=== PATIENT | male | born 1925 | race Caucasian/White ===

== ENCOUNTER 2016-11-02 19:00 | Inpatient (IN) | payer OTHER, MEDICARE ==
[~2016-11-02] VITALS: Ht 182.9 cm; Wt 76.4 kg
[~2016-11-02 19:00] MED LIST: ANSHCCR EXT; CLC100 PO; CMD5 PO; DILT120C68 PO; FLM4 PO; GABA1CAP PO; LSX20 PO; TRAM-10 PO; TRIATAB3 PO; ZNTT/150 PO
[2016-11-02] MEDS ORDERED: ALBUT/IPRATROP 3MG/0.5MG NEB 3 ML VIAL INH STA ×2 (21:22→21:32)
[2016-11-02] MEDS ORDERED: SODIUM CHLORIDE 0.9% 1000ML 1,000 ML IV STA (21:22)
[2016-11-02 21:50] LABS: ISTAT CREATININE 1.5 mg/dl (0.6-1.3); ISTAT HEMOGLOBIN 10.5 g/dl (14.0-18.0); ISTAT IONIZED CALCIUM 1.14 mmol/l (1.12-1.32)
[2016-11-02 21:54] LABS: HEMATOCRIT 31.9 % (42-52); MEAN CELL VOLUME 86.4 fL (80-100); MEAN CORPUSCULAR HEMOGLOBIN 27.6 pg (25-34); PLATELET COUNT 158 K/uL (130-400); RED BLOOD COUNT 3.69 M/uL (4.7-6.1); WHITE BLOOD COUNT 6.75 K/uL (4.8-10.8)
[2016-11-02 22:00] LABS: INR 2.8 (0.9-1.1); PROTHROMBIN TIME (PATIENT) 31.8 SECONDS (9.0-12.0)
[2016-11-02 22:06] LABS: BUN/CREATININE RATIO 21.3 (10-20); CALCIUM 8.8 mg/dl (8.5-10.1); CREATININE 1.7 mg/dl (0.60-1.40); MAGNESIUM 2.2 mg/dl (1.8-2.4); POTASSIUM 4.4 mmol/L (3.5-5.1)
--- NOTE | 2016-11-02 22:11 | DIAGNOSTIC IMAGING REPORT ---
CHEST ONE VIEW PORTABLE HISTORY: fever COMPARISON: Chest 06/27/2014. FINDINGS: Moderate right and small left pleural effusions are similar to the prior study. There is diffuse interstitial and vascular thickening consistent with pulmonary edema. The heart remains mildly enlarged. There are poststernotomy changes. No pneumothorax. Right basilar densities favor compressive atelectasis from the pleural fluid. IMPRESSION: No change in the pulmonary edema pattern and bilateral pleural effusions. Electronically signed by: Luis A Bhandari M.D. 11/02/2016 10:09 PM Dictated Date/Time: 11/02/2016 10:08 PM
[2016-11-02 22:16] LABS: CKMB/CK RATIO 1.6 (0-3.0)
[2016-11-02] MEDS ORDERED: FLM4 PO (22:21)
[2016-11-02] MEDS ORDERED: WARF5TAB7 PO (22:21)
[2016-11-02] MEDS ORDERED: PRS5 PO (22:21)
[2016-11-02] MEDS ORDERED: LPT/20 PO (22:21)
[2016-11-02] MEDS ORDERED: ISOS-11 PO (22:21)
[2016-11-02] MEDS ORDERED: DILT180C96 PO (22:21)
[2016-11-02] MEDS ORDERED: WARF2.5T8 PO (22:21)
[2016-11-02] MEDS ORDERED: LSX40 PO (22:21)
[2016-11-02] MEDS ORDERED: MAGN400T6 PO (22:21)
[2016-11-02] MEDS ORDERED: FUROSEMIDE 40 MG/4 ML VIAL IV STA (22:25)
[2016-11-02] MEDS ORDERED: METOPROLOL TARTRATE 1 MG/ML VIAL IV STA (22:26)
[2016-11-02 22:39] VITALS: PULSE 136; O2SAT 95
[2016-11-02 22:52] LABS: BASO % 0.3 %; BASO ABS # 0.02 K/uL (0-0.2); COMPLETE YES; DOHLE BODIES OCCASIONAL; EOS % 0.7 %; IG% 0.1 %; LYMPH % 7.3 %; LYMPH ABS # 0.49 K/uL (1.2-3.4); MONO % 5.8 %; NEUT % 85.8 %; OVALOCYTES 1+; POIKILOCYTOSIS PRESENT; SCHISTOCYTES OCCASIONAL; TOXIC GRANULATION 1+
[2016-11-02] MEDS ORDERED: ACETAMINOPHEN 325 MG TAB PO PRN (23:30)
[2016-11-02] MEDS ORDERED: ZOLPIDEM TARTRATE 5 MG TAB PO PRN (23:30)
[2016-11-02] MEDS ORDERED: HYDROCORTISONE HC 2.5% CRM 30GM TUBE EXT PRN (23:30)
[2016-11-02] MEDS ORDERED: NITROGLYCERIN 0.4 MG SL PER TAB CHARGE SL PRN (23:30)
[2016-11-02] MEDS ORDERED: ONDANSETRON INJ 2 MG/ML 2 ML VIAL IV PRN ×2 (23:30→23:45)
[2016-11-02] MEDS ORDERED: TRAMADOL HCL 50 MG TAB PO PRN (23:30)
[2016-11-02] MEDS ORDERED: OSELTAMIVIR PHOSPHATE 75 MG CAP PO STA (23:36)
[2016-11-02] MEDS ORDERED: VANCOMYCIN INJ 1,000 MG in SODIUM CHLORIDE 0.9% 250ML 250 ML IV STA (23:39)
[2016-11-02] MEDS ORDERED: METOPROLOL TARTRATE 1 MG/ML VIAL IV PRN (23:45)
[2016-11-03 00:20] LABS: CKMB/CK RATIO 1.8 (0-3.0)
[2016-11-03 00:27] LABS: MANUAL MICROSCOPIC REQUIRED? NO; REVIEW REQ? YES; URINE APPEARANCE CLEAR (CLEAR); URINE BILIRUBIN NEG (NEG); URINE COLOR YELLOW; URINE EPITHELIAL CELL AUTO 20-30 /lpf (0-5); URINE NITRITE NEG (NEG); URINE SPECIFIC GRAVITY 1.008 (1.000-1.030); UROBILINOGEN NEG (NEG); ZZUR CULT IF INDIC CLEAN CATCH YES
[2016-11-03] MEDS ORDERED: PIPERACILL/TAZOBAC IV 3.375 GM in DEXTROSE 5% 100ML IV ONE (00:30)
[2016-11-03] MEDS ORDERED: VANCOMYCIN CONSULT ACTIVE PRN (00:30)
[2016-11-03] MEDS ORDERED: LEVOFLOXACIN CONSULT ACTIVE PRN (00:30)
[2016-11-03] MEDS ORDERED: PIPERACILL/TAZOBAC CONSULT ACTIVE PRN (00:30)
[2016-11-03] MEDS ORDERED: LEVOFLOXACIN / D5W 500 MG in PREMIXED IN D5W 100 ML IV SCH (01:00)
[2016-11-03] MEDS: METHYLPREDNISOLONE IV 60 MG in SYRINGE 0 ML IV SCH ×4 (02:04→17:44)
--- NOTE | 2016-11-03 02:31 | EMERGENCY ROOM VISIT NOTE ---
History Report prepared by Benja: Cuco Robles Under the Supervision of: Dr. Maury Patel D.O. First contact with patient: 21:03 Chief Complaint: COUGH Stated Complaint: COUGH, WEAKNESS Nursing Triage Summary: Patients daughter reports congestion, weakness, and not being able to do much today. Daughter states "I didn't want to give him lots of over the counter meds since he's on a lot of meds and I was just diagnosed with the flu." History of Present Illness The patient is an 89 year old male who presents to the Emergency Room with complaints of worsening weakness and a persistent cough that began 3-4 days prior to arrival. The patient's daughter states that he was unable to perform his usual daily activities today secondary to his weakness. The patient also complains intermittent shortness of breath. He does have home oxygen, but only uses it on an as-needed basis. He denies any history of asthma or COPD. The patient denies headache, change in vision, fevers, nausea, vomiting, diarrhea, pain with urination, and melena. Source of History: patient, family Onset: 3-4 days PHARMACEUTICAL REPRESENTATIVE Position: other (Global) Quality: other (weakness) Timing: worsening Associated Symptoms: + SOB, No fevers Review of Systems See HPI for pertinent positives & negatives. A total of 10 systems reviewed and were otherwise negative. Past Medical & Surgical Medical Problems: (1) Hypoxia (2) Influenza A Family History No pertinent family history secondary to age. Social History Smoking Status: Never Smoker Drug Use: none Marital Status: Occupation Status: retired Current/Historical Medications Scheduled Atorvastatin (Atorvastatin Calcium), 20 MG PO HS Diltiazem Hcl Coated Beads (Diltiazem Cd), 180 MG PO QAM Docusate Sodium (Docusate Sodium), 100 MG PO BID Finasteride (Finasteride), 5 MG PO HS Furosemide (Furosemide), 40 MG PO QAM Gabapentin (Neurontin), 100 MG PO DAILY Isosorbide Mononitrate (Isosorbide Mononitrate ER), 30 MG PO QAM Magnesium Oxide (Mag-Ox), 400 MG PO BID Ranitidine (Zantac), 150 MG PO DAILY Tamsulosin HCl (Tamsulosin HCl), 0.4 MG PO HS Warfarin Sod (Jantoven), 2.5 MG PO MONDAYS Warfarin Sod (Jantoven), 5 MG PO 6XWK Scheduled PRN Hydrocortisone (Proctosol Hc), 1 APPLN EXT BID PRN for Hemorrhoids Tramadol (Ultram), 50 MG PO Q8H PRN for Pain Allergies Coded Allergies: No Known Allergies (Verified , 11/02/16) Physical Exam Vital Signs Date Time Temp Pulse Resp B/P Pulse Ox O2 Delivery O2 Flow Rate FiO2 11/02/16 23:01 130 20 126/69 100 BiPAP 35 11/02/16 22:44 125 106/70 11/02/16 22:39 136 95 35 11/02/16 22:23 147 24 107/63 100 Nasal Cannula 3.0 11/02/16 21:52 99 34 102/78 93 Nasal Cannula 2.0 11/02/16 21:18 93 11/02/16 19:05 36.5 101 20 94/45 100 Room Air Physical Exam GENERAL: Sitting up in bed, chronically ill appearing. On nasal cannula. No distress, non-toxic EYE EXAM: normal conjunctiva, PERRL and EOM's grossly intact OROPHARYNX: no exudate, no erythema, lips, buccal mucosa, and tongue normal and mucous membranes are moist NECK: supple, +JVD LUNGS: Rhonchi bilateral. Normal chest wall mechanics HEART: Tachycardiac rate. no murmurs, S1 normal and S2 normal ABDOMEN: abdomen soft, non-tender, normo-active bowel sounds, no masses, no rebound or guarding. BACK: Back is symmetrical on inspection and there is no deformity, no midline tenderness, no CVA tenderness. SKIN: no rashes and no bruising UPPER EXTREMITIES: upper extremities are grossly normal. LOWER EXTREMITIES: Bilateral pitting edema. NEURO EXAM: Normal sensorium, cranial nerves II-XII grossly intact, normal speech, no gross weakness of arms, no gross weakness of legs. Medical Decision & Procedures ER Provider Diagnostic Interpretation: Xray results per the radiologist and my interpretation. CHEST ONE VIEW PORTABLE HISTORY: fever COMPARISON: Chest 06/27/2014. FINDINGS: Moderate right and small left pleural effusions are similar to the prior study. There is diffuse interstitial and vascular thickening consistent with pulmonary edema. The heart remains mildly enlarged. There are poststernotomy changes. No pneumothorax. Right basilar densities favor compressive atelectasis from the pleural fluid. IMPRESSION: No change in the pulmonary edema pattern and bilateral pleural effusions. Electronically signed by: Luis A Bhandari M.D. 11/02/2016 10:09 PM Dictated Date/Time: 11/02/2016 10:08 PM Laboratory Results 11/02/16 21:35 Red Blood Count 3.69, Mean Corpuscular Volume 86.4, Mean Corpuscular Hemoglobin 27.6, Mean Corpuscular Hemoglobin Concent 32.0, Mean Platelet Volume 9.0, Neutrophils (%) (Auto) 85.8, Lymphocytes (%) (Auto) 7.3, Monocytes (%) (Auto) 5.8, Eosinophils (%) (Auto) 0.7, Basophils (%) (Auto) 0.3, Neutrophils # (Auto) 5.79, Lymphocytes # (Auto) 0.49, Monocytes # (Auto) 0.39, Eosinophils # (Auto) 0.05, Basophils # (Auto) 0.02 11/02/16 21:16 Test 11/02/16 21:16 11/02/16 21:34 11/02/16 21:35 11/02/16 21:41 Prothrombin Time 31.8 SECONDS (9.0-12.0) Prothromb Time International Ratio 2.8 (0.9-1.1) Est Creatinine Clear Calc Drug Dose 32.0 ml/min Estimated GFR () 40.8 Estimated GFR (Non- 35.2 BUN/Creatinine Ratio 21.3 (10-20) Calcium Level 8.8 mg/dl (8.5-10.1) Magnesium Level 2.2 mg/dl (1.8-2.4) Total Bilirubin 0.8 mg/dl (0.2-1) Direct Bilirubin 0.3 mg/dl (0-0.2) Aspartate Amino Transf (AST/SGOT) 17 U/L (15-37) Alanine Aminotransferase (ALT/SGPT) 12 U/L (12-78) Alkaline Phosphatase 62 U/L (45-117) Total Protein 7.0 gm/dl (6.4-8.2) Albumin 3.3 gm/dl (3.4-5.0) Influenza Type A Antigen POS for Influ A (NEG) Influenza Type B Antigen Neg for Influ B (NEG) Bedside Hemoglobin 10.5 g/dl (14.0-18.0) Bedside Hematocrit 31 % (42-52) Bedside Sodium 140 mEq/L (135-144) Bedside Potassium 4.4 mEq/L (3.3-5.0) Bedside Chloride 101 mEq/L (101-112) Bedside Total CO2 26 mEq/l (24-31) Anion Gap 19.0 mmol/L (16-25) Bedside Blood Urea Nitrogen 39 mg/dl (7-18) Bedside Creatinine 1.5 mg/dl (0.6-1.3) Bedside Glucose (other) 143 mg/dl (70-99) Bedside Ionized Calcium (Chuck) 1.14 mmol/l (1.12-1.32) White Blood Count 6.75 K/uL (4.8-10.8) Red Blood Count 3.69 M/uL (4.7-6.1) Hemoglobin 10.2 g/dL (14.0-18.0) Hematocrit 31.9 % (42-52) Mean Corpuscular Volume 86.4 fL (80-100) Mean Corpuscular Hemoglobin 27.6 pg (25-34) Mean Corpuscular Hemoglobin Concent 32.0 g/dl (32-36) Platelet Count 158 K/uL (130-400) Mean Platelet Volume 9.0 fL (7.4-10.4) Neutrophils (%) (Auto) 85.8 % Lymphocytes (%) (Auto) 7.3 % Monocytes (%) (Auto) 5.8 % Eosinophils (%) (Auto) 0.7 % Basophils (%) (Auto) 0.3 % Neutrophils # (Auto) 5.79 K/uL (1.4-6.5) Lymphocytes # (Auto) 0.49 K/uL (1.2-3.4) Monocytes # (Auto) 0.39 K/uL (0.11-0.59) Eosinophils # (Auto) 0.05 K/uL (0-0.5) Basophils # (Auto) 0.02 K/uL (0-0.2) RDW Standard Deviation 55.0 fL (36.4-46.3) RDW Coefficient of Variation 17.4 % (11.5-14.5) Immature Granulocyte % (Auto) 0.1 % Immature Granulocyte # (Auto) 0.01 K/uL (0.00-0.02) Toxic Granulation 1+ Dohle Bodies OCCASIONAL Poikilocytosis PRESENT Ovalocytes 1+ Schistocytes OCCASIONAL Bedside Lactic Acid Venous 2.10 mmol/L (0.90-1.70) Laboratory results per my review. Medications Administered Medications (Trade) Dose Ordered Sig/Vickey Route Start Time Stop Time Status Last Admin Dose Admin Sodium Chloride (Nss 1000ml) 1,000 ml @ 999 mls/hr Q1H1M STAT IV 11/02/16 21:22 11/02/16 22:22 DC 11/02/16 21:50 999 MLS/HR Albuterol/ Ipratropium (Duoneb) 3 ml NOW STAT INH 11/02/16 21:22 11/02/16 21:23 DC 11/02/16 21:50 3 ML Albuterol/ Ipratropium (Duoneb) 3 ml NOW STAT INH 11/02/16 21:32 11/02/16 21:33 DC 11/02/16 22:08 3 ML Furosemide (Lasix Inj) 40 mg NOW STAT IV 11/02/16 22:25 11/02/16 22:26 DC 11/02/16 22:44 40 MG Metoprolol Tartrate (Lopressor Iv) 2.5 mg NOW STAT IV 11/02/16 22:26 11/02/16 22:27 DC 11/02/16 22:44 2.5 MG ECG Indication: weakness Rate (beats per minute): 95 Rhythm: atrial fibrillation Findings: other (Poor baseline. Low voltage) ED Course ED COURSE: Vital signs were reviewed and showed Hypotensive and tachycardiac vitals. The patients medical record was reviewed The above diagnostic studies were performed and reviewed. ED treatments and interventions as stated above. 2115: The patient was evaluated in room B4. A complete history and physical examination was performed. 2: Ordered Albuterol 3 mL INH, Sodium Chloride 1000 mL @ 999 mL/hr IV. 2131: Ordered Albuterol 3 mL INH. 5: Ordered Furosemide 40 mg IV, Metoprolol 2.5 mg IV. 7: I discussed the case with Dr. Ailyn [place] [facility] [place], he will evaluate the patient for further treatment. 2310: Upon reevaluation, the patient is resting comfortably.I discussed my findings with the patient and he understands and agrees with the treatment plan. Based on the patients age, coexisting illnesses, exam and lab findings the decision to treat as an inpatient was made. The patient remained stable while under my care. The patient will be evaluated for further management. Medical Decision Differential diagnoses includes but is not limited to pneumonia, bronchitis, COPD/Asthma exacerbation, pneumothorax, pulmonary embolism, congestive heart failure, acute coronary syndrome Patient is an 82-year-old male who presents the ER for shortness of breath. On exam he does have crackles bilaterally associated with JVD and pitting edema in his lower extremities. Chest x-ray supports a right pleural effusion associated with pulmonary edema. He was given a dose of Lasix and placed on BiPAP with improvement of his symptoms. Initially with a productive cough and multiple sick contacts with family is given a neb treatment. He did flip into A. fib with RVR. His influenza was positive. Labs show no significant leukocytosis or anemia. BMP is remarkable for creatinine 1.7. Troponin was detectable at 0.2. EKG had a terrible baseline but did show A. fib with RVR. UA was unremarkable. He was also given a dose of Lasix as I do feel like this is clearly related to a combination of heart failure and influenza. On BiPAP patient did improve and his respiratory rate came down. On room air he was in the high 80s consequently was initially placed on nasal cannula and switched BiPAP throughout his stay in the ER. He was also given a dose of Lopressor for his A. fib with RVR in the 150s which was likely induced by the treatments. Consults Time Called: 2300 Consulting Physician: Dr. Ailyn PERKINS Hospitalist Returned Call: [phone] I discussed the case with Dr. [facility]n [facility], he will evaluate the patient for further treatment. Impression Primary Impression: Heart failure Additional Impressions: Influenza Elevated troponin Atrial fibrillation with RVR Hypoxia Critical Care I have personally spent 90 minutes of critical care time in the direct management of this patient. This includes bedside care, interpretation of diagnostic studies, and testing, discussion with consultants, patient, and family members, and other required patient management activities. This 90 minutes is in excess of all separately billable procedures. Scribe Attestation The scribe's documentation has been prepared under my direction and personally reviewed by me in its entirety. I confirm that the note above accurately reflects all work, treatment, procedures, and medical decision making performed by me. Departure Information Dispostion Being Evaluated By Hospitalist Referrals Magda Quiroga DO (PCP) Patient Instructions My [facility] Problem Qualifiers Primary Impression: Heart failure Heart failure type: unspecified heart failure type Heart failure chronicity: acute Qualified Codes: I50.9 - Heart failure, unspecified
[2016-11-03] MEDS ORDERED: LEVALBUTEROL/IPRATROPIUM NEB INH SCH (03:00)
[2016-11-03] MEDS ORDERED: VANCOMYCIN INJ 1,800 MG in SODIUM CHLORIDE 0.9% 500ML 500 ML IV SCH (03:00)
--- NOTE | 2016-11-03 04:53 | History and Physical ---
History & Physical Date & Time of Service: Nov 03, 2016 at 04:36 Chief Complaint: Hypoxia, Influenza A Primary Care Physician: Magda Quiroga DO History of Present Illness Source: patient, family The patient is an 82-year-old male who presents emergency department with progressively worsening cough, intermittent shortness of breath and generalized weakness that began about 4 days prior to arrival. His daughter reports that he was unable to perform his usual daily activities due to severe weakness. Social History Smoking Status: Never Smoker Smokeless Tobacco Use: No Alcohol Use: none Drug Use: none Marital Status: Occupational Status: retired Immunizations History of Influenza Vaccine: Unknown History of Tetanus Vaccine?: Unknown History of Pneumococcal: Yes Pneumococcal Date: Oct 30, 2011 History of Hepatitis B Vaccine: No Multi-Drug Resistant Organisms History of MDRO: No Allergies Coded Allergies: No Known Allergies (Verified , 11/02/16) Home Medications Scheduled Atorvastatin (Atorvastatin Calcium), 20 MG PO HS Diltiazem Hcl Coated Beads (Diltiazem Cd), 180 MG PO QAM Docusate Sodium (Docusate Sodium), 100 MG PO BID Finasteride (Finasteride), 5 MG PO HS Furosemide (Furosemide), 40 MG PO QAM Gabapentin (Neurontin), 100 MG PO DAILY Isosorbide Mononitrate (Isosorbide Mononitrate ER), 30 MG PO QAM Magnesium Oxide (Mag-Ox), 400 MG PO BID Ranitidine (Zantac), 150 MG PO DAILY Tamsulosin HCl (Tamsulosin HCl), 0.4 MG PO HS Warfarin Sod (Jantoven), 2.5 MG PO MONDAYS Warfarin Sod (Jantoven), 5 MG PO 6XWK Scheduled PRN Hydrocortisone (Proctosol Hc), 1 APPLN EXT BID PRN for Hemorrhoids Tramadol (Ultram), 50 MG PO Q8H PRN for Pain Review of Systems The patient denies chest pain, palpitations, lower extremity swelling, vision change, hearing change, sore throat, fevers, chills, sweats, weight change, fatigue, nausea, vomiting, abdominal pain, pelvic pain, blood in urine or stool , dysuria, urinary frequency or urgency, lightheadedness, dizziness, headache, memory loss, rash, abnormal bruising or bleeding, imbalance, focal weakness, back or neck pain, night sweats, or allergy symptoms. The review of systems is otherwise negative other than for that already noted above, and at least 10 systems have been reviewed. Physical Exam Vital Signs Date Time Temp Pulse Resp B/P Pulse Ox O2 Delivery O2 Flow Rate FiO2 11/03/16 01:25 108 11/03/16 00:17 114 16 120/78 98 BiPAP 11/02/16 23:01 130 20 126/69 100 BiPAP 35 11/02/16 22:44 125 106/70 11/02/16 22:39 136 95 35 11/02/16 22:23 147 24 107/63 100 Nasal Cannula 3.0 11/02/16 21:52 99 34 102/78 93 Nasal Cannula 2.0 11/02/16 21:18 93 11/02/16 19:05 36.5 101 20 94/45 100 Room Air The patient is awake, well-developed and adequately nourished, alert and oriented 3, normocephalic and atraumatic, lying in bed and in no acute distress. HEENT--PERRL, EOMI, mucous membranes and oropharynx dry. Neck--supple, no JVD or bruits, thyroid normal, trachea midline, no adenopathy. Heart--normal S1 and S2, no extra beats, no murmurs, rubs or gallops. Lungs--rhonchi and wheezes bilaterally, no respiratory distress, no accessory muscle use. Abdomen--normal bowel sounds and soft, nontender and nondistended, no hernias or masses, no organomegaly. Extremities--no cyanosis, clubbing or edema. There are good distal pulses b/l. Dermatologic--normal skin turgor, normal color, warm and dry, no abnormal lymph nodes, no rash. Neurologic--cranial nerves II through XII grossly intact, motor and sensory examination normal. Psychiatric--normal affect. Diagnostics Laboratory Results Results Past 24 Hours Test 11/02/16 21:16 11/02/16 21:34 11/02/16 21:35 11/02/16 21:41 Range/Units Prothrombin Time 31.8 9.0-12.0 SECONDS Prothromb Time International Ratio 2.8 0.9-1.1 Sodium Level 141 136-145 mmol/L Potassium Level 4.4 3.5-5.1 mmol/L Chloride Level 105 98-107 mmol/L Carbon Dioxide Level 23 21-32 mmol/L Anion Gap 13.0 19.0 16-25 mmol/L Blood Urea Nitrogen 36 7-18 mg/dl Creatinine 1.70 0.60-1.40 mg/dl Est Creatinine Clear Calc Drug Dose 32.0 ml/min Estimated GFR () 40.8 Estimated GFR (Non- 35.2 BUN/Creatinine Ratio 21.3 10-20 Random Glucose 135 70-99 mg/dl Calcium Level 8.8 8.5-10.1 mg/dl Magnesium Level 2.2 1.8-2.4 mg/dl Total Bilirubin 0.8 0.2-1 mg/dl Direct Bilirubin 0.3 0-0.2 mg/dl Aspartate Amino Transf (AST/SGOT) 17 15-37 U/L Alanine Aminotransferase (ALT/SGPT) 12 12-78 U/L Alkaline Phosphatase 62 45-117 U/L Total Creatine Kinase 126 39-308 U/L Creatine Kinase MB 2.0 0.5-3.6 ng/ml Creatine Kinase MB Ratio 1.6 0-3.0 Troponin I 0.238 0-0.045 ng/ml Total Protein 7.0 6.4-8.2 gm/dl Albumin 3.3 3.4-5.0 gm/dl Influenza Type A Antigen POS for Influ A NEG Influenza Type B Antigen Neg for Influ B NEG Bedside Hemoglobin 10.5 14.0-18.0 g/dl Bedside Hematocrit 31 42-52 % Bedside Sodium 140 135-144 mEq/L Bedside Potassium 4.4 3.3-5.0 mEq/L Bedside Chloride 101 101-112 mEq/L Bedside Total CO2 26 24-31 mEq/l Bedside Blood Urea Nitrogen 39 7-18 mg/dl Bedside Creatinine 1.5 0.6-1.3 mg/dl Bedside Glucose (other) 143 70-99 mg/dl Bedside Ionized Calcium (Chuck) 1.14 1.12-1.32 mmol/l White Blood Count 6.75 4.8-10.8 K/uL Red Blood Count 3.69 4.7-6.1 M/uL Hemoglobin 10.2 14.0-18.0 g/dL Hematocrit 31.9 42-52 % Mean Corpuscular Volume 86.4 80-100 fL Mean Corpuscular Hemoglobin 27.6 25-34 pg Mean Corpuscular Hemoglobin Concent 32.0 32-36 g/dl Platelet Count 158 130-400 K/uL Mean Platelet Volume 9.0 7.4-10.4 fL Neutrophils (%) (Auto) 85.8 % Lymphocytes (%) (Auto) 7.3 % Monocytes (%) (Auto) 5.8 % Eosinophils (%) (Auto) 0.7 % Basophils (%) (Auto) 0.3 % Neutrophils # (Auto) 5.79 1.4-6.5 K/uL Lymphocytes # (Auto) 0.49 1.2-3.4 K/uL Monocytes # (Auto) 0.39 0.11-0.59 K/uL Eosinophils # (Auto) 0.05 0-0.5 K/uL Basophils # (Auto) 0.02 0-0.2 K/uL RDW Standard Deviation 55.0 36.4-46.3 fL RDW Coefficient of Variation 17.4 11.5-14.5 % Immature Granulocyte % (Auto) 0.1 % Immature Granulocyte # (Auto) 0.01 0.00-0.02 K/uL Toxic Granulation 1+ Dohle Bodies OCCASIONAL Poikilocytosis PRESENT Ovalocytes 1+ Schistocytes OCCASIONAL Bedside Lactic Acid Venous 2.10 0.90-1.70 mmol/L Test 11/02/16 23:44 11/02/16 23:55 Range/Units Lactic Acid Level 2.6 0.4-2.0 mmol/L Total Creatine Kinase 110 39-308 U/L Creatine Kinase MB 2.0 0.5-3.6 ng/ml Creatine Kinase MB Ratio 1.8 0-3.0 Troponin I 0.181 0-0.045 ng/ml Urine Color YELLOW Urine Appearance CLEAR CLEAR Urine pH 5.0 4.5-7.5 Urine Specific [place] 1.008 1.000-1.030 Urine Protein NEG NEG Urine Glucose (UA) NEG NEG Urine Ketones NEG NEG Urine Occult Blood 1+ NEG Urine Nitrite NEG NEG Urine Bilirubin NEG NEG Urine Urobilinogen NEG NEG Urine Leukocyte Esterase NEG NEG Urine WBC (Auto) 1-5 0-5 /hpf Urine RBC (Auto) 5-10 0-4 /hpf Urine Hyaline Casts (Auto) 5-10 0-5 /lpf Urine Epithelial Cells (Auto) 20-30 0-5 /lpf Urine Bacteria (Auto) NEG NEG Urine Yeast (Auto) NONE PRSENT Microbiology Results 11/02/16 Blood Culture, Received Pending 11/02/16 Blood Culture, Received Pending 11/02/16 Urine Culture, Received Pending Diagnostic Radiology Patient Name: OTIS SOLIZ Unit Number: [id number] Dictated: 11/02/162207 Transcribed: 11/02/162207 PAJ Printed Date/Time: [~ rep prt dt]/[~ rep prt tm] [~ rep ct labl] - [~ rep ct ivnm] [facility] [place] [address] Dictated: 11/02/162207 Transcribed: 11/02/162207 PAJ Printed Date/Time: [~ rep prt dt]/[~ rep prt tm] [~ rep ct labl] - [~ rep ct ivnm] [~ rep ct add3]] CHEST ONE VIEW PORTABLE HISTORY: fever COMPARISON: Chest 06/27/2014. FINDINGS: Moderate right and small left pleural effusions are similar to the prior study. There is diffuse interstitial and vascular thickening consistent with pulmonary edema. The heart remains mildly enlarged. There are poststernotomy changes. No pneumothorax. Right basilar densities favor compressive atelectasis from the pleural fluid. IMPRESSION: No change in the pulmonary edema pattern and bilateral pleural effusions. Electronically signed by: Luis A Bhandari M.D. 11/02/2016 10:09 PM Dictated Date/Time: 11/02/2016 10:08 PM The status of this report is Signed. Draft = Not yet reviewed or approved by Radiologist. Signed = Reviewed and approved by Radiologist. <AttendingPhy></AttendingPhy> <FamilyPhy>Magda Quiroga DO</FamilyPhy> < PrimaryPhy>Magda Quiroga, DO</PrimaryPhy> <UnitNumber>[id number]</UnitNumber > <VisitNumber>[id number]</VisitNumber> <PatientName>OTIS SOLIZ</ PatientName> <DateOfBirth>1925</DateOfBirth> <Location>[facility]</Location> < ServiceDate>11/02/16</ServiceDate> <MNE>ESINDI</MNE> <OrderingPhy>Jorge Maury Granda DO</OrderingPhy> <OrderingPhyMNE>f rep ord dr kimble</OrderingPhyMNE> < DictatingPhyMNE>f rep dict dr kimble</DictatingPhyMNE> <CCListMNE>f rep ct mne</ CCListMNE> <AdmittingPhyMNE>f pt admit dr kimble</AdmittingPhyMNE> <AttendingPhyMNE >f pt attend dr kimble</AttendingPhyMNE> <ConsultingPhyMNE>f pt consult dr kimble</ConsultingPhyMNE> <FamilyPhyMNE>f pt fam dr kimble</FamilyPhyMNE> <OtherPhyMNE>f pt other dr kimble</OtherPhyMNE> < PrimaryPhyMNE>f pt prim care dr kimble</PrimaryPhyMNE> <ReferringPhyMNE>f pt referring dr kimble</ReferringPhyMNE> EKG EKG shows normal sinus rhythm at 95 bpm, left anterior fascicular block, old anteroseptal infarct, no acute ST-T changes. Significant baseline noise is present, and repeat EKG is ordered. Impression Assessment and Plan Influenza A bronchopneumonia--patient will be placed on Tamiflu 75 mg by mouth twice a day, Vancomycin IV per renal dosing, Zosyn 3.375 mg IV every 8 hours, levofloxacin 500 mg IV every 24 hours, Solu-Medrol 40 mg IV every 8 hours, guaifenesin extended release 600 mg by mouth twice a day, nasal cannula 2 L of oxygen titrating to keep pulse ox greater than or equal to 92%. Continue BiPAP started in the emergency department, and tapered down to nasal cannula O2 as tolerated. CAD/hypertension--continue diltiazem CD 180 mg by mouth every morning, isosorbide mononitrate ER 30 mg by mouth every morning, and warfarin 5 mg by mouth 6 times per week excluding Mondays when he takes 2.5 mg. Troponin upon admission is 0.238, which is likely secondary to supply demand mismatch, and he will be admitted to the telemetry unit for serial cardiac enzymes, cardiac rhythm monitoring and a 2-D echocardiogram with Dopplers. Hypercholesterolemia--continue atorvastatin 20 mg by mouth at bedtime. Renal insufficiency--creatinine of 1.70 is slightly above his baseline, and will repeat BMP and magnesium level in a.m. BPH--continue tamsulosin 0.4 mg by mouth at bedtime and finasteride 5 mg by mouth at bedtime. GERD--continue ranitidine 150 mg by mouth daily. Continue gabapentin 100 mg by mouth daily. Level of Care Telemetry Advanced Directives Existing Advance Directive: No Existing Living Will: No Existing Power of Soil Science Teacher: No Resuscitation Status FULL RESUSCITATION VTE Prophylaxis VTE Risk Assessment Done? Y/N: Yes Risk Level: Moderate Given or contraindicated: SCD's
[2016-11-03 05:00] VITALS: BP 106/62; PULSE 99; TEMP 36.4; O2SAT 95; BMI 22.5
[2016-11-03] MEDS ORDERED: PIPERACILL/TAZOBAC IV 3.375 GM in DEXTROSE 5% 100ML 100 ML IV SCH (06:00)
[2016-11-03] MEDS: PIPERACILL/TAZOBAC IV 3.375 GM in DEXTROSE 5% 100ML IV SCH ×3 (06:02→22:00)
[2016-11-03 07:53] LABS: BASO % 0.2 %; BASO ABS # 0.01 K/uL (0-0.2); COMPLETE YES; EOS % 0.2 %; HEMATOCRIT 29.3 % (42-52); IG% 0.2 %; LYMPH % 2.5 %; LYMPH ABS # 0.14 K/uL (1.2-3.4); MEAN CELL VOLUME 85.7 fL (80-100); MEAN CORPUSCULAR HEMOGLOBIN 27.2 pg (25-34); MEAN CORPUSCULAR HGB CONC 31.7 g/dl (32-36); MEAN PLATELET VOLUME 8.9 fL (7.4-10.4); MONO % 1.2 %; NEUT % 95.7 %; PLATELET COUNT 133 K/uL (130-400); RED BLOOD COUNT 3.42 M/uL (4.7-6.1)
[2016-11-03 08:00] VITALS: BP 127/73; PULSE 73; TEMP 36.9; O2SAT 95
[2016-11-03 08:14] LABS: BUN/CREATININE RATIO 20.9 (10-20); CALCIUM 8.5 mg/dl (8.5-10.1); CREATININE 1.7 mg/dl (0.60-1.40); MAGNESIUM 2.1 mg/dl (1.8-2.4); POTASSIUM 3.9 mmol/L (3.5-5.1)
[2016-11-03 08:16] LABS: INR 2.8 (0.9-1.1); PARTIAL THROMBOPLASTIN RATIO 1.6; PROTHROMBIN TIME (PATIENT) 31.1 SECONDS (9.0-12.0)
[2016-11-03 08:23] LABS: CKMB/CK RATIO 1.2 (0-3.0)
[2016-11-03] MEDS ORDERED: OSELTAMIVIR PHOSPHATE 75 MG CAP PO SCH (09:00)
[2016-11-03] MEDS: OSELTAMIVIR PHOSPHATE SUSP 30 MG/5 ML UDP PO SCH ×2 (10:05→20:09)
[2016-11-03] MEDS: FUROSEMIDE 40 MG TAB PO SCH (10:06)
[2016-11-03] MEDS: DOCUSATE SODIUM 100 MG CAP PO SCH ×2 (10:06→20:06)
[2016-11-03] MEDS: GUAIFENESIN 200 MG TAB PO SCH ×2 (10:06→20:05)
[2016-11-03] MEDS: ISOSORBIDE MONONITRATE 30 MG TABCR PO SCH (10:07)
[2016-11-03] MEDS: GABAPENTIN 100 MG CAP PO SCH (10:07)
[2016-11-03] MEDS: DILTIAZEM HCL 180 MG CAPCR PO SCH (10:07)
[2016-11-03] MEDS: MAGNESIUM OXIDE 400 MG TAB PO SCH ×2 (10:07→20:06)
[2016-11-03] MEDS: FINASTERIDE 5 MG TAB PO SCH ×2 (10:07→20:06)
[2016-11-03] MEDS: RANITIDINE HCL 150 MG TAB PO SCH (10:08)
--- NOTE | 2016-11-03 13:41 | ECHOCARDIOGRAM REPORT ---
*NOTICE TO RECEIVING DEMOCRAT AGENCY This information is strictly Confidential and protected under [place] law. [place] law prohibits you from making any further disclosure of this information unless further disclosure is expressly permitted by the written consent of the person to whom it pertains or is authorized by law. A general authorization for the release of medical or other information is not sufficient for this purpose. Hospital accepts no responsibility if the information is made available to any other person, INCLUDING THE PATIENT. Interpretation Summary * Name: OTIS SOLIZ Study Date: 11/03/2016 07:38 AM BP: 106/62 mmHg * Patient Location: C.EDINP\S\EDINP 1\S\8 HR: 60 * : 1925 (M/d/yyy) Gender: Male Height: 72 in * Age: 89 yrs Ethnicity: [place] Weight: 166 lb * Ordering Physician: Bronson Robertson * Referring Physician: Self, Referred * Performed By: Kaleigh Martin RCS * * Reason For Study: Elevated Troponins, Influenza A, Hypoxia * BSA: 2.0 m2 * -- Conclusions -- * 1. Normal left ventricular size with hyperdynamic systolic function. EF > 70%. No regional wall motion abnormalities. No left ventricular hypertrophy. Septal flattening during systole suggests elevated right ventricular systolic pressure. * 2. Moderate biatrial dilation. * 3. Aortic valve sclerosis mild, without significant aortic valvular stenosis. * 4. There is mild to moderate tricuspid regurgitation. * 5. There is mild mitral regurgitation. * 6. Pleural effusion. * 7. Moderate to severe pulmonary hypertension suggested with an estimated right ventricular systolic pressure of 58 mmHg. * 8. No prior study available for comparison. Procedure Details * A complete two-dimensional transthoracic echocardiogram was performed (2D, M-mode, Doppler and color flow Doppler). Left Ventricle * Normal left ventricular size with hyperdynamic systolic function. EF > 70%. No regional wall motion abnormalities. No left ventricular hypertrophy. Septal flattening during systole suggests elevated right ventricular systolic pressure. * Ejection Fraction = 65-70%. Right Ventricle * The right ventricle is grossly normal size. * The right ventricular systolic function is normal. Atria * The left atrium is moderately dilated. * The right atrium is moderately dilated. * There is no evidence of atrial septal defect, but resolution does not allow assessment for a patent foramen ovale. Mitral Valve * There is mild mitral annular calcification. * There is no mitral valve stenosis. * There is mild mitral regurgitation. Tricuspid Valve * The tricuspid valve is not well visualized, but is grossly normal. * There is no tricuspid stenosis. * There is mild to moderate tricuspid regurgitation. Aortic Valve * The aortic valve is trileaflet. * Aortic valve sclerosis mild, without significant aortic valvular stenosis. * No hemodynamically significant valvular aortic stenosis. * Trace aortic regurgitation. Pulmonic Valve * The pulmonary valve is inadequately visualized, but the Doppler data is adequate for interpretation. * There is no pulmonic valvular stenosis. * Mild pulmonic valvular regurgitation. Pericardium/Pleural * There is no pericardial effusion. * Pleural effusion. Great Vessels * Mildly dilated IVC with reduced inspiratory collapse. MMode 2D Measurements and Calculations IVSd 0.96 cm IVSs 1.3 cm LVIDd 3.6 cm LVIDs 2.2 cm LVPWd 0.96 cm LVPWs 1.3 cm IVS/LVPW 1.0 FS 39.5 % EDV(Teich) 56.2 ml ESV(Teich) 16.3 ml EF(Teich) 71.0 % EDV(cubed) 48.6 ml ESV(cubed) 10.7 ml EF(cubed) 77.9 % % IVS thick 35.9 % % LVPW thick 36.2 % LV mass(C)d 103.9 grams LV mass(C)dI 52.8 grams/m\S\2 LV mass(C)s 84.7 grams LV mass(C)sI 43.0 grams/m\S\2 CO(Teich) 2.8 l/min CI(Teich) 1.4 l/min/m\S\2 SV(Teich) 39.9 ml SI(Teich) 20.3 ml/m\S\2 CO(cubed) 2.6 l/min CI(cubed) 1.3 l/min/m\S\2 SV(cubed) 37.9 ml SI(cubed) 19.2 ml/m\S\2 Ao root diam 3.0 cm Ao root area 7.2 cm\S\2 ACS 1.6 cm LA dimension 4.3 cm asc Aorta Diam 2.9 cm LA/Ao 1.4 LVAd ap4 18.7 cm\S\2 LVLd ap4 6.2 cm EDV(MOD-sp4) 47.0 ml LVAs ap4 8.7 cm\S\2 LVLs ap4 5.3 cm ESV(MOD-sp4) 12.0 ml EF(MOD-sp4) 74.5 % LVAd ap2 22.7 cm\S\2 LVLd ap2 7.0 cm EDV(MOD-sp2) 62.0 ml LVAs ap2 12.0 cm\S\2 LVLs ap2 6.2 cm ESV(MOD-sp2) 20.0 ml EF(MOD-sp2) 67.7 % CO(MOD-sp4) 2.4 l/min CI(MOD-sp4) 1.2 l/min/m\S\2 SV(MOD-sp4) 35.0 ml SI(MOD-sp4) 17.8 ml/m\S\2 CO(MOD-sp2) 2.9 l/min CI(MOD-sp2) 1.5 l/min/m\S\2 SV(MOD-sp2) 42.0 ml SI(MOD-sp2) 21.3 ml/m\S\2 Doppler Measurements and Calculations MV E max perla 153.4 cm/sec MV dec time 0.15 sec Ao V2 max 136.4 cm/sec Ao max PG 7.4 mmHg Ao max PG (full) 4.2 mmHg LV V1 max PG 3.3 mmHg LV V1 max 90.2 cm/sec TV E max perla 76.5 cm/sec PA V2 max 111.3 cm/sec PA max PG 5.0 mmHg PI max perla 205.0 cm/sec PI max PG 16.8 mmHg PI dec slope 270.3 cm/sec\S\2 PI P1/2t 222.1 msec TR max perla 353.1 cm/sec RVSP(TR) 57.9 mmHg RAP systole 8.0 mmHg
--- NOTE | 2016-11-03 13:54 | Pharmacy Progress Note ---
Pharmacy Antibiotic Consult Date of Service: Nov 03, 2016. Pharmacy Dosing Scope Pharmacy is consulted to initiate Vancomycin IV dosing therapy, order appropriate labs and adjust drug dose/frequency. Subjective The patient is a 89 year old male admitted on Nov 02, 2016 at 23:30. Objective Height (Feet): 6 Height (Inches): 0.00 Weight (Kilograms): 75.400 Lab Results (24hrs): Laboratory Tests Test 11/02/16 21:16 11/02/16 21:35 11/03/16 07:30 BUN/Creatinine Ratio 21.3 20.9 Blood Urea Nitrogen 36 mg/dl 36 mg/dl Creatinine 1.70 mg/dl 1.70 mg/dl White Blood Count 6.75 K/uL 5.70 K/uL Red Blood Count 3.69 M/uL 3.42 M/uL Hemoglobin 10.2 g/dL 9.3 g/dL Hematocrit 31.9 % 29.3 % Mean Corpuscular Volume 86.4 fL 85.7 fL Mean Corpuscular Hemoglobin 27.6 pg 27.2 pg Mean Corpuscular Hemoglobin Concent 32.0 g/dl 31.7 g/dl Platelet Count 158 K/uL 133 K/uL Mean Platelet Volume 9.0 fL 8.9 fL Neutrophils (%) (Auto) 85.8 % 95.7 % Lymphocytes (%) (Auto) 7.3 % 2.5 % Monocytes (%) (Auto) 5.8 % 1.2 % Eosinophils (%) (Auto) 0.7 % 0.2 % Basophils (%) (Auto) 0.3 % 0.2 % Neutrophils # (Auto) 5.79 K/uL 5.46 K/uL Lymphocytes # (Auto) 0.49 K/uL 0.14 K/uL Monocytes # (Auto) 0.39 K/uL 0.07 K/uL Eosinophils # (Auto) 0.05 K/uL 0.01 K/uL Basophils # (Auto) 0.02 K/uL 0.01 K/uL Micro Results: Item Value Date Time Urine Culture Received 11/02/16 2355 Urine , Clean Catch Pending Blood Culture Received 11/02/16 2344 Blood Pending Blood Culture Received 11/02/168 Blood Pending Influenza Type A Antigen POS for Influ A *A 11/02/162115 Influenza Type B Antigen Neg for Influ B 11/02/162115 Assessment & Plan ASSESSMENT: * Patient is an 89yo male admitted with flu/pneumonia. * Patient is seen at the wound clinic for venous stasis ulcerations to Den/Tono GIRALDO. * Flu swab positive for influenza A. * Lactic acid 2.6mmol/L on admission. PLAN: VANCOMYCIN: * Loading dose: Vancomycin 1800 mg (~24mg/kg) IV X 1 dose then: * Vancomycin 1100 mg (~15mg/kg) IV every 24 hours. * Patient's estimated p'kinetic parameters (based on CrCl ~ 32mL/min): * Vd ~ 0.7L/kg Ke ~ 0.031/hr t1/2 ~ 22.3hr * Goal trough level estimate: between 15 - 20 mcg/mL for pneumonia. * Trough level has been ordered for: 11/05/16 prior to the 3rd maintenance dose (not yet steady-state) ZOSYN: * Zosyn 3.375gm IV x1 dose over 30 min, then * Zosyn 3.375gm IV q8h, extended 4-hr infusion LEVAQUIN: * Levaquin 500mg IV x1 dose * Levaquin 750mg IV q48h, for pneumonia in pts with CrCl < 50mL/min Tamiflu * 75mg PO x1, then 30mg PO q12h * dose reduced for CrCl less than 60mL/min Pharmacy will continue to follow and will adjust dose/frequency as necessary. Thank you
--- NOTE | 2016-11-03 14:09 | Medical Student: [facility] ---
Med Student Progress Note Date of Service Nov 03, 2016. Subjective This is an 89 year old male who presented to the ED after worsening shortness of breath, weakness and cough for the past 3-4 days. He was found to be influenza A + in the ED. Objective Vital Signs Date Time Temp Pulse Resp B/P Pulse Ox O2 Delivery O2 Flow Rate FiO2 11/03/16 12:10 Nasal Cannula 3.0 11/03/16 08:00 95 Nasal Cannula 2.0 11/03/16 08:00 36.9 73 18 127/73 95 Nasal Cannula 3.0 11/03/16 07:32 96 11/03/16 05:14 60 11/03/16 05:13 97 11/03/16 05:00 36.4 99 22 106/62 95 Nasal Cannula 4.0 11/03/16 01:25 108 11/03/16 00:17 114 16 120/78 98 BiPAP 11/02/16 23:01 130 20 126/69 100 BiPAP 35 11/02/16 22:44 125 106/70 11/02/16 22:39 136 95 35 11/02/16 22:23 147 24 107/63 100 Nasal Cannula 3.0 11/02/16 21:52 99 34 102/78 93 Nasal Cannula 2.0 11/02/16 21:18 93 11/02/16 19:05 36.5 101 20 94/45 100 Room Air Laboratory Results Last 24 Hours Test 11/02/16 21:16 11/02/16 21:34 11/02/16 21:35 11/02/16 21:41 Prothrombin Time 31.8 SECONDS Prothromb Time International Ratio 2.8 Sodium Level 141 mmol/L Potassium Level 4.4 mmol/L Chloride Level 105 mmol/L Carbon Dioxide Level 23 mmol/L Anion Gap 13.0 mmol/L 19.0 mmol/L Blood Urea Nitrogen 36 mg/dl Creatinine 1.70 mg/dl Est Creatinine Clear Calc Drug Dose 32.0 ml/min Estimated GFR () 40.8 Estimated GFR (Non- 35.2 BUN/Creatinine Ratio 21.3 Random Glucose 135 mg/dl Calcium Level 8.8 mg/dl Magnesium Level 2.2 mg/dl Total Bilirubin 0.8 mg/dl Direct Bilirubin 0.3 mg/dl Aspartate Amino Transf (AST/SGOT) 17 U/L Alanine Aminotransferase (ALT/SGPT) 12 U/L Alkaline Phosphatase 62 U/L Total Creatine Kinase 126 U/L Creatine Kinase MB 2.0 ng/ml Creatine Kinase MB Ratio 1.6 Troponin I 0.238 ng/ml Total Protein 7.0 gm/dl Albumin 3.3 gm/dl Influenza Type A Antigen POS for Influ A Influenza Type B Antigen Neg for Influ B Bedside Hemoglobin 10.5 g/dl Bedside Hematocrit 31 % Bedside Sodium 140 mEq/L Bedside Potassium 4.4 mEq/L Bedside Chloride 101 mEq/L Bedside Total CO2 26 mEq/l Bedside Blood Urea Nitrogen 39 mg/dl Bedside Creatinine 1.5 mg/dl Bedside Glucose (other) 143 mg/dl Bedside Ionized Calcium (Chuck) 1.14 mmol/l White Blood Count 6.75 K/uL Red Blood Count 3.69 M/uL Hemoglobin 10.2 g/dL Hematocrit 31.9 % Mean Corpuscular Volume 86.4 fL Mean Corpuscular Hemoglobin 27.6 pg Mean Corpuscular Hemoglobin Concent 32.0 g/dl Platelet Count 158 K/uL Mean Platelet Volume 9.0 fL Neutrophils (%) (Auto) 85.8 % Lymphocytes (%) (Auto) 7.3 % Monocytes (%) (Auto) 5.8 % Eosinophils (%) (Auto) 0.7 % Basophils (%) (Auto) 0.3 % Neutrophils # (Auto) 5.79 K/uL Lymphocytes # (Auto) 0.49 K/uL Monocytes # (Auto) 0.39 K/uL Eosinophils # (Auto) 0.05 K/uL Basophils # (Auto) 0.02 K/uL RDW Standard Deviation 55.0 fL RDW Coefficient of Variation 17.4 % Immature Granulocyte % (Auto) 0.1 % Immature Granulocyte # (Auto) 0.01 K/uL Toxic Granulation 1+ Dohle Bodies OCCASIONAL Poikilocytosis PRESENT Ovalocytes 1+ Schistocytes OCCASIONAL Bedside Lactic Acid Venous 2.10 mmol/L Test 11/02/16 23:44 11/02/16 23:55 11/03/16 07:30 Lactic Acid Level 2.6 mmol/L Total Creatine Kinase 110 U/L 151 U/L Creatine Kinase MB 2.0 ng/ml 1.8 ng/ml Creatine Kinase MB Ratio 1.8 1.2 Troponin I 0.181 ng/ml 0.207 ng/ml Urine Color YELLOW Urine Appearance CLEAR Urine pH 5.0 Urine Specific [place] 1.008 Urine Protein NEG Urine Glucose (UA) NEG Urine Ketones NEG Urine Occult Blood 1+ Urine Nitrite NEG Urine Bilirubin NEG Urine Urobilinogen NEG Urine Leukocyte Esterase NEG Urine WBC (Auto) 1-5 /hpf Urine RBC (Auto) 5-10 /hpf Urine Hyaline Casts (Auto) 5-10 /lpf Urine Epithelial Cells (Auto) 20-30 /lpf Urine Bacteria (Auto) NEG Urine Yeast (Auto) White Blood Count 5.70 K/uL Red Blood Count 3.42 M/uL Hemoglobin 9.3 g/dL Hematocrit 29.3 % Mean Corpuscular Volume 85.7 fL Mean Corpuscular Hemoglobin 27.2 pg Mean Corpuscular Hemoglobin Concent 31.7 g/dl Platelet Count 133 K/uL Mean Platelet Volume 8.9 fL Neutrophils (%) (Auto) 95.7 % Lymphocytes (%) (Auto) 2.5 % Monocytes (%) (Auto) 1.2 % Eosinophils (%) (Auto) 0.2 % Basophils (%) (Auto) 0.2 % Neutrophils # (Auto) 5.46 K/uL Lymphocytes # (Auto) 0.14 K/uL Monocytes # (Auto) 0.07 K/uL Eosinophils # (Auto) 0.01 K/uL Basophils # (Auto) 0.01 K/uL RDW Standard Deviation 53.9 fL RDW Coefficient of Variation 17.2 % Immature Granulocyte % (Auto) 0.2 % Immature Granulocyte # (Auto) 0.01 K/uL Prothrombin Time 31.1 SECONDS Prothromb Time International Ratio 2.8 Activated Partial Thromboplast Time 42.4 SECONDS Partial Thromboplastin Ratio 1.6 Sodium Level 140 mmol/L Potassium Level 3.9 mmol/L Chloride Level 104 mmol/L Carbon Dioxide Level 24 mmol/L Anion Gap 12.0 mmol/L Blood Urea Nitrogen 36 mg/dl Creatinine 1.70 mg/dl Est Creatinine Clear Calc Drug Dose 32.0 ml/min Estimated GFR () 40.8 Estimated GFR (Non- 35.2 BUN/Creatinine Ratio 20.9 Random Glucose 189 mg/dl Calcium Level 8.5 mg/dl Magnesium Level 2.1 mg/dl Assessment and Plan Assessment and Plan: This is an 89 year old male who has been admitted for treatment of influenza A+ bronchopneumonia. Influenza A bronchopneumonia -Tamiflu 75mg PO BID -Vanc IV per renal dosing -Levaquin 500 mg IV q24hr -Zosyn 2.275mg IV q8hr -Solumedrol 40mg IV q8hrs -Guaifenesin 600 mg BID -2l oxygen via nasal cannula. CAD/hypertension -diltiazem CD 180 mg by mouth every morning -isosorbide mononitrate ER 30 mg by mouth every morning -warfarin 5 mg by mouth 6 times per week excluding Mondays when he takes 2.5 mg. -monitor troponin as was .238 on admission -monitor cardiac enzymes, cardiac rhythm monitoring per telemetry -echo demonstrates: 1.Normal left ventricular size with hyperdynamic systolic function. EF > 70%. No regional wall motion abnormalities. No left ventricular hypertrophy. Septal flattening during systole suggests elevated right ventricular systolic pressure. * 2. Moderate biatrial dilation. * 3. Aortic valve sclerosis mild, without significant aortic valvular stenosis. * 4. There is mild to moderate tricuspid regurgitation. * 5. There is mild mitral regurgitation. * 6. Pleural effusion. * 7. Moderate to severe pulmonary hypertension suggested with an estimated right ventricular systolic pressure of 58 mmHg. * 8. No prior study available for comparison. Hypercholesterolemia -continue atorvastatin 20 mg by mouth at bedtime. Renal insufficiency -creatinine remains at 1.70, which is slightly above his baseline -continue IVF, repeat bmp tomorrow BPH -continue tamsulosin 0.4 mg by mouth at bedtime -finasteride 5 mg by mouth at bedtime. GERD -continue ranitidine 150 mg by mouth daily. Continue gabapentin 100 mg by mouth daily. Continued [facility] stay due to: abnormal vital signs, multiple IV medications needed
[2016-11-03 15:34] VITALS: BP 120/70; PULSE 86; TEMP 37; O2SAT 95
[2016-11-03 15:51] VITALS: O2SAT 95
[2016-11-03 16:13] LABS: CKMB/CK RATIO 1.9 (0-3.0)
[2016-11-03] MEDS: WARFARIN SOD 5 MG TAB PO SCH (16:19)
[2016-11-03 19:16] VITALS: BP 102/63; PULSE 102; TEMP 36.9; O2SAT 96
[2016-11-03] MEDS: TAMSULOSIN HCL 0.4 MG CAP PO SCH (20:06)
--- NOTE | 2016-11-03 21:26 | Progress Note ---
Subjective Subjective Date of Service: Nov 03, 2016. Pt evaluation today including: conversation w/ patient, physical exam, chart review, review of studies, review of inpatient medication list Problem List Medical Problems: (1) Atrial fibrillation with RVR Status: Acute (2) Elevated troponin Status: Acute (3) Heart failure Status: Acute (4) Influenza Status: Acute Review of Systems Constitutional: No fever ENT: No hearing loss Respiratory: + cough, + dyspnea on exertion, + wheezing Cardiac: No chest pain Abdomen: No pain Male : No dysuria Neurologic: No memory loss Psychiatric: No depression symptoms Endo: No fatigue Physical Exam Vital Signs Vital Signs Past 24 Hours: Date Time Temp Pulse Resp B/P Pulse Ox O2 Delivery O2 Flow Rate FiO2 11/03/16 20:00 Nasal Cannula 2.0 11/03/16 19:16 36.9 102 18 102/63 96 11/03/16 15:51 95 Nasal Cannula 2.0 11/03/16 15:34 37.0 86 18 120/70 95 11/03/16 12:10 Nasal Cannula 3.0 11/03/16 08:00 95 Nasal Cannula 2.0 11/03/16 08:00 36.9 73 18 127/73 95 Nasal Cannula 3.0 11/03/16 07:32 96 11/03/16 05:14 60 11/03/16 05:13 97 11/03/16 05:00 36.4 99 22 106/62 95 Nasal Cannula 4.0 11/03/16 01:25 108 11/03/16 00:17 114 16 120/78 98 BiPAP 11/02/16 23:01 130 20 126/69 100 BiPAP 35 11/02/16 22:44 125 106/70 11/02/16 22:39 136 95 35 11/02/16 22:23 147 24 107/63 100 Nasal Cannula 3.0 11/02/16 21:52 99 34 102/78 93 Nasal Cannula 2.0 Physical Exam: General Appearance: WD/WN, no apparent distress Eyes: bilateral eyes normal inspection ENT: hearing grossly normal Neck: supple Respiratory/Chest: + wheezing Cardiovascular: regular rate, rhythm, no JVD Abdomen: normal bowel sounds Extremities: non-tender, normal inspection Neurologic/Psychiatric: alert, oriented x 3 Medications Medications: Current Inpatient Medications Medications (Trade) Dose Ordered Sig/Vickey Route Start Time Stop Time Status Last Admin Dose Admin Acetaminophen (Tylenol Tab) 650 mg Q4H PRN PO 11/02/16 23:30 12/02/16 23:29 11/03/16 04:42 650 MG Zolpidem Tartrate (Ambien Tab) 5 mg HSZ PRN PO 11/02/16 23:30 12/02/16 23:29 Nitroglycerin (Nitrostat Tab) 0.4 mg UD PRN SL 11/02/16 23:30 12/02/16 23:29 Atorvastatin Calcium (Lipitor Tab) 20 mg HS PO 11/03/16 21:00 12/03/16 20:59 Diltiazem HCl (Cardizem Cd Cap) 180 mg QAM PO 11/03/16 09:00 12/03/16 08:59 11/03/16 10:07 180 MG Docusate Sodium (coLACE CAP) 100 mg BID PO 11/03/16 09:00 12/03/16 08:59 11/03/16 20:06 100 MG Finasteride (Proscar Tab) 5 mg HS PO 11/03/16 21:00 12/03/16 20:59 11/03/16 20:06 5 MG Furosemide (Lasix Tab) 40 mg QAM PO 11/03/16 09:00 12/03/16 08:59 11/03/16 10:06 40 MG Gabapentin (Neurontin Cap) 100 mg DAILY PO 11/03/16 09:00 12/03/16 08:59 11/03/16 10:07 100 MG Hydrocortisone (Proctozone Hc 2.5% Crm) 1 appln BID PRN EXT 11/02/16 23:30 12/02/16 23:29 Isosorbide Mononitrate (Imdur Ext Rel Tab) 30 mg QAM PO 11/03/16 09:00 12/03/16 08:59 11/03/16 10:07 30 MG Magnesium Oxide (Mag-Ox Tab) 400 mg BID PO 11/03/16 09:00 12/03/16 08:59 11/03/16 20:06 400 MG Ranitidine HCl (zANTac TAB) 150 mg DAILY PO 11/03/16 09:00 12/03/16 08:59 11/03/16 10:08 150 MG Tamsulosin HCl (Flomax Cap) 0.4 mg HS PO 11/03/16 21:00 12/03/16 20:59 11/03/16 20:06 0.4 MG Tramadol HCl (Ultram Tab) 50 mg Q8H PRN PO 11/02/16 23:30 12/02/16 23:29 11/03/16 08:05 50 MG Warfarin Sodium (Coumadin Tab) 2.5 mg Mo@1600 PO 11/08/16 16:00 12/08/16 15:59 Warfarin Sodium 5 mg 5 mg SuTuWeThFrSa@1600 PO 11/03/16 16:00 12/03/16 15:59 11/03/16 16:19 5 MG Methylprednisolone Sodium Succinate/ Syringe (Solu-Medrol IV/ Syringe) 0.96 ml @ 1.5 mls/min Q6H IV 11/03/16 00:30 12/03/16 00:29 11/03/16 17:44 1.5 MLS/MIN Ondansetron HCl (Zofran Inj) 4 mg Q6H PRN IV 11/02/16 23:45 12/02/16 23:44 Guaifenesin (Organidin Nr Tab) 600 mg BID PO 11/03/16 09:00 12/03/16 08:59 11/03/16 20:05 600 MG Metoprolol Tartrate 2.5 mg 2.5 mg Q4 PRN IV 11/02/16 23:45 12/02/16 23:44 Piperacillin Sod/ Tazobactam Sod/ Dextrose (Zosyn Iv/D5 100ml) 115 ml @ 28.75 mls/ hr Q8H IV 11/03/16 06:00 11/10/16 05:59 11/03/16 13:56 28.75 MLS/HR Piperacillin Sod/ Tazobactam Sod (Consult) 1 ea UD PRN N/A 11/03/16 00:30 12/03/16 00:29 Vancomycin HCl (Consult) 1 ea UD PRN N/A 11/03/16 00:30 12/03/16 00:29 Levofloxacin 1 ea 1 ea UD PRN N/A 11/03/16 00:30 12/03/16 00:29 Levofloxacin/Prmx (Levaquin / D5W/ Premixed D5W) 150 ml @ 100 mls/hr Q48H IV 11/04/16 22:00 11/10/16 21:59 Oseltamivir Phosphate 30 mg 30 mg BID PO 11/03/16 09:00 11/08/16 08:59 11/03/16 20:09 30 MG Vancomycin HCl/ Sodium Chloride (Vancomycin Inj/ Nss 250ml) 272 ml @ 125 mls/hr Q24H IV 11/04/16 04:00 11/10/16 03:59 Laboratory Data Labs: Last 24 Hours Test 11/02/16 21:34 11/02/16 21:35 11/02/16 21:41 11/02/16 23:44 Bedside Hemoglobin 10.5 g/dl Bedside Hematocrit 31 % Bedside Sodium 140 mEq/L Bedside Potassium 4.4 mEq/L Bedside Chloride 101 mEq/L Bedside Total CO2 26 mEq/l Anion Gap 19.0 mmol/L Bedside Blood Urea Nitrogen 39 mg/dl Bedside Creatinine 1.5 mg/dl Bedside Glucose (other) 143 mg/dl Bedside Ionized Calcium (Chuck) 1.14 mmol/l White Blood Count 6.75 K/uL Red Blood Count 3.69 M/uL Hemoglobin 10.2 g/dL Hematocrit 31.9 % Mean Corpuscular Volume 86.4 fL Mean Corpuscular Hemoglobin 27.6 pg Mean Corpuscular Hemoglobin Concent 32.0 g/dl Platelet Count 158 K/uL Mean Platelet Volume 9.0 fL Neutrophils (%) (Auto) 85.8 % Lymphocytes (%) (Auto) 7.3 % Monocytes (%) (Auto) 5.8 % Eosinophils (%) (Auto) 0.7 % Basophils (%) (Auto) 0.3 % Neutrophils # (Auto) 5.79 K/uL Lymphocytes # (Auto) 0.49 K/uL Monocytes # (Auto) 0.39 K/uL Eosinophils # (Auto) 0.05 K/uL Basophils # (Auto) 0.02 K/uL RDW Standard Deviation 55.0 fL RDW Coefficient of Variation 17.4 % Immature Granulocyte % (Auto) 0.1 % Immature Granulocyte # (Auto) 0.01 K/uL Toxic Granulation 1+ Dohle Bodies OCCASIONAL Poikilocytosis PRESENT Ovalocytes 1+ Schistocytes OCCASIONAL Bedside Lactic Acid Venous 2.10 mmol/L Lactic Acid Level 2.6 mmol/L Total Creatine Kinase 110 U/L Creatine Kinase MB 2.0 ng/ml Creatine Kinase MB Ratio 1.8 Troponin I 0.181 ng/ml Test 11/02/16 23:55 11/03/16 07:30 11/03/16 15:37 Urine Color YELLOW Urine Appearance CLEAR Urine pH 5.0 Urine Specific [place] 1.008 Urine Protein NEG Urine Glucose (UA) NEG Urine Ketones NEG Urine Occult Blood 1+ Urine Nitrite NEG Urine Bilirubin NEG Urine Urobilinogen NEG Urine Leukocyte Esterase NEG Urine WBC (Auto) 1-5 /hpf Urine RBC (Auto) 5-10 /hpf Urine Hyaline Casts (Auto) 5-10 /lpf Urine Epithelial Cells (Auto) 20-30 /lpf Urine Bacteria (Auto) NEG Urine Yeast (Auto) White Blood Count 5.70 K/uL Red Blood Count 3.42 M/uL Hemoglobin 9.3 g/dL Hematocrit 29.3 % Mean Corpuscular Volume 85.7 fL Mean Corpuscular Hemoglobin 27.2 pg Mean Corpuscular Hemoglobin Concent 31.7 g/dl Platelet Count 133 K/uL Mean Platelet Volume 8.9 fL Neutrophils (%) (Auto) 95.7 % Lymphocytes (%) (Auto) 2.5 % Monocytes (%) (Auto) 1.2 % Eosinophils (%) (Auto) 0.2 % Basophils (%) (Auto) 0.2 % Neutrophils # (Auto) 5.46 K/uL Lymphocytes # (Auto) 0.14 K/uL Monocytes # (Auto) 0.07 K/uL Eosinophils # (Auto) 0.01 K/uL Basophils # (Auto) 0.01 K/uL RDW Standard Deviation 53.9 fL RDW Coefficient of Variation 17.2 % Immature Granulocyte % (Auto) 0.2 % Immature Granulocyte # (Auto) 0.01 K/uL Prothrombin Time 31.1 SECONDS Prothromb Time International Ratio 2.8 Activated Partial Thromboplast Time 42.4 SECONDS Partial Thromboplastin Ratio 1.6 Sodium Level 140 mmol/L Potassium Level 3.9 mmol/L Chloride Level 104 mmol/L Carbon Dioxide Level 24 mmol/L Anion Gap 12.0 mmol/L Blood Urea Nitrogen 36 mg/dl Creatinine 1.70 mg/dl Est Creatinine Clear Calc Drug Dose 32.0 ml/min Estimated GFR () 40.8 Estimated GFR (Non- 35.2 BUN/Creatinine Ratio 20.9 Random Glucose 189 mg/dl Calcium Level 8.5 mg/dl Magnesium Level 2.1 mg/dl Total Creatine Kinase 151 U/L 216 U/L Creatine Kinase MB 1.8 ng/ml 4.1 ng/ml Creatine Kinase MB Ratio 1.2 1.9 Troponin I 0.207 ng/ml 0.156 ng/ml Assessment and Plan Influenza A bronchopneumonia--patient will be placed on Tamiflu 75 mg by mouth twice a day, Vancomycin IV per renal dosing, Zosyn 3.375 mg IV every 8 hours, levofloxacin 500 mg IV every 24 hours, Solu-Medrol 40 mg IV every 8 hours, guaifenesin extended release 600 mg by mouth twice a day, nasal cannula 2 L of oxygen titrating to keep pulse ox greater than or equal to 92%. Continue BiPAP started in the emergency department, and tapered down to nasal cannula O2 as tolerated. CAD/hypertension--continue diltiazem CD 180 mg by mouth every morning, isosorbide mononitrate ER 30 mg by mouth every morning, and warfarin 5 mg by mouth 6 times per week excluding Mondays when he takes 2.5 mg. Troponin upon admission is 0.238, which is likely secondary to supply demand mismatch, a cont telemetry unit for serial cardiac enzymes, echocardiogram with Dopplers.Normal left ventricular size with hyperdynamic systolic function. EF > 70%. No regional wall motion abnormalities. No left ventricular hypertrophy. Septal flattening during systole suggests elevated right ventricular systolic pressure. Ejection Fraction = 65-70%Moderate to severe pulmonary hypertension suggested with an estimated right ventricular systolic pressure of 58 mmHg. Hypercholesterolemia--continue atorvastatin 20 mg by mouth at bedtime. Renal insufficiency--creatinine of 1.70 is slightly above his baseline, and will repeat BMP and magnesium level in a.m. BPH--continue tamsulosin 0.4 mg by mouth at bedtime and finasteride 5 mg by mouth at bedtime. GERD--continue ranitidine 150 mg by mouth daily. Continue gabapentin 100 mg by mouth daily. Continued [facility] stay due to: abnormal vital signs, multiple IV medications needed
[2016-11-03] MEDS: ATORVASTATIN 20 MG TAB PO SCH (21:48)
[2016-11-04] VITALS (10 sets, daily range): BP systolic 118–156; BP diastolic 72–91; PULSE 92–115; TEMP 36.3–36.7; O2SAT 91–93
[2016-11-04] MEDS: METHYLPREDNISOLONE IV 60 MG in SYRINGE 0 ML IV SCH ×4 (00:08→18:17)
[2016-11-04] MEDS: VANCOMYCIN INJ 1,100 MG in SODIUM CHLORIDE 0.9% 250ML 250 ML IV SCH (03:34)
[2016-11-04] MEDS: PIPERACILL/TAZOBAC IV 3.375 GM in DEXTROSE 5% 100ML IV SCH ×2 (05:35→14:39)
[2016-11-04 06:23] LABS: COMPLETE YES; HEMATOCRIT 29.8 % (42-52); IG% 0.1 %; LYMPH % 1.4 %; LYMPH ABS # 0.11 K/uL (1.2-3.4); MEAN CORPUSCULAR HEMOGLOBIN 26.7 pg (25-34); MEAN CORPUSCULAR HGB CONC 32.2 g/dl (32-36); MEAN PLATELET VOLUME 8.9 fL (7.4-10.4); MONO % 3.3 %; NEUT % 95.2 %; PLATELET COUNT 135 K/uL (130-400); RED BLOOD COUNT 3.59 M/uL (4.7-6.1); WHITE BLOOD COUNT 7.82 K/uL (4.8-10.8)
[2016-11-04 06:41] LABS: PARTIAL THROMBOPLASTIN RATIO 1.8; PROTHROMBIN TIME (PATIENT) 41.1 SECONDS (9.0-12.0)
[2016-11-04 06:45] LABS: BUN/CREATININE RATIO 23.8 (10-20); CALCIUM 8.6 mg/dl (8.5-10.1); CREATININE 1.7 mg/dl (0.60-1.40); MAGNESIUM 2.3 mg/dl (1.8-2.4)
[2016-11-04 07:00] LABS: INR 3.6 (0.9-1.1)
--- NOTE | 2016-11-04 07:36 | Clinical Documentation Query ---
MARITO Mosher : CLINICAL DOCUMENTATION QUERIES QUERY 1 OF 3 Patient is an 89 year old male admitted with influenza A bronchopneumonia. Documentation includes "renal insufficiency", not otherwise specified, but noting creatinine of 1.70 mg/dl is only slightly above baseline. Estimated GFR range from 15 to present of 35-37 ml/min. Please explicitly specify the associated stage of CKD in your patient as "renal insufficiency" assigns a code for an unspecified disorder of the kidney. Thank you. In your clinical opinion is this patient being managed for: ( x ) Chronic kidney disease, stage 3 ( ) Other explanation of clinical findings (Please Explain) ( ) Unable to determine (Please Define) ( ) Need to Discuss ( ) Not Agree The medical record reflects the following clinical findings, treatment, and risk factors. Clinical Indicators: As above Treatment: IVF, serial chemistries Risk Factors: Age, medications QUERY 2 OF 3 Serum troponin upon admission of 0.238, noted to be "likely secondary to supply demand mismatch". As appropriate, consider clarification of this statement as suggested below as this cannot be assumed by the professional shift nurse manager to be associated with myocardial ischemia. In your clinical opinion is this patient being managed for: ( x ) Myocardial demand ischemia ( ) Other explanation of clinical findings (Please Explain) ( ) Unable to determine (Please Define) ( ) Need to Discuss ( ) Not Agree The medical record reflects the following clinical findings, treatment, and risk factors. Clinical Indicators: Elevated troponin in the setting of CAD and atrial fibrillation with RVR. Treatment: Rate control, treatment of influenza/bronchopneumonia/physiologic stress Risk Factors: Age, CAD, infection, hypertension QUERY 3 OF 3 Echocardiogram demonstrated normal biventricular systolic function. Chest radiograph on admission demonstrated moderate right and small left pleural effusions, similar to prior study, and diffuse interstitial and vascular thickening consistent with pulmonary edema. Historical EMR documentation includes a diagnosis of chronic diastolic CHF. Risk factors include age, CAD, hypertension. Home treatment regimen includes Lasix, Cardizem CD, and Isosorbide. In your clinical opinion is this patient being managed for/have a personal history of: ( x ) Chronic diastolic CHF ( ) Other explanation of clinical findings (Please Explain) ( ) Unable to determine (Please Define) ( ) Need to Discuss ( ) Not Agree The medical record reflects the following clinical findings, treatment, and risk factors. Clinical Indicators: As above Treatment: Home medications include Lasix, Isosorbide, and Diltiazem CD Risk Factors: Age, CAD, hypertension Please clarify and document your clinical opinion in the progress notes and discharge summary. Terms such as "probable", "suspected", "likely", "questionable", "possible", or "still to be ruled out" are acceptable. IF IN AGREEMENT, YOU MUST DOCUMENT ABOVE DIAGNOSTIC STATEMENT IN DAILY PROGRESS NOTES AND DISCHARGE SUMMARY. This document is not part of the patient's record. Thank You, Ishan Sherwood, CORNEL [phone]
[2016-11-04] MEDS: DOCUSATE SODIUM 100 MG CAP PO SCH ×2 (08:41→20:02)
[2016-11-04] MEDS: FUROSEMIDE 40 MG TAB PO SCH (08:41)
[2016-11-04] MEDS: GABAPENTIN 100 MG CAP PO SCH (08:42)
[2016-11-04] MEDS: MAGNESIUM OXIDE 400 MG TAB PO SCH ×2 (08:42→20:02)
[2016-11-04] MEDS: GUAIFENESIN 200 MG TAB PO SCH ×2 (08:42→20:04)
[2016-11-04] MEDS: DILTIAZEM HCL 180 MG CAPCR PO SCH (08:42)
[2016-11-04] MEDS ORDERED: NURSING DECISION MEDICATION ORDER SCH (08:45)
[2016-11-04] MEDS: OSELTAMIVIR PHOSPHATE SUSP 30 MG/5 ML UDP PO SCH ×2 (08:48→22:07)
--- NOTE | 2016-11-04 09:51 | Medical Student: [facility] ---
Med Student Progress Note Date of Service Nov 04, 2016. Subjective Patient is 89 year old male admitted with increasing SOB and weakness, found to be influenza A+. He feels well overall today, with no changes in his cough. He had some leg pain overnight but says it has resolved. He has been afebrile since admission and is oxygenating at 91% on room air. He denies fevers, chills , chest pain, nausea, vomiting, diarrhea. Review of Systems Constitutional: No chills, No fever Respiratory: + cough, + shortness of breath, + sputum Cardiac: No chest pain Musculoskeletal: No joint pain, No muscle pain, No swelling Male : No dysuria Heme: No abnormal bleeding/bruising Objective Vital Signs Date Time Temp Pulse Resp B/P Pulse Ox O2 Delivery O2 Flow Rate FiO2 11/04/16 08:09 92 Room Air 11/04/16 07:56 36.5 106 18 131/84 91 Room Air 11/04/16 04:00 93 Room Air 11/04/16 03:29 36.3 98 20 156/91 93 Room Air 11/04/16 00:08 36.4 105 18 144/72 93 Room Air 11/04/16 00:01 Nasal Cannula 2.0 11/03/16 20:00 Nasal Cannula 2.0 11/03/16 19:16 36.9 102 18 102/63 96 11/03/16 15:51 95 Nasal Cannula 2.0 11/03/16 15:34 37.0 86 18 120/70 95 11/03/16 12:10 Nasal Cannula 3.0 Physical Exam General Appearance: WD/WN, no apparent distress Neck: supple, no adenopathy, thyroid normal, no JVD Respiratory/Chest: chest non-tender, lungs clear, normal breath sounds, no respiratory distress, no accessory muscle use Cardiovascular: no edema, no gallop, no JVD, no murmur, + irregularly irregular Abdomen: normal bowel sounds, non tender, soft Extremities: normal range of motion, non-tender, no calf tenderness, + pertinent finding (b/l wrappings on calves) Neurologic/Psychiatric: no motor/sensory deficits, alert, normal mood/affect, oriented x 3 Skin: normal color, warm/dry Lymphatic: no adenopathy Laboratory Results Last 24 Hours Test 11/03/16 15:37 11/04/16 06:04 Total Creatine Kinase 216 U/L Creatine Kinase MB 4.1 ng/ml Creatine Kinase MB Ratio 1.9 Troponin I 0.156 ng/ml White Blood Count 7.82 K/uL Red Blood Count 3.59 M/uL Hemoglobin 9.6 g/dL Hematocrit 29.8 % Mean Corpuscular Volume 83.0 fL Mean Corpuscular Hemoglobin 26.7 pg Mean Corpuscular Hemoglobin Concent 32.2 g/dl Platelet Count 135 K/uL Mean Platelet Volume 8.9 fL Neutrophils (%) (Auto) 95.2 % Lymphocytes (%) (Auto) 1.4 % Monocytes (%) (Auto) 3.3 % Eosinophils (%) (Auto) 0.0 % Basophils (%) (Auto) 0.0 % Neutrophils # (Auto) 7.44 K/uL Lymphocytes # (Auto) 0.11 K/uL Monocytes # (Auto) 0.26 K/uL Eosinophils # (Auto) 0.00 K/uL Basophils # (Auto) 0.00 K/uL RDW Standard Deviation 50.9 fL RDW Coefficient of Variation 16.7 % Immature Granulocyte % (Auto) 0.1 % Immature Granulocyte # (Auto) 0.01 K/uL Prothrombin Time 41.1 SECONDS Prothromb Time International Ratio 3.6 Activated Partial Thromboplast Time 45.5 SECONDS Partial Thromboplastin Ratio 1.8 Sodium Level 140 mmol/L Potassium Level 4.0 mmol/L Chloride Level 103 mmol/L Carbon Dioxide Level 27 mmol/L Anion Gap 10.0 mmol/L Blood Urea Nitrogen 40 mg/dl Creatinine 1.70 mg/dl Est Creatinine Clear Calc Drug Dose 32.5 ml/min Estimated GFR () 40.8 Estimated GFR (Non- 35.2 BUN/Creatinine Ratio 23.8 Random Glucose 211 mg/dl Calcium Level 8.6 mg/dl Magnesium Level 2.3 mg/dl Medications Medications Administered Medications (Trade) Dose Ordered Sig/Vickey Route Start Time Stop Time Status Last Admin Dose Admin Sodium Chloride (Nss 1000ml) 1,000 ml @ 999 mls/hr Q1H1M STAT IV 11/02/16 21:22 11/02/16 22:22 DC 11/02/16 21:50 999 MLS/HR Albuterol/ Ipratropium (Duoneb) 3 ml NOW STAT INH 11/02/16 21:22 2/21/17 21:23 DC 11/02/16 21:50 3 ML Albuterol/ Ipratropium (Duoneb) 3 ml NOW STAT INH 11/02/16 21:32 11/02/16 21:33 DC 11/02/16 22:08 3 ML Furosemide (Lasix Inj) 40 mg NOW STAT IV 11/02/16 22:25 11/02/16 22:26 DC 11/02/16 22:44 40 MG Metoprolol Tartrate (Lopressor Iv) 2.5 mg NOW STAT IV 11/02/16 22:26 11/02/16 22:27 DC 11/02/16 22:44 2.5 MG Acetaminophen (Tylenol Tab) 650 mg Q4H PRN PO 11/02/16 23:30 12/02/16 23:29 11/03/16 04:42 650 MG Atorvastatin Calcium (Lipitor Tab) 20 mg HS PO 11/03/16 21:00 12/03/16 20:59 11/03/16 21:48 20 MG Diltiazem HCl (Cardizem Cd Cap) 180 mg QAM PO 11/03/16 09:00 12/03/16 08:59 11/04/16 08:42 180 MG Docusate Sodium (coLACE CAP) 100 mg BID PO 11/03/16 09:00 12/03/16 08:59 11/04/16 08:41 100 MG Finasteride (Proscar Tab) 5 mg HS PO 11/03/16 21:00 12/03/16 20:59 11/03/16 20:06 5 MG Furosemide (Lasix Tab) 40 mg QAM PO 11/03/16 09:00 12/03/16 08:59 11/04/16 08:41 40 MG Gabapentin (Neurontin Cap) 100 mg DAILY PO 11/03/16 09:00 12/03/16 08:59 11/04/16 08:42 100 MG Isosorbide Mononitrate (Imdur Ext Rel Tab) 30 mg QAM PO 11/03/16 09:00 12/03/16 08:59 11/03/16 10:07 30 MG Magnesium Oxide (Mag-Ox Tab) 400 mg BID PO 11/03/16 09:00 12/03/16 08:59 11/04/16 08:42 400 MG Ranitidine HCl (zANTac TAB) 150 mg DAILY PO 11/03/16 09:00 12/03/16 08:59 11/03/16 10:08 150 MG Tamsulosin HCl (Flomax Cap) 0.4 mg HS PO 11/03/16 21:00 12/03/16 20:59 11/03/16 20:06 0.4 MG Tramadol HCl (Ultram Tab) 50 mg Q8H PRN PO 11/02/16 23:30 12/02/16 23:29 11/03/16 08:05 50 MG Warfarin Sodium (Coumadin Tab) 5 mg SuTuWeThFrSa@1600 PO 11/03/16 16:00 12/03/16 15:59 11/03/16 16:19 5 MG Oseltamivir Phosphate 75 mg 75 mg NOW STAT PO 11/02/16 23:36 11/02/16 23:54 DC 11/03/16 00:16 75 MG Methylprednisolone Sodium Succinate 60 mg/Syringe 0.96 ml @ 1.5 mls/min Q6H IV 11/03/16 00:30 12/03/16 00:29 11/04/16 06:13 1.5 MLS/MIN Levofloxacin/Prmx (Levaquin / D5W/ Premixed D5W) 100 ml @ 100 mls/hr TODAY@0100 IV 11/03/16 01:00 11/03/16 01:59 DC 11/03/16 02:03 100 MLS/HR Guaifenesin 600 mg 600 mg BID PO 11/03/16 09:00 12/03/16 08:59 11/04/16 08:42 600 MG Piperacillin Sod/ Tazobactam Sod 3.375 gm/Dextrose 115 ml @ 230 mls/hr TODAY@0030 ONCE IV 11/03/16 00:30 11/03/16 00:59 DC 11/03/16 01:26 230 MLS/HR Piperacillin Sod/ Tazobactam Sod 3.375 gm/Dextrose 115 ml @ 28.75 mls/ hr Q8H IV 11/03/16 06:00 11/10/16 05:59 11/04/16 05:35 28.75 MLS/HR Vancomycin HCl/ Sodium Chloride (Vancomycin Inj/ Nss 500ml) 536 ml @ 200 mls/hr TODAY@0300 IV 11/03/16 03:00 11/03/16 05:41 DC 11/03/16 03:30 200 MLS/HR Oseltamivir Phosphate 30 mg 30 mg BID PO 11/03/16 09:00 11/08/16 08:59 11/04/16 08:48 30 MG Vancomycin HCl/ Sodium Chloride (Vancomycin Inj/ Nss 250ml) 272 ml @ 125 mls/hr Q24H IV 11/04/16 04:00 11/10/16 03:59 11/04/16 03:34 125 MLS/HR Assessment and Plan Assessment and Plan: This is an 89 year old male who has been admitted for treatment of influenza A+ bronchopneumonia. Influenza A bronchopneumonia -Tamiflu 75mg PO BID -Vanc IV per renal dosing -Levaquin 500 mg IV q24hr -Zosyn 2.275mg IV q8hr -Solumedrol 40mg IV q8hrs -Guaifenesin 600 mg BID -2l oxygen via nasal cannula. CAD/hypertension -diltiazem CD 180 mg by mouth every morning -isosorbide mononitrate ER 30 mg by mouth every morning -warfarin 5 mg by mouth 6 times per week excluding Mondays when he takes 2.5 mg. -monitor troponin as was .238 on admission -monitor cardiac enzymes, cardiac rhythm monitoring per telemetry -echo demonstrates: 1.Normal left ventricular size with hyperdynamic systolic function. EF > 70%. No regional wall motion abnormalities. No left ventricular hypertrophy. Septal flattening during systole suggests elevated right ventricular systolic pressure. * 2. Moderate biatrial dilation. * 3. Aortic valve sclerosis mild, without significant aortic valvular stenosis. * 4. There is mild to moderate tricuspid regurgitation. * 5. There is mild mitral regurgitation. * 6. Pleural effusion. * 7. Moderate to severe pulmonary hypertension suggested with an estimated right ventricular systolic pressure of 58 mmHg. * 8. No prior study available for comparison. Hypercholesterolemia -continue atorvastatin 20 mg by mouth at bedtime. Renal insufficiency -creatinine remains at 1.70, which is slightly above his baseline -continue IVF, repeat bmp tomorrow BPH -continue tamsulosin 0.4 mg by mouth at bedtime -finasteride 5 mg by mouth at bedtime. GERD -continue ranitidine 150 mg by mouth daily. Continue gabapentin 100 mg by mouth daily. Continued [facility] stay due to: abnormal vital signs, multiple IV medications needed
[2016-11-04] MEDS: RANITIDINE HCL 150 MG TAB PO SCH (09:53)
[2016-11-04] MEDS: ISOSORBIDE MONONITRATE 30 MG TABCR PO SCH (09:54)
--- NOTE | 2016-11-04 15:06 | Progress Note ---
Subjective Subjective Date of Service: Nov 04, 2016. Pt evaluation today including: conversation w/ patient, physical exam, chart review, review of studies, review of inpatient medication list Problem List Medical Problems: (1) Atrial fibrillation with RVR Status: Acute (2) Elevated troponin Status: Acute (3) Heart failure Status: Acute (4) Influenza Status: Acute Review of Systems Constitutional: No fever, No weight loss Respiratory: + cough, + dyspnea on exertion Abdomen: No pain Male : No dysuria Psychiatric: No depression symptoms Endo: No fatigue Physical Exam Vital Signs Vital Signs Past 24 Hours: Date Time Temp Pulse Resp B/P Pulse Ox O2 Delivery O2 Flow Rate FiO2 11/04/16 12:45 36.7 108 20 148/86 93 Room Air 11/04/16 12:20 36.5 115 18 91 2.0 11/04/16 11:33 36.5 115 18 130/90 91 2.0 11/04/16 09:50 36.5 106 18 92 11/04/16 08:09 92 Room Air 11/04/16 07:56 36.5 106 18 131/84 91 Room Air 11/04/16 04:00 93 Room Air 11/04/16 03:29 36.3 98 20 156/91 93 Room Air 11/04/16 00:08 36.4 105 18 144/72 93 Room Air 11/04/16 00:01 Nasal Cannula 2.0 11/03/16 20:00 Nasal Cannula 2.0 11/03/16 19:16 36.9 102 18 102/63 96 11/03/16 15:51 95 Nasal Cannula 2.0 11/03/16 15:34 37.0 86 18 120/70 95 Physical Exam: General Appearance: WD/WN, no apparent distress Eyes: bilateral eyes normal inspection ENT: hearing grossly normal Neck: supple Respiratory/Chest: chest non-tender, + wheezing Cardiovascular: regular rate, rhythm, no JVD Abdomen: non tender, no pulsatile mass Extremities: normal inspection Neurologic/Psychiatric: alert, oriented x 3 Medications Medications: Current Inpatient Medications Medications (Trade) Dose Ordered Sig/Vickey Route Start Time Stop Time Status Last Admin Dose Admin Acetaminophen (Tylenol Tab) 650 mg Q4H PRN PO 11/02/16 23:30 12/02/16 23:29 11/03/16 04:42 650 MG Zolpidem Tartrate (Ambien Tab) 5 mg HSZ PRN PO 11/02/16 23:30 12/02/16 23:29 Nitroglycerin (Nitrostat Tab) 0.4 mg UD PRN SL 11/02/16 23:30 12/02/16 23:29 Atorvastatin Calcium (Lipitor Tab) 20 mg HS PO 11/03/16 21:00 12/03/16 20:59 11/03/16 21:48 20 MG Diltiazem HCl (Cardizem Cd Cap) 180 mg QAM PO 11/03/16 09:00 12/03/16 08:59 11/04/16 08:42 180 MG Docusate Sodium (coLACE CAP) 100 mg BID PO 11/03/16 09:00 12/03/16 08:59 11/04/16 08:41 100 MG Finasteride (Proscar Tab) 5 mg HS PO 11/03/16 21:00 12/03/16 20:59 11/03/16 20:06 5 MG Furosemide (Lasix Tab) 40 mg QAM PO 11/03/16 09:00 12/03/16 08:59 11/04/16 08:41 40 MG Gabapentin (Neurontin Cap) 100 mg DAILY PO 11/03/16 09:00 12/03/16 08:59 11/04/16 08:42 100 MG Hydrocortisone (Proctozone Hc 2.5% Crm) 1 appln BID PRN EXT 11/02/16 23:30 12/02/16 23:29 Isosorbide Mononitrate (Imdur Ext Rel Tab) 30 mg QAM PO 11/03/16 09:00 12/03/16 08:59 11/04/16 09:54 30 MG Magnesium Oxide (Mag-Ox Tab) 400 mg BID PO 11/03/16 09:00 12/03/16 08:59 11/04/16 08:42 400 MG Ranitidine HCl (zANTac TAB) 150 mg DAILY PO 11/03/16 09:00 12/03/16 08:59 11/04/16 09:53 150 MG Tamsulosin HCl (Flomax Cap) 0.4 mg HS PO 11/03/16 21:00 12/03/16 20:59 11/03/16 20:06 0.4 MG Tramadol HCl (Ultram Tab) 50 mg Q8H PRN PO 11/02/16 23:30 12/02/16 23:29 11/03/16 08:05 50 MG Warfarin Sodium (Coumadin Tab) 2.5 mg Mo@1600 PO 11/08/16 16:00 12/08/16 15:59 Warfarin Sodium 5 mg 5 mg SuTuWeThFrSa@1600 PO 11/03/16 16:00 12/03/16 15:59 11/03/16 16:19 5 MG Methylprednisolone Sodium Succinate/ Syringe (Solu-Medrol IV/ Syringe) 0.96 ml @ 1.5 mls/min Q6H IV 11/03/16 00:30 12/03/16 00:29 11/04/16 12:32 1.5 MLS/MIN Ondansetron HCl (Zofran Inj) 4 mg Q6H PRN IV 11/02/16 23:45 12/02/16 23:44 Guaifenesin (Organidin Nr Tab) 600 mg BID PO 11/03/16 09:00 12/03/16 08:59 11/04/16 08:42 600 MG Metoprolol Tartrate 2.5 mg 2.5 mg Q4 PRN IV 11/02/16 23:45 12/02/16 23:44 Piperacillin Sod/ Tazobactam Sod/ Dextrose (Zosyn Iv/D5 100ml) 115 ml @ 28.75 mls/ hr Q8H IV 11/03/16 06:00 11/10/16 05:59 11/04/16 14:39 28.75 MLS/HR Piperacillin Sod/ Tazobactam Sod (Consult) 1 ea UD PRN N/A 11/03/16 00:30 12/03/16 00:29 Vancomycin HCl (Consult) 1 ea UD PRN N/A 11/03/16 00:30 12/03/16 00:29 Levofloxacin 1 ea 1 ea UD PRN N/A 11/03/16 00:30 12/03/16 00:29 Levofloxacin/Prmx (Levaquin / D5W/ Premixed D5W) 150 ml @ 100 mls/hr Q48H IV 11/04/16 22:00 11/10/16 21:59 Oseltamivir Phosphate 30 mg 30 mg BID PO 11/03/16 09:00 11/08/16 08:59 11/04/16 08:48 30 MG Vancomycin HCl/ Sodium Chloride (Vancomycin Inj/ Nss 250ml) 272 ml @ 125 mls/hr Q24H IV 11/04/16 04:00 11/10/16 03:59 11/04/16 03:34 125 MLS/HR Multi-Ingredient Ointment (Eucerin Unscented Cr) 1 appln BID EXT 11/04/16 20:00 12/04/16 20:59 Laboratory Data Labs: Last 24 Hours Test 11/03/16 15:37 11/04/16 06:04 Total Creatine Kinase 216 U/L Creatine Kinase MB 4.1 ng/ml Creatine Kinase MB Ratio 1.9 Troponin I 0.156 ng/ml White Blood Count 7.82 K/uL Red Blood Count 3.59 M/uL Hemoglobin 9.6 g/dL Hematocrit 29.8 % Mean Corpuscular Volume 83.0 fL Mean Corpuscular Hemoglobin 26.7 pg Mean Corpuscular Hemoglobin Concent 32.2 g/dl Platelet Count 135 K/uL Mean Platelet Volume 8.9 fL Neutrophils (%) (Auto) 95.2 % Lymphocytes (%) (Auto) 1.4 % Monocytes (%) (Auto) 3.3 % Eosinophils (%) (Auto) 0.0 % Basophils (%) (Auto) 0.0 % Neutrophils # (Auto) 7.44 K/uL Lymphocytes # (Auto) 0.11 K/uL Monocytes # (Auto) 0.26 K/uL Eosinophils # (Auto) 0.00 K/uL Basophils # (Auto) 0.00 K/uL RDW Standard Deviation 50.9 fL RDW Coefficient of Variation 16.7 % Immature Granulocyte % (Auto) 0.1 % Immature Granulocyte # (Auto) 0.01 K/uL Prothrombin Time 41.1 SECONDS Prothromb Time International Ratio 3.6 Activated Partial Thromboplast Time 45.5 SECONDS Partial Thromboplastin Ratio 1.8 Sodium Level 140 mmol/L Potassium Level 4.0 mmol/L Chloride Level 103 mmol/L Carbon Dioxide Level 27 mmol/L Anion Gap 10.0 mmol/L Blood Urea Nitrogen 40 mg/dl Creatinine 1.70 mg/dl Est Creatinine Clear Calc Drug Dose 32.5 ml/min Estimated GFR () 40.8 Estimated GFR (Non- 35.2 BUN/Creatinine Ratio 23.8 Random Glucose 211 mg/dl Calcium Level 8.6 mg/dl Magnesium Level 2.3 mg/dl Assessment and Plan Influenza A bronchopneumonia--patient will be placed on Tamiflu 75 mg by mouth twice a day, Vancomycin IV per renal dosing, Zosyn 3.375 mg IV every 8 hours, levofloxacin 500 mg IV every 24 hours, Solu-Medrol 40 mg IV every 8 hours, guaifenesin extended release 600 mg by mouth twice a day, nasal cannula 2 L of oxygen titrating to keep pulse ox greater than or equal to 92%. BiPAP, tapered down to nasal cannula O2 as tolerated. CAD/hypertension--continue diltiazem CD 180 mg by mouth every morning, isosorbide mononitrate ER 30 mg by mouth every morning, and warfarin 5 mg by mouth 6 times per week excluding Mondays when he takes 2.5 mg. Myocardial demand ischemia, Troponin upon admission is 0.238, which is likely secondary to supply demand mismatch, cont telemetry unit for serial cardiac enzymes, Chronic diastolic CHF, stable echocardiogram with Dopplers. Normal left ventricular size with hyperdynamic systolic function. EF > 70%. No regional wall motion abnormalities. No left ventricular hypertrophy. Septal flattening during systole suggests elevated right ventricular systolic pressure. Ejection Fraction = 65-70% Moderate to severe pulmonary hypertension suggested with an estimated right ventricular systolic pressure of 58 mmHg. Hypercholesterolemia, continue atorvastatin 20 mg by mouth at bedtime. Acute Renal insufficiency on CKD stage 3, creatinine of 1.70 is slightly above his baseline, serial BMP BPH, continue tamsulosin 0.4 mg by mouth at bedtime and finasteride 5 mg by mouth at bedtime. GERD, continue ranitidine 150 mg by mouth daily. Continue gabapentin 100 mg by mouth daily. FULL Code Continued [facility] stay due to: abnormal vital signs, multiple IV medications needed
[2016-11-04] MEDS: WARFARIN SOD 5 MG TAB PO SCH (16:09)
[2016-11-04] MEDS: EUCERIN CR 120 GM JAR EXT SCH (20:01)
[2016-11-04] MEDS: TAMSULOSIN HCL 0.4 MG CAP PO SCH (22:08)
[2016-11-04] MEDS: ATORVASTATIN 20 MG TAB PO SCH (22:09)
[2016-11-04] MEDS: FINASTERIDE 5 MG TAB PO SCH (22:10)
[2016-11-04] MEDS: LEVOFLOXACIN 750MG / D5W IV SCH (22:27)
[2016-11-05] MEDS: PIPERACILL/TAZOBAC IV 3.375 GM in DEXTROSE 5% 100ML IV SCH ×2 (00:15→06:29)
[2016-11-05] MEDS: METHYLPREDNISOLONE IV 60 MG in SYRINGE 0 ML IV SCH ×5 (00:17→23:43)
[2016-11-05 00:36] VITALS: BP 156/91; PULSE 114; TEMP 36.2; O2SAT 91
[2016-11-05] MEDS: VANCOMYCIN INJ 1,100 MG in SODIUM CHLORIDE 0.9% 250ML 250 ML IV SCH (04:29)
[2016-11-05] MEDS: OSELTAMIVIR PHOSPHATE SUSP 30 MG/5 ML UDP PO SCH ×2 (07:21→20:39)
[2016-11-05] MEDS: RANITIDINE HCL 150 MG TAB PO SCH (07:21)
[2016-11-05] MEDS: GUAIFENESIN 200 MG TAB PO SCH ×2 (07:21→20:37)
[2016-11-05] MEDS: ISOSORBIDE MONONITRATE 30 MG TABCR PO SCH (07:22)
[2016-11-05] MEDS: MAGNESIUM OXIDE 400 MG TAB PO SCH ×2 (07:22→20:36)
[2016-11-05] MEDS: FUROSEMIDE 40 MG TAB PO SCH (07:22)
[2016-11-05] MEDS: DILTIAZEM HCL 180 MG CAPCR PO SCH (07:22)
[2016-11-05] MEDS: GABAPENTIN 100 MG CAP PO SCH (07:22)
[2016-11-05] MEDS: DOCUSATE SODIUM 100 MG CAP PO SCH ×2 (07:23→20:36)
[2016-11-05] MEDS: EUCERIN CR 120 GM JAR EXT SCH ×2 (07:23→20:38)
[2016-11-05 07:44] LABS: BASO % 0.1 %; BASO ABS # 0.01 K/uL (0-0.2); COMPLETE YES; IG% 0.2 %; LYMPH % 2.3 %; MEAN CORPUSCULAR HEMOGLOBIN 27.2 pg (25-34); MEAN CORPUSCULAR HGB CONC 32.4 g/dl (32-36); MEAN PLATELET VOLUME 9.2 fL (7.4-10.4); MONO % 1.5 %; NEUT % 95.9 %; PLATELET COUNT 192 K/uL (130-400); RED BLOOD COUNT 3.93 M/uL (4.7-6.1); WHITE BLOOD COUNT 13.07 K/uL (4.8-10.8)
[2016-11-05 07:48] VITALS: BP 155/76; PULSE 119; TEMP 36.4; O2SAT 90
[2016-11-05 08:00] LABS: PARTIAL THROMBOPLASTIN RATIO 1.6; PROTHROMBIN TIME (PATIENT) 47.8 SECONDS (9.0-12.0)
[2016-11-05 08:06] LABS: INR 4.2 (0.9-1.1)
[2016-11-05 08:19] LABS: BUN/CREATININE RATIO 27.7 (10-20); CALCIUM 9.3 mg/dl (8.5-10.1); CREATININE 1.6 mg/dl (0.60-1.40); MAGNESIUM 2.3 mg/dl (1.8-2.4); POTASSIUM 3.8 mmol/L (3.5-5.1)
--- NOTE | 2016-11-05 11:25 | Progress Note ---
Subjective Subjective Date of Service: Nov 05, 2016. Pt evaluation today including: conversation w/ patient, physical exam, chart review, review of studies, review of inpatient medication list Problem List Medical Problems: (1) Atrial fibrillation with RVR Status: Acute (2) Elevated troponin Status: Acute (3) Heart failure Status: Acute (4) Influenza Status: Acute Review of Systems Constitutional: No fever ENT: No hearing loss Respiratory: + dyspnea on exertion, No cough Abdomen: No pain Male : No dysuria Neurologic: No memory loss Psychiatric: No depression symptoms Endo: No fatigue Physical Exam Vital Signs Vital Signs Past 24 Hours: Date Time Temp Pulse Resp B/P Pulse Ox O2 Delivery O2 Flow Rate FiO2 11/05/16 08:00 Nasal Cannula 2.0 11/05/16 07:48 36.4 119 22 155/76 90 Nasal Cannula 2.0 11/05/16 00:36 36.2 114 22 156/91 91 Nasal Cannula 2.0 11/05/16 00:00 Nasal Cannula 2.0 11/04/16 20:00 Nasal Cannula 2.0 11/04/16 16:21 36.7 92 20 118/78 93 Nasal Cannula 2.0 11/04/16 16:00 Nasal Cannula 2.0 11/04/16 12:45 36.7 108 20 148/86 93 Room Air 11/04/16 12:20 36.5 115 18 91 2.0 11/04/16 11:33 36.5 115 18 130/90 91 2.0 Physical Exam: General Appearance: WD/WN, no apparent distress Eyes: bilateral eyes normal inspection ENT: hearing grossly normal Neck: supple Respiratory/Chest: chest non-tender, no accessory muscle use, + wheezing ( improved) Cardiovascular: regular rate, rhythm, no gallop Abdomen: non tender, no pulsatile mass Extremities: non-tender, normal inspection Medications Medications: Current Inpatient Medications Medications (Trade) Dose Ordered Sig/Vickey Route Start Time Stop Time Status Last Admin Dose Admin Acetaminophen (Tylenol Tab) 650 mg Q4H PRN PO 11/02/16 23:30 12/02/16 23:29 11/03/16 04:42 650 MG Zolpidem Tartrate (Ambien Tab) 5 mg HSZ PRN PO 11/02/16 23:30 12/02/16 23:29 Nitroglycerin (Nitrostat Tab) 0.4 mg UD PRN SL 11/02/16 23:30 12/02/16 23:29 Atorvastatin Calcium (Lipitor Tab) 20 mg HS PO 11/03/16 21:00 12/03/16 20:59 11/04/16 22:09 20 MG Diltiazem HCl (Cardizem Cd Cap) 180 mg QAM PO 11/03/16 09:00 12/03/16 08:59 11/05/16 07:22 180 MG Docusate Sodium (coLACE CAP) 100 mg BID PO 11/03/16 09:00 12/03/16 08:59 11/05/16 07:23 100 MG Finasteride (Proscar Tab) 5 mg HS PO 11/03/16 21:00 12/03/16 20:59 11/04/16 22:10 5 MG Furosemide (Lasix Tab) 40 mg QAM PO 11/03/16 09:00 12/03/16 08:59 11/05/16 07:22 40 MG Gabapentin (Neurontin Cap) 100 mg DAILY PO 11/03/16 09:00 12/03/16 08:59 11/05/16 07:22 100 MG Hydrocortisone (Proctozone Hc 2.5% Crm) 1 appln BID PRN EXT 11/02/16 23:30 12/02/16 23:29 Isosorbide Mononitrate (Imdur Ext Rel Tab) 30 mg QAM PO 11/03/16 09:00 12/03/16 08:59 11/05/16 07:22 30 MG Magnesium Oxide (Mag-Ox Tab) 400 mg BID PO 11/03/16 09:00 12/03/16 08:59 11/05/16 07:22 400 MG Ranitidine HCl (zANTac TAB) 150 mg DAILY PO 11/03/16 09:00 12/03/16 08:59 11/05/16 07:21 150 MG Tamsulosin HCl (Flomax Cap) 0.4 mg HS PO 11/03/16 21:00 12/03/16 20:59 11/04/16 22:08 0.4 MG Tramadol HCl (Ultram Tab) 50 mg Q8H PRN PO 11/02/16 23:30 12/02/16 23:29 11/03/16 08:05 50 MG Warfarin Sodium (Coumadin Tab) 2.5 mg Mo@1600 PO 11/08/16 16:00 12/08/16 15:59 Warfarin Sodium 5 mg 5 mg SuTuWeThFrSa@1600 PO 11/03/16 16:00 12/03/16 15:59 11/04/16 16:09 5 MG Methylprednisolone Sodium Succinate/ Syringe (Solu-Medrol IV/ Syringe) 0.96 ml @ 1.5 mls/min Q6H IV 11/03/16 00:30 12/03/16 00:29 11/05/16 06:28 1.5 MLS/MIN Ondansetron HCl (Zofran Inj) 4 mg Q6H PRN IV 11/02/16 23:45 12/02/16 23:44 Guaifenesin (Organidin Nr Tab) 600 mg BID PO 11/03/16 09:00 12/03/16 08:59 11/05/16 07:21 600 MG Metoprolol Tartrate 2.5 mg 2.5 mg Q4 PRN IV 11/02/16 23:45 12/02/16 23:44 Piperacillin Sod/ Tazobactam Sod/ Dextrose (Zosyn Iv/D5 100ml) 115 ml @ 28.75 mls/ hr Q8H IV 11/03/16 06:00 11/10/16 05:59 11/05/16 06:29 28.75 MLS/HR Piperacillin Sod/ Tazobactam Sod (Consult) 1 ea UD PRN N/A 11/03/16 00:30 12/03/16 00:29 Vancomycin HCl (Consult) 1 ea UD PRN N/A 11/03/16 00:30 12/03/16 00:29 Levofloxacin 1 ea 1 ea UD PRN N/A 11/03/16 00:30 12/03/16 00:29 Levofloxacin/Prmx (Levaquin / D5W/ Premixed D5W) 150 ml @ 100 mls/hr Q48H IV 11/04/16 22:00 11/10/16 21:59 11/04/16 22:27 100 MLS/HR Oseltamivir Phosphate 30 mg 30 mg BID PO 11/03/16 09:00 11/08/16 08:59 11/05/16 07:21 30 MG Vancomycin HCl/ Sodium Chloride (Vancomycin Inj/ Nss 250ml) 272 ml @ 125 mls/hr Q24H IV 11/04/16 04:00 11/10/16 03:59 11/05/16 04:29 125 MLS/HR Multi-Ingredient Ointment (Eucerin Unscented Cr) 1 appln BID EXT 11/04/16 20:00 12/04/16 20:59 11/05/16 07:23 1 APPLN Laboratory Data Labs: Last 24 Hours Test 11/05/16 07:20 White Blood Count 13.07 K/uL Red Blood Count 3.93 M/uL Hemoglobin 10.7 g/dL Hematocrit 33.0 % Mean Corpuscular Volume 84.0 fL Mean Corpuscular Hemoglobin 27.2 pg Mean Corpuscular Hemoglobin Concent 32.4 g/dl Platelet Count 192 K/uL Mean Platelet Volume 9.2 fL Neutrophils (%) (Auto) 95.9 % Lymphocytes (%) (Auto) 2.3 % Monocytes (%) (Auto) 1.5 % Eosinophils (%) (Auto) 0.0 % Basophils (%) (Auto) 0.1 % Neutrophils # (Auto) 12.55 K/uL Lymphocytes # (Auto) 0.30 K/uL Monocytes # (Auto) 0.19 K/uL Eosinophils # (Auto) 0.00 K/uL Basophils # (Auto) 0.01 K/uL RDW Standard Deviation 52.1 fL RDW Coefficient of Variation 16.9 % Immature Granulocyte % (Auto) 0.2 % Immature Granulocyte # (Auto) 0.02 K/uL Prothrombin Time 47.8 SECONDS Prothromb Time International Ratio 4.2 Activated Partial Thromboplast Time 42.4 SECONDS Partial Thromboplastin Ratio 1.6 Sodium Level 136 mmol/L Potassium Level 3.8 mmol/L Chloride Level 99 mmol/L Carbon Dioxide Level 27 mmol/L Anion Gap 10.0 mmol/L Blood Urea Nitrogen 44 mg/dl Creatinine 1.60 mg/dl Est Creatinine Clear Calc Drug Dose 34.5 ml/min Estimated GFR () 43.9 Estimated GFR (Non- 37.9 BUN/Creatinine Ratio 27.7 Random Glucose 222 mg/dl Calcium Level 9.3 mg/dl Magnesium Level 2.3 mg/dl Assessment and Plan A 89 yo male comes with Influenza A bronchopneumonia, improved on Tamiflu 75 mg by mouth twice a day, Vancomycin IV per renal dosing, Zosyn 3.375 mg IV every 8 hours, levofloxacin 500 mg IV every 24 hours, Solu-Medrol 40 mg IV every 8 hours, guaifenesin extended release 600 mg by mouth twice a day, nasal cannula 2 L of oxygen titrating to keep pulse ox greater than or equal to 92%. BiPAP, tapered down to nasal cannula O2 as tolerated. CAD/hypertension, continue diltiazem CD 180 mg by mouth every morning, isosorbide mononitrate ER 30 mg by mouth every morning, and warfarin 5 mg by mouth 6 times per week excluding Mondays when he takes 2.5 mg. Myocardial demand ischemia, Troponin upon admission is 0.238, which is likely secondary to supply demand mismatch, cont telemetry unit for serial cardiac enzymes, Chronic diastolic CHF, stable echocardiogram with Dopplers. Normal left ventricular size with hyperdynamic systolic function. EF > 70%. No regional wall motion abnormalities. No left ventricular hypertrophy. Septal flattening during systole suggests elevated right ventricular systolic pressure. Ejection Fraction: 65-70% Moderate to severe pulmonary hypertension suggested with an estimated right ventricular systolic pressure of 58 mmHg. Hypercholesterolemia, continue atorvastatin 20 mg by mouth at bedtime. Acute Renal insufficiency on CKD stage 3, creatinine of 1.60 is slightly above his baseline, serial BMP BPH, continue tamsulosin 0.4 mg by mouth at bedtime and finasteride 5 mg by mouth at bedtime. GERD, continue ranitidine 150 mg by mouth daily. Continue gabapentin 100 mg by mouth daily. FULL Code Continued [facility] stay due to: abnormal vital signs, multiple IV medications needed
[2016-11-05 15:58] VITALS: BP 125/52; PULSE 159; TEMP 36.8; O2SAT 93
[2016-11-05] MEDS ORDERED: NURSING VERBAL MED ORDER ONE (16:45)
[2016-11-05] MEDS: WARFARIN SOD 5 MG TAB PO SCH (16:49)
[2016-11-05] MEDS: FINASTERIDE 5 MG TAB PO SCH (21:50)
[2016-11-05] MEDS: TAMSULOSIN HCL 0.4 MG CAP PO SCH (21:51)
[2016-11-05] MEDS: ATORVASTATIN 20 MG TAB PO SCH (21:52)
[2016-11-05 23:45] VITALS: BP 179/101; PULSE 102; TEMP 36.8; O2SAT 94
[2016-11-06] MEDS ORDERED: NURSING VERBAL MED ORDER ONE (00:30)
[2016-11-06] MEDS ORDERED: DILTIAZEM HCL 180 MG CAPCR PO STA (00:39)
[2016-11-06] MEDS ORDERED: VANCOMYCIN TROUGH SCH (03:30)
[2016-11-06 04:00] VITALS: BP 126/76; PULSE 111
[2016-11-06] MEDS: METHYLPREDNISOLONE IV 60 MG in SYRINGE 0 ML IV SCH ×4 (05:50→23:55)
[2016-11-06 07:58] VITALS: BP 164/84; PULSE 90; TEMP 36.5; O2SAT 91
[2016-11-06 08:00] VITALS: O2SAT 91
[2016-11-06] MEDS: EUCERIN CR 120 GM JAR EXT SCH ×2 (08:53→20:38)
[2016-11-06] MEDS: ISOSORBIDE MONONITRATE 30 MG TABCR PO SCH (08:55)
[2016-11-06] MEDS: DILTIAZEM HCL 180 MG CAPCR PO SCH (08:55)
[2016-11-06] MEDS: RANITIDINE HCL 150 MG TAB PO SCH (08:55)
[2016-11-06] MEDS: MAGNESIUM OXIDE 400 MG TAB PO SCH ×2 (08:55→20:39)
[2016-11-06] MEDS: GABAPENTIN 100 MG CAP PO SCH (08:56)
[2016-11-06] MEDS: DOCUSATE SODIUM 100 MG CAP PO SCH ×2 (08:56→20:38)
[2016-11-06] MEDS: GUAIFENESIN 200 MG TAB PO SCH ×2 (08:57→20:38)
[2016-11-06] MEDS: FUROSEMIDE 40 MG TAB PO SCH (08:57)
[2016-11-06] MEDS: OSELTAMIVIR PHOSPHATE SUSP 30 MG/5 ML UDP PO SCH ×2 (09:03→20:46)
--- NOTE | 2016-11-06 14:11 | Progress Note ---
Subjective Subjective Date of Service: Nov 06, 2016. Pt evaluation today including: conversation w/ patient, physical exam, chart review, review of studies, review of inpatient medication list Notes: feels better Problem List Medical Problems: (1) Atrial fibrillation with RVR Status: Acute (2) Elevated troponin Status: Acute (3) Heart failure Status: Acute (4) Influenza Status: Acute Review of Systems Constitutional: No fever Respiratory: + dyspnea on exertion, No cough Cardiac: No chest pain Abdomen: No pain Male : No dysuria Neurologic: No memory loss Psychiatric: No depression symptoms Physical Exam Vital Signs Vital Signs Past 24 Hours: Date Time Temp Pulse Resp B/P Pulse Ox O2 Delivery O2 Flow Rate FiO2 11/06/16 08:00 91 Nasal Cannula 3.0 11/06/16 07:58 36.5 90 22 164/84 91 Nasal Cannula 3.0 11/06/16 04:00 111 126/76 11/06/16 04:00 Nasal Cannula 3.0 11/06/16 00:01 Nasal Cannula 2.0 11/05/16 23:45 36.8 102 22 179/101 94 Nasal Cannula 2.0 11/05/16 16:20 Nasal Cannula 2.0 11/05/16 15:58 36.8 159 24 125/52 93 Nasal Cannula 3.5 Physical Exam: General Appearance: WD/WN, no apparent distress Eyes: bilateral eyes normal inspection ENT: hearing grossly normal, pharynx normal Neck: supple, no JVD Respiratory/Chest: chest non-tender, + wheezing Cardiovascular: no edema Abdomen: normal bowel sounds, no organomegaly Extremities: no pedal edema Neurologic/Psychiatric: normal mood/affect Skin: normal color Medications Medications: Current Inpatient Medications Medications (Trade) Dose Ordered Sig/Vickey Route Start Time Stop Time Status Last Admin Dose Admin Acetaminophen (Tylenol Tab) 650 mg Q4H PRN PO 11/02/16 23:30 12/02/16 23:29 11/03/16 04:42 650 MG Zolpidem Tartrate (Ambien Tab) 5 mg HSZ PRN PO 11/02/16 23:30 12/02/16 23:29 Nitroglycerin (Nitrostat Tab) 0.4 mg UD PRN SL 11/02/16 23:30 12/02/16 23:29 Atorvastatin Calcium (Lipitor Tab) 20 mg HS PO 11/03/16 21:00 12/03/16 20:59 11/05/16 21:52 20 MG Diltiazem HCl (Cardizem Cd Cap) 180 mg QAM PO 11/03/16 09:00 12/03/16 08:59 11/06/16 08:55 180 MG Docusate Sodium (coLACE CAP) 100 mg BID PO 11/03/16 09:00 12/03/16 08:59 11/06/16 08:56 100 MG Finasteride (Proscar Tab) 5 mg HS PO 11/03/16 21:00 12/03/16 20:59 11/05/16 21:50 5 MG Furosemide (Lasix Tab) 40 mg QAM PO 11/03/16 09:00 12/03/16 08:59 11/06/16 08:57 40 MG Gabapentin (Neurontin Cap) 100 mg DAILY PO 11/03/16 09:00 12/03/16 08:59 11/06/16 08:56 100 MG Hydrocortisone (Proctozone Hc 2.5% Crm) 1 appln BID PRN EXT 11/02/16 23:30 12/02/16 23:29 Isosorbide Mononitrate (Imdur Ext Rel Tab) 30 mg QAM PO 11/03/16 09:00 12/03/16 08:59 11/06/16 08:55 30 MG Magnesium Oxide (Mag-Ox Tab) 400 mg BID PO 11/03/16 09:00 12/03/16 08:59 11/06/16 08:55 400 MG Ranitidine HCl (zANTac TAB) 150 mg DAILY PO 11/03/16 09:00 12/03/16 08:59 11/06/16 08:55 150 MG Tamsulosin HCl (Flomax Cap) 0.4 mg HS PO 11/03/16 21:00 12/03/16 20:59 11/05/16 21:51 0.4 MG Tramadol HCl (Ultram Tab) 50 mg Q8H PRN PO 11/02/16 23:30 12/02/16 23:29 11/03/16 08:05 50 MG Warfarin Sodium (Coumadin Tab) 2.5 mg Mo@1600 PO 11/08/16 16:00 12/08/16 15:59 Warfarin Sodium 5 mg 5 mg SuTuWeThFrSa@1600 PO 11/03/16 16:00 12/03/16 15:59 Future Hold 11/04/16 16:09 5 MG Methylprednisolone Sodium Succinate/ Syringe (Solu-Medrol IV/ Syringe) 0.96 ml @ 1.5 mls/min Q6H IV 11/03/16 00:30 12/03/16 00:29 11/06/16 14:07 1.5 MLS/MIN Ondansetron HCl (Zofran Inj) 4 mg Q6H PRN IV 11/02/16 23:45 12/02/16 23:44 Guaifenesin (Organidin Nr Tab) 600 mg BID PO 11/03/16 09:00 12/03/16 08:59 11/06/16 08:57 600 MG Metoprolol Tartrate (Lopressor Iv) 2.5 mg Q4 PRN IV 11/02/16 23:45 12/02/16 23:44 Levofloxacin 1 ea 1 ea UD PRN N/A 11/03/16 00:30 12/03/16 00:29 Levofloxacin/Prmx (Levaquin / D5W/ Premixed D5W) 150 ml @ 100 mls/hr Q48H IV 11/04/16 22:00 11/10/16 21:59 11/04/16 22:27 100 MLS/HR Oseltamivir Phosphate (Tamiflu Susp) 30 mg BID PO 11/03/16 09:00 11/08/16 08:59 11/06/16 09:03 30 MG Multi-Ingredient Ointment (Eucerin Unscented Cr) 1 appln BID EXT 11/04/16 20:00 12/04/16 20:59 11/06/16 08:53 1 APPLN Assessment and Plan A 89 yo male comes with Influenza A bronchopneumonia, improved on Tamiflu 75 mg by mouth twice a day, Vancomycin IV per renal dosing, Zosyn 3.375 mg IV every 8 hours, levofloxacin 500 mg IV every 24 hours, Solu-Medrol 40 mg IV every 8 hours, guaifenesin extended release 600 mg by mouth twice a day, nasal cannula 2 L of oxygen titrating to keep pulse ox greater than or equal to 92%. BiPAP, tapered down to nasal cannula O2 as tolerated. CAD/hypertension, continue diltiazem CD 180 mg by mouth every morning, isosorbide mononitrate ER 30 mg by mouth every morning, and warfarin 5 mg by mouth 6 times per week excluding Mondays when he takes 2.5 mg. Myocardial demand ischemia, Troponin upon admission is 0.238, which is likely secondary to supply demand mismatch, cont telemetry unit for serial cardiac enzymes, Chronic diastolic CHF, stable echocardiogram with Dopplers. Normal left ventricular size with hyperdynamic systolic function. EF > 70%. No regional wall motion abnormalities. No left ventricular hypertrophy. Septal flattening during systole suggests elevated right ventricular systolic pressure. Ejection Fraction: 65-70% Moderate to severe pulmonary hypertension suggested with an estimated right ventricular systolic pressure of 58 mmHg. Hypercholesterolemia, continue atorvastatin 20 mg by mouth at bedtime. Acute Renal insufficiency on CKD stage 3, creatinine of 1.60 is slightly above his baseline, serial BMP BPH, continue tamsulosin 0.4 mg by mouth at bedtime and finasteride 5 mg by mouth at bedtime. GERD, continue ranitidine 150 mg by mouth daily. Continue gabapentin 100 mg by mouth daily. FULL Code hopefully d/c home tomorrow Continued [facility] stay due to: abnormal vital signs, multiple IV medications needed
[2016-11-06 15:28] VITALS: BP 138/85; PULSE 94; TEMP 36.6; O2SAT 94
[2016-11-06 16:00] VITALS: O2SAT 91
[2016-11-06] MEDS: ATORVASTATIN 20 MG TAB PO SCH (20:38)
[2016-11-06] MEDS: FINASTERIDE 5 MG TAB PO SCH (20:38)
[2016-11-06] MEDS: TAMSULOSIN HCL 0.4 MG CAP PO SCH (20:38)
[2016-11-06] MEDS: LEVOFLOXACIN 750MG / D5W IV SCH (20:39)
[2016-11-07 00:06] VITALS: BP 161/91; PULSE 98; TEMP 36.6; O2SAT 90
[2016-11-07] MEDS: METHYLPREDNISOLONE IV 60 MG in SYRINGE 0 ML IV SCH (06:09)
[2016-11-07 07:30] VITALS: BP 166/93; PULSE 102; TEMP 36.6; O2SAT 92
[2016-11-07 08:00] VITALS: O2SAT 92
[2016-11-07] MEDS: DILTIAZEM HCL 180 MG CAPCR PO SCH (08:00)
[2016-11-07] MEDS: EUCERIN CR 120 GM JAR EXT SCH ×2 (08:00→20:00)
[2016-11-07] MEDS: RANITIDINE HCL 150 MG TAB PO SCH (08:01)
[2016-11-07] MEDS: DOCUSATE SODIUM 100 MG CAP PO SCH ×2 (08:01→20:00)
[2016-11-07] MEDS: ISOSORBIDE MONONITRATE 30 MG TABCR PO SCH (08:01)
[2016-11-07] MEDS: MAGNESIUM OXIDE 400 MG TAB PO SCH ×2 (08:01→20:00)
[2016-11-07] MEDS: FUROSEMIDE 40 MG TAB PO SCH (08:02)
[2016-11-07] MEDS: GABAPENTIN 100 MG CAP PO SCH (08:02)
[2016-11-07] MEDS: GUAIFENESIN 200 MG TAB PO SCH ×2 (08:02→20:01)
[2016-11-07] MEDS: OSELTAMIVIR PHOSPHATE SUSP 30 MG/5 ML UDP PO SCH ×2 (08:05→20:01)
--- NOTE | 2016-11-07 11:09 | Progress Note ---
Subjective Subjective Date of Service: Nov 07, 2016. Pt evaluation today including: conversation w/ patient, physical exam, chart review, review of studies, review of inpatient medication list Notes: confusion improved Problem List Medical Problems: (1) Atrial fibrillation with RVR Status: Acute (2) Elevated troponin Status: Acute (3) Heart failure Status: Acute (4) Influenza Status: Acute Review of Systems Constitutional: No fever ENT: No hearing loss Respiratory: No cough Abdomen: No pain Male : No dysuria Neurologic: No memory loss Psychiatric: No depression symptoms Physical Exam Vital Signs Vital Signs Past 24 Hours: Date Time Temp Pulse Resp B/P Pulse Ox O2 Delivery O2 Flow Rate FiO2 11/07/16 08:00 92 Nasal Cannula 3.0 11/07/16 07:30 36.6 102 22 166/93 92 Nasal Cannula 3.0 11/07/16 00:06 36.6 98 18 161/91 90 Nasal Cannula 3.5 11/07/16 00:01 Nasal Cannula 3.0 11/06/16 20:00 Nasal Cannula 3.0 11/06/16 16:00 91 Nasal Cannula 3.0 11/06/16 15:28 36.6 94 20 138/85 94 Nasal Cannula 3.0 Physical Exam: General Appearance: WD/WN, no apparent distress Eyes: bilateral eyes normal inspection ENT: hearing grossly normal, pharynx normal Neck: supple, no JVD Respiratory/Chest: normal breath sounds Cardiovascular: regular rate, rhythm, no gallop, no murmur Abdomen: non tender, no pulsatile mass Extremities: normal inspection Neurologic/Psychiatric: alert, normal mood/affect, oriented x 3 Skin: normal color, no rash Medications Medications: Current Inpatient Medications Medications (Trade) Dose Ordered Sig/Vickey Route Start Time Stop Time Status Last Admin Dose Admin Acetaminophen (Tylenol Tab) 650 mg Q4H PRN PO 11/02/16 23:30 12/02/16 23:29 11/03/16 04:42 650 MG Zolpidem Tartrate (Ambien Tab) 5 mg HSZ PRN PO 11/02/16 23:30 12/02/16 23:29 Nitroglycerin (Nitrostat Tab) 0.4 mg UD PRN SL 11/02/16 23:30 12/02/16 23:29 Atorvastatin Calcium (Lipitor Tab) 20 mg HS PO 11/03/16 21:00 12/03/16 20:59 11/06/16 20:38 20 MG Diltiazem HCl (Cardizem Cd Cap) 180 mg QAM PO 11/03/16 09:00 12/03/16 08:59 11/07/16 08:00 180 MG Docusate Sodium (coLACE CAP) 100 mg BID PO 11/03/16 09:00 12/03/16 08:59 11/07/16 08:01 100 MG Finasteride (Proscar Tab) 5 mg HS PO 11/03/16 21:00 12/03/16 20:59 11/06/16 20:38 5 MG Furosemide (Lasix Tab) 40 mg QAM PO 11/03/16 09:00 12/03/16 08:59 11/07/16 08:02 40 MG Gabapentin (Neurontin Cap) 100 mg DAILY PO 11/03/16 09:00 12/03/16 08:59 11/07/16 08:02 100 MG Hydrocortisone (Proctozone Hc 2.5% Crm) 1 appln BID PRN EXT 11/02/16 23:30 12/02/16 23:29 Isosorbide Mononitrate (Imdur Ext Rel Tab) 30 mg QAM PO 11/03/16 09:00 12/03/16 08:59 11/07/16 08:01 30 MG Magnesium Oxide (Mag-Ox Tab) 400 mg BID PO 11/03/16 09:00 12/03/16 08:59 11/07/16 08:01 400 MG Ranitidine HCl (zANTac TAB) 150 mg DAILY PO 11/03/16 09:00 12/03/16 08:59 11/07/16 08:01 150 MG Tamsulosin HCl (Flomax Cap) 0.4 mg HS PO 11/03/16 21:00 12/03/16 20:59 11/06/16 20:38 0.4 MG Tramadol HCl (Ultram Tab) 50 mg Q8H PRN PO 11/02/16 23:30 12/02/16 23:29 11/03/16 08:05 50 MG Warfarin Sodium (Coumadin Tab) 2.5 mg Mo@1600 PO 11/08/16 16:00 12/08/16 15:59 Warfarin Sodium 5 mg 5 mg SuTuWeThFrSa@1600 PO 11/03/16 16:00 12/03/16 15:59 Future Hold 11/04/16 16:09 5 MG Methylprednisolone Sodium Succinate/ Syringe (Solu-Medrol IV/ Syringe) 0.96 ml @ 1.5 mls/min Q6H IV 11/03/16 00:30 12/03/16 00:29 11/07/16 06:09 1.5 MLS/MIN Ondansetron HCl (Zofran Inj) 4 mg Q6H PRN IV 11/02/16 23:45 12/02/16 23:44 Guaifenesin (Organidin Nr Tab) 600 mg BID PO 11/03/16 09:00 12/03/16 08:59 11/07/16 08:02 600 MG Metoprolol Tartrate (Lopressor Iv) 2.5 mg Q4 PRN IV 11/02/16 23:45 12/02/16 23:44 Levofloxacin 1 ea 1 ea UD PRN N/A 11/03/16 00:30 12/03/16 00:29 Levofloxacin/Prmx (Levaquin / D5W/ Premixed D5W) 150 ml @ 100 mls/hr Q48H IV 11/04/16 22:00 11/10/16 21:59 11/06/16 20:39 100 MLS/HR Oseltamivir Phosphate (Tamiflu Susp) 30 mg BID PO 11/03/16 09:00 11/08/16 08:59 11/07/16 08:05 30 MG Multi-Ingredient Ointment (Eucerin Unscented Cr) 1 appln BID EXT 11/04/16 20:00 12/04/16 20:59 11/07/16 08:00 1 APPLN Assessment and Plan A 89 yo male comes with Influenza A bronchopneumonia, improved on Tamiflu 75 mg by mouth twice a day, stopped Vancomycin IV per renal dosing, Zosyn 3.375 mg IV every 8 hours, continue levofloxacin 500 mg IV every 24 hours, decrease Solu-Medrol to 40 mg IV every 8 hours, guaifenesin extended release 600 mg by mouth twice a day, nasal cannula 2 L of oxygen titrating to keep pulse ox greater than or equal to 92%. BiPAP was tapered down to nasal cannula O2 as tolerated. acute toxic metabolic encephalopathy, sec to above, steroids, hospital settings etc, improved, tapering steroids down CAD/hypertension, continue diltiazem CD 180 mg by mouth every morning, isosorbide mononitrate ER 30 mg by mouth every morning, and warfarin 5 mg by mouth 6 times per week excluding Mondays when he takes 2.5 mg, on hold due to high INR, check INR now and in am Myocardial demand ischemia, Troponin upon admission is 0.238, which is likely secondary to supply demand mismatch, improved Chronic diastolic CHF, stable echocardiogram with Dopplers. Normal left ventricular size with hyperdynamic systolic function. EF > 70%. No regional wall motion abnormalities. No left ventricular hypertrophy. Septal flattening during systole suggests elevated right ventricular systolic pressure. Ejection Fraction: 65-70% Moderate to severe pulmonary hypertension suggested with an estimated right ventricular systolic pressure of 58 mmHg. Hypercholesterolemia, continue atorvastatin 20 mg by mouth at bedtime. Acute Renal insufficiency on CKD stage 3, creatinine of 1.60 is slightly above his baseline, serial BMP BPH, continue tamsulosin 0.4 mg by mouth at bedtime and finasteride 5 mg by mouth at bedtime. GERD, continue ranitidine 150 mg by mouth daily. Continue gabapentin 100 mg by mouth daily. FULL Code PT/OT eval, family updated Continued [facility] stay due to: abnormal vital signs, multiple IV medications needed
[2016-11-07 11:47] LABS: PROTHROMBIN TIME (PATIENT) 41.2 SECONDS (9.0-12.0)
[2016-11-07 11:48] LABS: INR 3.6 (0.9-1.1)
[2016-11-07] MEDS: METHYLPREDNISOLONE IV 40 MG in SYRINGE 0 ML IV SCH ×2 (14:03→22:33)
[2016-11-07 15:41] VITALS: BP 140/75; PULSE 88; TEMP 36.7; O2SAT 97
[2016-11-07 16:00] VITALS: O2SAT 97
[2016-11-07] MEDS: TAMSULOSIN HCL 0.4 MG CAP PO SCH (22:32)
[2016-11-07] MEDS: FINASTERIDE 5 MG TAB PO SCH (22:33)
[2016-11-07] MEDS: ATORVASTATIN 20 MG TAB PO SCH (22:33)
[2016-11-08] VITALS: O2SAT 94
[2016-11-08 00:19] VITALS: BP 183/126; PULSE 109; TEMP 36.4; O2SAT 94
[2016-11-08] MEDS ORDERED: HydrALAZINE HCL 20 MG/ML VIAL IV. PRN (04:15)
[2016-11-08] MEDS: METHYLPREDNISOLONE IV 40 MG in SYRINGE 0 ML IV SCH ×2 (06:30→13:46)
[2016-11-08 06:41] LABS: COMPLETE YES; HEMATOCRIT 32.6 % (42-52); IG% 0.2 %; LYMPH % 5.5 %; LYMPH ABS # 0.46 K/uL (1.2-3.4); MEAN CELL VOLUME 81.7 fL (80-100); MEAN CORPUSCULAR HEMOGLOBIN 26.8 pg (25-34); MEAN CORPUSCULAR HGB CONC 32.8 g/dl (32-36); MEAN PLATELET VOLUME 9.5 fL (7.4-10.4); MONO % 1.1 %; NEUT % 93.2 %; PLATELET COUNT 106 K/uL (130-400); RED BLOOD COUNT 3.99 M/uL (4.7-6.1); WHITE BLOOD COUNT 8.37 K/uL (4.8-10.8)
[2016-11-08 06:59] LABS: INR 2.9 (0.9-1.1); PROTHROMBIN TIME (PATIENT) 32.3 SECONDS (9.0-12.0)
[2016-11-08 07:20] LABS: BUN/CREATININE RATIO 31.7 (10-20); CREATININE 1.4 mg/dl (0.60-1.40); POTASSIUM 3.5 mmol/L (3.5-5.1)
[2016-11-08 07:29] VITALS: BP 167/90; PULSE 102; TEMP 36.5; O2SAT 98
[2016-11-08] MEDS: DOCUSATE SODIUM 100 MG CAP PO SCH ×2 (07:39→21:48)
[2016-11-08] MEDS: MAGNESIUM OXIDE 400 MG TAB PO SCH ×2 (07:39→21:48)
[2016-11-08] MEDS: DILTIAZEM HCL 180 MG CAPCR PO SCH (07:39)
[2016-11-08] MEDS: RANITIDINE HCL 150 MG TAB PO SCH (07:40)
[2016-11-08] MEDS: ISOSORBIDE MONONITRATE 30 MG TABCR PO SCH (07:40)
[2016-11-08] MEDS: EUCERIN CR 120 GM JAR EXT SCH ×2 (07:40→21:47)
[2016-11-08] MEDS: GABAPENTIN 100 MG CAP PO SCH (07:41)
[2016-11-08] MEDS: GUAIFENESIN 200 MG TAB PO SCH ×2 (07:42→21:49)
[2016-11-08] MEDS: FUROSEMIDE 40 MG TAB PO SCH (07:42)
[2016-11-08] MEDS: OSELTAMIVIR PHOSPHATE SUSP 30 MG/5 ML UDP PO SCH (07:44)
[2016-11-08 07:46] LABS: BETA-HYDROXYBUTYRATE 0.99 mg/dL (0.2-2.81)
[2016-11-08 08:00] VITALS: O2SAT 98
[2016-11-08] MEDS ORDERED: PHARMACY GLYCEMIC MGMT CONSULT PRN (08:09)
[2016-11-08] MEDS ORDERED: LANTUS PER UNIT CHARGE SQ SCH (09:00)
[2016-11-08] MEDS: INSULIN ASPART 100 UNITS/ML 3 ML PEN SC SCH ×4 (09:22→21:54)
[2016-11-08 09:58] LABS: ESTIMATED AVERAGE GLUCOSE 151 mg/dl; HA1C FLAG Normal (Normal)
[2016-11-08 10:18] VITALS: BP 154/77; PULSE 106; O2SAT 89
--- NOTE | 2016-11-08 11:11 | Pharmacy Progress Note ---
Glycemic Control Intl Consult Date of Service Nov 08, 2016. Scope Glycemic Pharmacist consulted by Dr Nicole on 11/08/16 for glycemic control and to write orders per [facility] inpatient glycemic control protocol Objective Weight (Kilograms): 76.400 Accuchecks BSG (last 24hrs): Test 11/08/16 06:10 11/08/16 07:54 Random Glucose 416 mg/dl (70-99) Bedside Glucose 403 mg/dl (70-99) Laboratory Data (last 24hrs) Test 11/08/16 06:10 Anion Gap 5.0 mmol/L BUN/Creatinine Ratio 31.7 Blood Urea Nitrogen 44 mg/dl Creatinine 1.40 mg/dl Hemoglobin A1c 6.9 % Potassium Level 3.5 mmol/L Sodium Level 138 mmol/L White Blood Count 8.37 K/uL Red Blood Count 3.99 M/uL Hemoglobin 10.7 g/dL Hematocrit 32.6 % Mean Corpuscular Volume 81.7 fL Mean Corpuscular Hemoglobin 26.8 pg Mean Corpuscular Hemoglobin Concent 32.8 g/dl Platelet Count 106 K/uL Mean Platelet Volume 9.5 fL Neutrophils (%) (Auto) 93.2 % Lymphocytes (%) (Auto) 5.5 % Monocytes (%) (Auto) 1.1 % Eosinophils (%) (Auto) 0.0 % Basophils (%) (Auto) 0.0 % Neutrophils # (Auto) 7.80 K/uL Lymphocytes # (Auto) 0.46 K/uL Monocytes # (Auto) 0.09 K/uL Eosinophils # (Auto) 0.00 K/uL Basophils # (Auto) 0.00 K/uL HbA1c Test 11/08/16 06:10 Hemoglobin A1c 6.9 % (4.5-5.6) H Recent Pertinent Medications Outpatient Anti-diabetic Regimen: * n/a * A1c = 6.9 % 10/2016 Risk Factors for Insulin Resistance: * Steroids: Solu-Medrol 60mg IV every 6 hours --> Solu-Medrol 40mg IV every 8 hours * Infection: pneumonia/influenza A - day #6 of levofloxacin IV and day #5 of oseltamivir * Diet: AHA/Renal Assessment & Plan ASSESSMENT: * ADA & AACE recommend a goal blood sugar range 140-180 mg/dl for the majority of critically ill & non-critically ill patients. However, more stringent targets may be selected in individual cases. 11/08/16 * 89y/o male admitted with influenza A and being treated with antibiotics, antivirals, and around the clock steroids now with steroid induced hyperglycemia. * No historical diagnosis or medications for diabetes, however recent A1c may be diagnostic? * Currently, BSG >400mg/dL. No insulin ordered. * begin basal/bolus insulin in an insulin naive patient. - Use weight based calculator for NovoLog parameters and follow ADA recommendations for goal range - Use slightly lower than weight based dose for basal insulin since Mr. Dumont is insulin naive. * if steroids are continue and BSGs are not controlled with aggressive SQ insulin doses, may need to consider IV insulin drip acutely * A1c is current from today * add to discharge instructions * may benefit from CDE consult and/or diet modification at discharge? PLAN FOR INPATIENT GLYCEMIC CONTROL: * Lantus 10 units SQ x1 dose now * re-dose PRN per consult/BSG * NovoLog AC and HS * may consider overnight Accu-checks if BSG at lunch is again elevated * Correction factor: 30mg/dL/unit * Carb ratio: 1 unit per 10g of CHO consumed * Goal range: 140-180mg/dL * A1c - added to discharge instructions * Change diet from AHA/Renal --> AHA/Renal/T2DM * Please note that the plan above was derived based on current level of insulin resistance and hospital stress. These recommendations are appropriate for inpatient admission only. Plan of care upon discharge will need to be reassessed to avoid potential outpatient hypo/hyperglycemia. Thank you.
[2016-11-08] MEDS ORDERED: INSULIN REGULAR 5 UNITS in SYRINGE 4.95 ML IV SCH (13:30)
[2016-11-08 13:39] VITALS: BMI 22.8
--- NOTE | 2016-11-08 15:24 | Hospitalist Progress Note ---
Hospitalist Progress Note Date of Service Nov 08, 2016. Subjective Pt evaluation today including: conversation w/ patient, physical exam, chart review, lab review, review of studies, review of inpatient medication list Patient had episode of confusion overnight blood sugar this am on BMP is 400's Constitutional: No fever Eyes: No worsening of vision ENT: No hearing loss, No nasal symptoms Respiratory: No cough, No shortness of breath, No wheezing Cardiovascular: No chest pain Abdomen: No constipation, No pain, No vomiting Musculoskeletal: No joint pain Male : No dysuria Neurologic: No memory loss Psychiatric: No depression symptoms Endo: No fatigue Skin: No rash Medications Current Inpatient Medications Medications (Trade) Dose Ordered Sig/Vickey Route Start Time Stop Time Status Last Admin Dose Admin Acetaminophen (Tylenol Tab) 650 mg Q4H PRN PO 11/02/16 23:30 12/02/16 23:29 11/03/16 04:42 650 MG Zolpidem Tartrate (Ambien Tab) 5 mg HSZ PRN PO 11/02/16 23:30 12/02/16 23:29 Nitroglycerin (Nitrostat Tab) 0.4 mg UD PRN SL 11/02/16 23:30 12/02/16 23:29 Atorvastatin Calcium (Lipitor Tab) 20 mg HS PO 11/03/16 21:00 12/03/16 20:59 11/07/16 22:33 20 MG Diltiazem HCl (Cardizem Cd Cap) 180 mg QAM PO 11/03/16 09:00 12/03/16 08:59 11/08/16 07:39 180 MG Docusate Sodium (coLACE CAP) 100 mg BID PO 11/03/16 09:00 12/03/16 08:59 11/08/16 07:39 100 MG Finasteride (Proscar Tab) 5 mg HS PO 11/03/16 21:00 12/03/16 20:59 11/07/16 22:33 5 MG Furosemide (Lasix Tab) 40 mg QAM PO 11/03/16 09:00 12/03/16 08:59 11/08/16 07:42 40 MG Gabapentin (Neurontin Cap) 100 mg DAILY PO 11/03/16 09:00 12/03/16 08:59 11/08/16 07:41 100 MG Hydrocortisone (Proctozone Hc 2.5% Crm) 1 appln BID PRN EXT 11/02/16 23:30 12/02/16 23:29 Isosorbide Mononitrate (Imdur Ext Rel Tab) 30 mg QAM PO 11/03/16 09:00 12/03/16 08:59 11/08/16 07:40 30 MG Magnesium Oxide (Mag-Ox Tab) 400 mg BID PO 11/03/16 09:00 12/03/16 08:59 11/08/16 07:39 400 MG Ranitidine HCl (zANTac TAB) 150 mg DAILY PO 11/03/16 09:00 12/03/16 08:59 11/08/16 07:40 150 MG Tamsulosin HCl (Flomax Cap) 0.4 mg HS PO 11/03/16 21:00 12/03/16 20:59 11/07/16 22:32 0.4 MG Tramadol HCl (Ultram Tab) 50 mg Q8H PRN PO 11/02/16 23:30 12/02/16 23:29 11/03/16 08:05 50 MG Warfarin Sodium (Coumadin Tab) 2.5 mg Mo@1600 PO 11/08/16 16:00 12/08/16 15:59 Future Hold Warfarin Sodium (Coumadin Tab) 5 mg SuTuWeThFrSa@1600 PO 11/03/16 16:00 12/03/16 15:59 Future Hold 11/04/16 16:09 5 MG Ondansetron HCl (Zofran Inj) 4 mg Q6H PRN IV 11/02/16 23:45 12/02/16 23:44 Guaifenesin (Organidin Nr Tab) 600 mg BID PO 11/03/16 09:00 12/03/16 08:59 11/08/16 07:42 600 MG Metoprolol Tartrate (Lopressor Iv) 2.5 mg Q4 PRN IV 11/02/16 23:45 12/02/16 23:44 Levofloxacin 1 ea 1 ea UD PRN N/A 11/03/16 00:30 12/03/16 00:29 Levofloxacin/Prmx (Levaquin / D5W/ Premixed D5W) 150 ml @ 100 mls/hr Q48H IV 11/04/16 22:00 11/10/16 21:59 11/06/16 20:39 100 MLS/HR Multi-Ingredient Ointment 1 appln 1 appln BID EXT 11/04/16 20:00 12/04/16 20:59 11/08/16 07:40 1 APPLN Methylprednisolone Sodium Succinate/ Syringe (Solu-Medrol IV/ Syringe) 0.64 ml @ 1.5 mls/min Q8H IV 11/07/16 14:30 12/07/16 14:29 11/08/16 13:46 1.5 MLS/MIN Hydralazine HCl (HydrALAZINE INJ) 10 mg Q6H PRN IV. 11/08/16 04:15 12/08/16 04:14 Insulin Aspart (novoLOG ASPART) SLIDING SCALE G... ACHS SC 11/08/16 09:00 12/08/16 08:59 11/08/16 13:45 13 UNITS Miscellaneous Information (Consult Glycemic Management Pharmacy) 1 ea UD PRN N/A 11/08/16 08:09 12/08/16 08:08 Insulin Aspart (novoLOG ASPART) SLIDING SCALE G... 0000,0400 SC 11/09/16 00:00 12/09/16 00:00 Insulin Glargine (Lantus Solostar Pen) 10 unit BID SC 11/08/16 20:00 12/08/16 19:59 Objective Vital Signs Date Time Temp Pulse Resp B/P Pulse Ox O2 Delivery O2 Flow Rate FiO2 11/08/16 10:18 106 89 11/08/16 08:00 98 Nasal Cannula 3.0 11/08/16 07:29 36.5 102 22 167/90 98 Nasal Cannula 3.0 11/08/16 00:19 36.4 109 20 183/126 94 Nasal Cannula 3.0 11/08/16 00:00 94 Nasal Cannula 3.0 35 11/07/16 16:00 97 Nasal Cannula 3.0 11/07/16 15:41 36.7 88 20 140/75 97 Nasal Cannula 3.0 Physical Exam General Appearance: WD/WN, no apparent distress Eyes: normal inspection ENT: normal ENT inspection Neck: supple Respiratory/Chest: chest non-tender, lungs clear Cardiovascular: regular rate, rhythm, no edema Abdomen: normal bowel sounds, non tender, soft Extremities: normal range of motion, non-tender 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, no motor/sensory deficits, alert, oriented x 3 Skin: normal color, warm/dry, no rash Lymphatic: no adenopathy Laboratory Results Last 24 Hours Test 11/08/16 06:10 11/08/16 07:54 11/08/16 11:41 White Blood Count 8.37 K/uL Red Blood Count 3.99 M/uL Hemoglobin 10.7 g/dL Hematocrit 32.6 % Mean Corpuscular Volume 81.7 fL Mean Corpuscular Hemoglobin 26.8 pg Mean Corpuscular Hemoglobin Concent 32.8 g/dl Platelet Count 106 K/uL Mean Platelet Volume 9.5 fL Neutrophils (%) (Auto) 93.2 % Lymphocytes (%) (Auto) 5.5 % Monocytes (%) (Auto) 1.1 % Eosinophils (%) (Auto) 0.0 % Basophils (%) (Auto) 0.0 % Neutrophils # (Auto) 7.80 K/uL Lymphocytes # (Auto) 0.46 K/uL Monocytes # (Auto) 0.09 K/uL Eosinophils # (Auto) 0.00 K/uL Basophils # (Auto) 0.00 K/uL RDW Standard Deviation 49.7 fL RDW Coefficient of Variation 16.5 % Immature Granulocyte % (Auto) 0.2 % Immature Granulocyte # (Auto) 0.02 K/uL Prothrombin Time 32.3 SECONDS Prothromb Time International Ratio 2.9 Sodium Level 138 mmol/L Potassium Level 3.5 mmol/L Chloride Level 98 mmol/L Carbon Dioxide Level 35 mmol/L Anion Gap 5.0 mmol/L Blood Urea Nitrogen 44 mg/dl Creatinine 1.40 mg/dl Est Creatinine Clear Calc Drug Dose 39.4 ml/min Estimated GFR () 51.6 Estimated GFR (Non- 44.5 BUN/Creatinine Ratio 31.7 Random Glucose 416 mg/dl Estimated Average Glucose 151 mg/dl Hemoglobin A1c 6.9 % Calcium Level 9.0 mg/dl Beta-Hydroxybutyric Acid 0.99 mg/dL Bedside Glucose 403 mg/dl 404 mg/dl Assessment and Plan A 89 yo male comes with Influenza A bronchopneumonia -improved -completed Tamiflu 75 mg by mouth twice a day -decrease Solu-Medrol to 40 mg IV every 12 hours, -guaifenesin extended release 600 mg by mouth twice a day, -levaquin day #01/16 Acute toxic metabolic encephalopathy -suspect 2/2 steroids, hyperglycemia hospital settings etc, - improved with treatment of blood glucose and decrease steroids Hyperglycemia - suspect exacerbated by steroids - check A1c, 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 GERD -continue ranitidine 150 mg by mouth daily. FULL Code Disposition - home tommorrow
[2016-11-08 16:00] VITALS: BP 156/90; PULSE 91; TEMP 36.4; O2SAT 98
[2016-11-08] MEDS ORDERED: WARFARIN SOD 2.5 MG TAB PO SCH (16:00)
[2016-11-08] MEDS: INSULIN GLARGINE SOLOSTAR 100 UNITS/ML 3 ML PEN SC SCH (21:51)
[2016-11-08] MEDS: LEVOFLOXACIN 750MG / D5W IV SCH (21:54)
[2016-11-08] MEDS: TAMSULOSIN HCL 0.4 MG CAP PO SCH (21:54)
[2016-11-08] MEDS: FINASTERIDE 5 MG TAB PO SCH (21:55)
[2016-11-08] MEDS: ATORVASTATIN 20 MG TAB PO SCH (21:55)
[2016-11-09] VITALS: BP 158/87; PULSE 91; TEMP 36.7; O2SAT 92
[2016-11-09] MEDS: METHYLPREDNISOLONE IV 40 MG in SYRINGE 0 ML IV SCH ×2 (01:12→14:00)
[2016-11-09] MEDS: INSULIN ASPART 100 UNITS/ML 3 ML PEN SC SCH ×5 (01:13→16:30)
[2016-11-09 07:49] VITALS: BP 165/97; PULSE 103; TEMP 36.7; O2SAT 96
[2016-11-09] MEDS: MAGNESIUM OXIDE 400 MG TAB PO SCH (08:45)
[2016-11-09] MEDS: DILTIAZEM HCL 180 MG CAPCR PO SCH (08:45)
[2016-11-09] MEDS: GABAPENTIN 100 MG CAP PO SCH (08:45)
[2016-11-09] MEDS: DOCUSATE SODIUM 100 MG CAP PO SCH (08:46)
[2016-11-09] MEDS: GUAIFENESIN 200 MG TAB PO SCH (08:46)
[2016-11-09] MEDS: RANITIDINE HCL 150 MG TAB PO SCH (08:46)
[2016-11-09] MEDS: FUROSEMIDE 40 MG TAB PO SCH (08:46)
[2016-11-09] MEDS: ISOSORBIDE MONONITRATE 30 MG TABCR PO SCH (08:46)
[2016-11-09] MEDS: EUCERIN CR 120 GM JAR EXT SCH (08:47)
[2016-11-09] MEDS: INSULIN GLARGINE SOLOSTAR 100 UNITS/ML 3 ML PEN SC SCH (08:54)
--- NOTE | 2016-11-09 11:32 | Pharmacy Progress Note ---
Glycemic Control: Progress Nt Date of Service Nov 09, 2016. Scope Glycemic Pharmacist consulted by Dr Nicole on 11/08/16 for glycemic control and to write orders per [facility] inpatient glycemic control protocol. Objective Accuchecks BSG (last 24hrs): Test 11/08/16 11:41 11/08/16 16:37 11/08/16 19:59 11/09/16 01:04 Bedside Glucose 404 mg/dl (70-99) 250 mg/dl (70-99) 287 mg/dl (70-99) 215 mg/dl (70-99) Test 11/09/16 04:30 11/09/16 08:05 Bedside Glucose 152 mg/dl (70-99) 186 mg/dl (70-99) HbA1c: Test 11/08/16 06:10 Hemoglobin A1c 6.9 % (4.5-5.6) H Recent Pertinent Medications Outpatient Anti-diabetic Regimen: * n/a * A1c = 6.9 % 10/2016 Risk Factors for Insulin Resistance: * Steroids: Solu-Medrol 60mg IV every 6 hours --> Solu-Medrol 40mg IV every 8 hours--> Solu-Medrol 40mg IV q12H * Infection: pneumonia/influenza A - day #7 of levofloxacin IV and completed oseltamivir * Diet: AHA/Renal Assessment & Plan ASSESSMENT: * ADA & AACE recommend a goal blood sugar range 140-180 mg/dl for the majority of critically ill & non-critically ill patients. However, more stringent targets may be selected in individual cases. 11/08/16 * 89y/o male admitted with influenza A and being treated with antibiotics, antivirals, and around the clock steroids now with steroid induced hyperglycemia. * No historical diagnosis or medications for diabetes, however recent A1c may be diagnostic? * Currently, BSG >400mg/dL. No insulin ordered. * begin basal/bolus insulin in an insulin naive patient. - Use weight based calculator for NovoLog parameters and follow ADA recommendations for goal range - Use slightly lower than weight based dose for basal insulin since Mr. Dumont is insulin naive. * if steroids are continue and BSGs are not controlled with aggressive SQ insulin doses, may need to consider IV insulin drip acutely * A1c is current from today * add to discharge instructions * may benefit from CDE consult and/or diet modification at discharge? 11/09/16 * BSGs very elevated yesterday came down nicely after bolus IV and SQ insulin doses * Today, BSG in AM 186mg/dL is much improved from >400mg/dL * Hopeful for discharge soon and Dr. Nicole has requested discharge recommendations * see CDE note for moth exterminator recommendations * d/c with steroids so will need insulin short term PLAN FOR INPATIENT GLYCEMIC CONTROL: * Lantus 10 units SQ BID * NovoLog AC and HS * Correction factor: 30mg/dL/unit * Carb ratio: 1 unit per 10g of CHO consumed * Goal range: 140-180mg/dL * A1c - added to discharge instructions DISCHARGE RECOMMENDATIONS: * Follow up with outpatient provider for jail management of ?diabetes (A1c 6.9%) * Plan for discharge with steroids * sliding scale insulin per provider while patient is on steroids * NovoLog - check BSGs 4x/day - 110-150mg/dL - give 0 units - 151-170mg/dL - give 1 unit - 171-190mg/dL - give 2 units - 191-210mg/dL - give 3 units - 211-230mg/dL - give 4 units - 231-250mg/dL - give 5 units * Please note that the plan above was derived based on current level of insulin resistance and hospital stress. These recommendations are appropriate for inpatient admission only. Plan of care upon discharge will need to be reassessed to avoid potential outpatient hypo/hyperglycemia. Thank you.
[2016-11-09] MEDS ORDERED: INSDGIPEN SC (14:07)
[2016-11-09] MEDS ORDERED: NVLGIPEN SC (14:07)
[2016-11-09] MEDS ORDERED: GUAI1TAB68 PO (14:07)
[2016-11-09] MEDS ORDERED: LEVO1TAB35 PO (14:07)
[2016-11-09] MEDS ORDERED: PRD50 PO (14:07)
--- NOTE | 2016-11-09 14:08 | Discharge Instructions ---
Discharge Instructions Admission Admission Date: Nov 02, 2016 at 23:30 Admission Diagnosis: Hypoxia, Influenza A. Discharge Care Plan - Problem: Medical Problems: (1) Atrial fibrillation with RVR (2) Elevated troponin (3) Heart failure (4) Influenza Care Plan - Goal(s): Decrease discomfort, Improve function Care Plan - Instructions: Activity Recommendations: no limitations Recommended Home Diet: Type 2 Diabetes AHA Provider Instructions: Follow up with your PCP in 1 week Please check your blood sugars 4 times daily. Please record the values and take them with your to your PCP appointment VTE Core Measure Inpt VTE Proph given/why not?: SCD's Laboratory Results Test Results: Hemoglobin A1c Test 11/08/16 06:10 Range/Units Estimated Average Glucose 151 mg/dl Hemoglobin A1c 6.9 H 4.5-5.6 % Chavez Barnes Recommendations: Call your doctor if: * Temperature above 101 degrees * Pain not relieved by pain medicine ordered * There is increased drainage or redness from any incision * You have any unanswered questions or concerns. Your Doctors Instructions noted above were prepared by provider Ruby Nicole.
[2016-11-09 14:25] VITALS: Ht 182.9 cm; Wt 76.4 kg
[2016-11-09 14:28] VITALS: O2SAT 87
[2016-11-09 15:35] VITALS: BP 118/72; PULSE 91; TEMP 36.4; O2SAT 90
[2016-11-09 16:00] VITALS: O2SAT 97
--- NOTE | 2016-11-10 08:06 | Discharge Summary ---
Discharge Summary Date of Service Nov 10, 2016. Discharge Summary Admission Date: Nov 02, 2016 at 23:30 Discharge Date: Nov 09, 2016 Discharge Disposition: Home Principal Diagnosis: Influenza/Bronchopneumonia/Pre-Diabetes Immunizations: Have You Had Influenza Vaccine: Unknown History of Tetanus Vaccine?: Unknown History of Pneumococcal: Yes Pneumococcal Date: Oct 30, 2011 History of Hepatitis B Vaccine: No Medication Reconciliation New Medications: Levofloxacin (Levaquin) 750 Mg Tab 750 MG PO DAILY, #3 TAB Prednisone (Prednisone) 50 Mg Tab 50 MG PO DAILY, #5 Guaifenesin (Organ-I Nr) 200 Mg Tab 600 MG PO BID for 30 Days, #30 TAB Insulin Aspart (Novolog Flexpen) 100 Units/Ml Inj 0 UNITS SC ACHS for 30 Days NovoLog - 110-150mg/dL - give 0 units - 151-170mg/dL - give 1 unit - 171-190mg/dL - give 2 units - 191-210mg/dL - give 3 units - 211-230mg/dL - give 4 units - 231-250mg/dL - give 5 units Insulin Glargine (Lantus Solostar) 100 Unit/Ml Inj 10 UNIT SC BID for 30 Days Continued Medications: Atorvastatin (Atorvastatin Calcium) 20 Mg Tab 20 MG PO HS, #30 Diltiazem Hcl Coated Beads (Diltiazem Cd) 180 Mg Cap 180 MG PO QAM, #90 Docusate Sodium (Docusate Sodium) 100 Mg Cap 100 MG PO BID for 30 Days, CAP 3 Refills Finasteride (Finasteride) 5 Mg Tab 5 MG PO HS, #90 Furosemide (Furosemide) 40 Mg Tab 40 MG PO QAM, #30 Gabapentin (Neurontin) 100 Mg Cap 100 MG PO DAILY, CAP Hydrocortisone (Proctosol Hc) 90 Appln/30 Gm Cr 1 APPLN EXT BID PRN for Hemorrhoids for 30 Days Isosorbide Mononitrate (Isosorbide Mononitrate ER) 30 Mg Tabcr 30 MG PO QAM, #90 Magnesium Oxide (Mag-Ox) 400 Mg Tab 400 MG PO BID, TAB Ranitidine (Zantac) 150 Mg Tab 150 MG PO DAILY, TAB Tamsulosin HCl (Tamsulosin HCl) 0.4 Mg Cap 0.4 MG PO HS Tramadol (Ultram) 50 Mg Tab 50 MG PO Q8H PRN for Pain, TAB Warfarin Sod (Jantoven) 2.5 Mg Tab 2.5 MG PO MONDAYS, TAB Warfarin Sod (Jantoven) 5 Mg Tab 5 MG PO 6XWK, TAB EXCEPT TUESDAY Discharge Exam Review of Systems: Constitutional: No chills Eyes: No worsening of vision ENT: No hearing loss Respiratory: No sputum Cardiovascular: No chest pain, No orthopnea Abdomen: No nausea, No pain Genitourinary - Male: No hematuria Neurologic: No memory loss Psychiatric: No depression symptoms Endocrine: No fatigue Physical Exam: General Appearance: WD/WN, no apparent distress Eyes: normal inspection ENT: normal ENT inspection, hearing grossly normal Neck: supple, no adenopathy Respiratory/Chest: chest non-tender Cardiovascular: regular rate, rhythm, no edema Abdomen / GI: normal bowel sounds, non tender, soft Extremities: normal inspection 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, no motor/sensory deficits , alert Skin: normal color, warm/dry, no rash Hospital Course A 89 yo male comes with shortness breath Influenza A /bronchopneumonia -improved -completed Tamiflu 75 mg by mouth twice a day for 5 days -started on IC solumedrol then switched to prednisone on discharged -guaifenesin extended release 600 mg by mouth twice a day, -levaquin day #02/19 completed during hospital stay Acute toxic metabolic encephalopathy -suspect 2/2 steroids, hyperglycemia hospital settings etc, - improved with treatment of blood glucose and decrease steroids Pre-Diabetes - suspect exacerbated by steroids - A1c 6.8 - start sliding scale insulin and lantus/patient counsled on diabetes and discharged home on insulin. Patient was given lantus and novolog pen with needles on discharge, instructed to folow up with PCP CAD/hypertension -continue diltiazem , isosorbide mononitrate, warfarin Type II UT - suspect 2/2 to acute illness Chronic diastolic CHF - euvolemic Hypercholesterolemia -continue atorvastatin 20 mg by mouth at bedtime. 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 GERD -continue ranitidine 150 mg by mouth daily. Chronic hypoxic Respiratory failure - at baseline 2L O2 prn FULL Code Disposition - home tommorrow Total Time Spent: Greater than 30 minutes This includes examination of the patient, discharge planning, medication reconciliation, and communication with other providers. Discharge Instructions Please refer to the electronic Patient Visit Report (Discharge Instructions) for additional information.
== END 2016-11-09 19:45 | disposition home health service (06) | DRG 193 ==
LOC: ENRESERVTM → ENRESERVDT → ENRESERV → C.EDB 19:01 → C.EDINP 23:30 → C.2T 11-03 11:58 → C.MS4W 11-04 13:05
PROVIDERS: ADMIT Hospitalist; ATTEND Hospitalist
DX: J11.08 Influenza due to unidentified influenza virus with specified pneumonia (principal); G92 Toxic encephalopathy; J96.11 Chronic respiratory failure with hypoxia; I50.32 Chronic diastolic (congestive) heart failure; I24.8 Other forms of acute ischemic heart disease; I13.0 Hypertensive heart and chronic kidney disease with heart failure and stage 1 through stage 4 chronic kidney disease, or unspecified chronic kidney disease; N18.3 Chronic kidney disease, stage 3 (moderate); N28.9 Disorder of kidney and ureter, unspecified; N40.0 Benign prostatic hyperplasia without lower urinary tract symptoms; E78.00 Pure hypercholesterolemia, unspecified; E11.65 Type 2 diabetes mellitus with hyperglycemia; K21.9 Gastro-esophageal reflux disease without esophagitis; E11.22 Type 2 diabetes mellitus with diabetic chronic kidney disease; I48.91 Unspecified atrial fibrillation; R79.89 Other specified abnormal findings of blood chemistry; I25.10 Atherosclerotic heart disease of native coronary artery without angina pectoris; J18.0 Bronchopneumonia, unspecified organism; T38.0X5A Adverse effect of glucocorticoids and synthetic analogues, initial encounter; Y92.230 Patient room in hospital as the place of occurrence of the external cause; Z79.01 Long term (current) use of anticoagulants; Z79.899 Other long term (current) drug therapy; Z79.891 Long term (current) use of opiate analgesic

== ENCOUNTER 2016-11-27 20:37 | Inpatient (IN) | payer OTHER, MEDICARE ==
[~2016-11-27] VITALS: Ht 182.9 cm; Wt 76.0 kg
[~2016-11-27 20:37] MED LIST changes: -CMD5 PO; -DILT120C68 PO; +DILT180C96 PO; +GUAI1TAB68 PO; +INSDGIPEN SC; +ISOS-11 PO; +LEVO1TAB35 PO; +LPT/20 PO; -LSX20 PO; +LSX40 PO; +MAGN400T6 PO; +NVLGIPEN SC; +PRD50 PO; +PRS5 PO; -TRIATAB3 PO; +WARF2.5T8 PO; +WARF5TAB7 PO
[2016-11-27] MEDS ORDERED: TAMS0.4C38 PO (22:31)
[2016-11-27] MEDS ORDERED: METO25TA3 PO (22:33)
[2016-11-27] MEDS ORDERED: LACT10SO17 OR (22:45)
[2016-11-27] MEDS ORDERED: ZNTT/150 PO (22:45)
[2016-11-27] MEDS ORDERED: IPRASOL4 INH (22:45)
[2016-11-27 23:06] VITALS: BP 136/72; PULSE 83; TEMP 36.6; O2SAT 92; Ht 182.9 cm; Wt 76.0 kg
[2016-11-27] MEDS ORDERED: ALUMINUM/MAGNESIUM/SIMETH (MAALOX MAX) 30 ML UDC PO PRN (23:30)
[2016-11-27] MEDS ORDERED: ALBUTEROL 0.083% NEBU SOLN 3 ML VIAL INH PRN (23:30)
[2016-11-27] MEDS ORDERED: MAGNESIUM HYDROXIDE SUSP 30 ML UDC PO PRN (23:30)
[2016-11-27] MEDS ORDERED: MoRPHine SULFATE 2 MG/ML CARP IV PRN (23:30)
[2016-11-27] MEDS ORDERED: ONDANSETRON INJ 2 MG/ML 2 ML VIAL IV PRN (23:30)
[2016-11-27] MEDS ORDERED: POLYETHYLENE (MIRALAX) 17 GM PACK PO PRN (23:30)
--- NOTE | 2016-11-27 23:42 | History and Physical ---
History & Physical Date & Time of Service: Nov 27, 2016 at 23:33 Chief Complaint: Empyema Primary Care Physician: Magda Quiroga DO History of Present Illness Source: patient, other 89 y/o M Hx CAD, diastolic CHF, CKD 2-3 - recently admitted for influ and PNM. Pt suffered an syncopal event this evening when being helped to the bathroom and was initially sent to [place]. Per his son it took 15 min for him to regain full consciousness. He had not complained of worsening SOB, CP or fevers. Despite this a chest CT was obtained which showed B/L infiltrates, effusions and a suspected empyema. He was subsequently transferred to [facility] for further evaluation. The pt, per his son, has been exhibiting intermittent confusion and considerable functional decline. His code status was recently changed to DNR and the family are aware that his prognosis may be poor. 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 4) BPH 5) GERD 6) HPL 7) IDDM 8) Chronic hypoxic respiratory failure - 2l 02 9) Atrial fibrillation 10) Recurrent pleural effusions Family History Noncontributory Social History Smoking Status: Never Smoker Drug Use: none Marital Status: Occupational Status: retired Immunizations History of Influenza Vaccine: Unknown History of Tetanus Vaccine?: Unknown History of Pneumococcal: Yes Pneumococcal Date: Oct 30, 2011 History of Hepatitis B Vaccine: No Multi-Drug Resistant Organisms History of MDRO: No Allergies Coded Allergies: No Known Allergies (Verified , 11/02/16) Home Medications Scheduled Atorvastatin (Atorvastatin Calcium), 20 MG PO HS Diltiazem Hcl Coated Beads (Diltiazem Cd), 180 MG PO QAM Docusate Sodium (Docusate Sodium), 100 MG PO BID Finasteride (Finasteride), 5 MG PO HS Furosemide (Furosemide), 40 MG PO QAM Insulin Aspart (Novolog Flexpen), 0 UNITS SC ACHS Insulin Glargine (Lantus Solostar), 10 UNIT SC BID Ipratropium-Albuterol (Duoneb), 1 TREATMENT INH QID Isosorbide Mononitrate (Isosorbide Mononitrate ER), 30 MG PO QAM Lactulose (Chronulac), 30 ML OR BID Magnesium Oxide (Mag-Ox), 400 MG PO BID Metoprolol Succ (Toprol Xl) (Toprol-Xl), 25 MG PO DAILY Ranitidine (Zantac), 150 MG PO DAILY Tamsulosin Hcl (Flomax), 0.4 CAP PO DAILY Warfarin Sod (Septoven), 2.5 MG PO MONDAYS Warfarin Sod (), 5 MG PO 6XWK Scheduled PRN Tramadol (Ultram), 50 MG PO Q8H PRN for Pain Review of Systems Constitutional: No chills, No fever, No sweats Eyes: No eye pain, No worsening of vision ENT: + hearing loss (chronic), No nasal symptoms, No unusual epistaxis Respiratory: + dyspnea at rest, + dyspnea on exertion, + problem reported ( Chronic dyspnea - no acute change), + shortness of breath Cardiovascular: No PND, No chest pain, No orthopnea Abdomen: No nausea, No pain, No vomiting Musculoskeletal: No joint pain, No muscle pain Genitourinary - Male: No dysuria, No hematuria, No urinary frequency, No urinary urgency Neurologic: + balance problems, + weakness (chronnic), No memory loss, No paralysis Psychiatric: No depression symptoms Endocrine: + fatigue Hematologic / Lymphatic: + abnormal bleeding/bruising Integumentary: + rash Allergic / Immunologic: + environmental allergies Physical Exam General Appearance: WD/WN, no apparent distress, + pertinent finding (COnfused elderly male in no acute distress) Head: normocephalic Eyes: normal inspection ENT: normal ENT inspection, pharynx normal Neck: supple, no JVD Respiratory/Chest: chest non-tender, + decreased breath sounds Cardiovascular: regular rate, rhythm, no edema, no gallop, + pertinent finding (B/L JVD 14cm) Abdomen/GI: normal bowel sounds, non tender, soft Back: normal inspection, no CVA tenderness Extremities/Musculoskelatal: no calf tenderness, + pertinent finding (Edema and chronic LE hyoperpigmentation) Neurologic/Psych: no motor/sensory deficits, alert, + disoriented Skin: + pertinent finding (LE hyperpigmentation) Diagnostics Laboratory Results 141/4.4, 104/33, 30/1.4 trop .029 INR 2.[address] B/L pleural effusion B/L infiltrates Pulmonary edema RLL air/fluid collection Dense LLL compression atalectasis EKG AF on monitor - EKG pending Impression Assessment and Plan 89 y/o M Hx CAD, diastolic CHF, CKD 2-3 - recently admitted for influ and PNM. Pt suffered an syncopal event this evening when being helped to the bathroom and was initially sent to [place]. Per his son it took 15 min for him to regain full consciousness. He had not complained of worsening SOB, CP or fevers. Despite this a chest CT was obtained which showed B/L infiltrates, effusions and a suspected empyema. He was subsequently transferred to [facility] for further evaluation. The pt, per his son, has been exhibiting intermittent confusion and considerable functional decline. His code status was recently changed to DNR and the family are aware that his prognosis may be poor. 1) Syncope - pt will be monitored on telemetry - do not feel a full workup would be beneficial at present and the family were informed of this - we will watch for arrhythmias, cont B risa 2) Pleural effusion - possible empyema , pnm - no clinical indication of toxicity - weakness is present but does not describe increased SOB , cough , fever - no leukocytosis - significance of CT findings are unclear. We will consult pulmonology and treat for HCAP. He may need a chest tube which the family are amenable to unless this is unlikely to lead to sustained improvement. Would schedule palliative tap if no tube is to be placed. 3) CHF - chronic diastolic - clinically decompensated - will provide additional Lasix - measure Is/Os - 4) CKD - creatinine improved compared to baseline 5) AF - ciont Diltiazem, Coumadin - INR is therapeutic 6) DM - SS DNR - Coumadin prophylaxis Total time for this admit including review of extensive outpt records, labs, meds, imaging - discussion with attending at [place], pt/son - 52 min Level of Care Telemetry Resuscitation Status DO NOT RESUSCITATE VTE Prophylaxis VTE Risk Assessment Done? Y/N: Yes Risk Level: High Given or contraindicated: Warfarin (Coumadin)
[2016-11-27] MEDS ORDERED: GLUCOSE 40% GEL 15 GM TUBE PO PRN (23:45)
[2016-11-27] MEDS ORDERED: PIPERACILL/TAZOBAC CONSULT ACTIVE PRN (23:45)
[2016-11-27] MEDS ORDERED: GLUCAGON FOR INJ 1 MG VIAL SQ PRN (23:45)
[2016-11-27] MEDS ORDERED: VANCOMYCIN CONSULT ACTIVE PRN (23:45)
[2016-11-27] MEDS ORDERED: GLUCOSE 10 TABS/TUBE PO PRN (23:45)
[2016-11-28] VITALS (13 sets, daily range): BP systolic 101–130; BP diastolic 58–78; PULSE 80–103; TEMP 36.3–37; O2SAT 91–100
[2016-11-28] MEDS ORDERED: VANCOMYCIN INJ 1,500 MG in SODIUM CHLORIDE 0.9% 500ML 500 ML IV SCH ×2
[2016-11-28] MEDS ORDERED: PIPERACILL/TAZOBAC IV 3.375 GM in DEXTROSE 5% 100ML IV ONE ×2
[2016-11-28] MEDS: DEXTROSE 50% 50 ML SYR IV PRN ×2 (00:25→06:14)
[2016-11-28] MEDS ORDERED: FUROSEMIDE INJ 40 MG in SYRINGE 0 ML IV SCH (01:15)
[2016-11-28 01:31] LABS: CREATININE 1.3 mg/dl (0.60-1.40)
[2016-11-28] MEDS: INSULIN ASPART 100 UNITS/ML 3 ML PEN SC SCH ×4 (06:00→17:08)
[2016-11-28] MEDS: PIPERACILL/TAZOBAC IV 4.5 GM in DEXTROSE 5% 100ML 100 ML IV SCH ×3 (06:00→20:40)
[2016-11-28 06:16] LABS: HEMATOCRIT 28.1 % (42-52); MEAN CELL VOLUME 89.2 fL (80-100); MEAN CORPUSCULAR HEMOGLOBIN 27.9 pg (25-34); MEAN CORPUSCULAR HGB CONC 31.3 g/dl (32-36); MEAN PLATELET VOLUME 8.3 fL (7.4-10.4); PLATELET COUNT 230 K/uL (130-400); RED BLOOD COUNT 3.15 M/uL (4.7-6.1); WHITE BLOOD COUNT 3.86 K/uL (4.8-10.8)
[2016-11-28 06:27] LABS: INR 2.3 (0.9-1.1); PROTHROMBIN TIME (PATIENT) 25.6 SECONDS (9.0-12.0)
[2016-11-28 06:53] LABS: BUN/CREATININE RATIO 22.5 (10-20); CALCIUM 8.4 mg/dl (8.5-10.1); CREATININE 1.2 mg/dl (0.60-1.40); MAGNESIUM 2.4 mg/dl (1.8-2.4); POTASSIUM 3.7 mmol/L (3.5-5.1)
[2016-11-28] MEDS: ALBUT/IPRATROP 3MG/0.5MG NEB 3 ML VIAL INH SCH ×4 (07:18→19:30)
[2016-11-28] MEDS ORDERED: ALBUT/IPRATROP 3MG/0.5MG NEB 3 ML VIAL INH SCH (08:00)
[2016-11-28] MEDS: LACTULOSE SYRUP 30 GM/45 ML UDP PO SCH ×2 (08:35→20:39)
[2016-11-28] MEDS: DOCUSATE SODIUM 100 MG CAP PO SCH ×2 (08:36→20:37)
[2016-11-28] MEDS: METOPROLOL SUCC 25MG EXT REL TAB PO SCH (08:37)
[2016-11-28] MEDS: ISOSORBIDE MONONITRATE 30 MG TABCR PO SCH (08:37)
[2016-11-28] MEDS: RANITIDINE HCL 150 MG TAB PO SCH (08:37)
[2016-11-28] MEDS: MAGNESIUM OXIDE 400 MG TAB PO SCH ×2 (08:38→20:38)
[2016-11-28] MEDS: DILTIAZEM HCL 180 MG CAPCR PO SCH (08:38)
[2016-11-28] MEDS: TAMSULOSIN HCL 0.4 MG CAP PO SCH (08:38)
[2016-11-28] MEDS ORDERED: INSULIN GLARGINE SOLOSTAR 100 UNITS/ML 3 ML PEN SC SCH (09:00)
[2016-11-28] MEDS ORDERED: FUROSEMIDE 40 MG TAB PO SCH (09:00)
--- NOTE | 2016-11-28 09:53 | Pharmacy Progress Note ---
Pharmacy Antibiotic Consult Date of Service: Nov 28, 2016. Pharmacy Dosing Scope Pharmacy is consulted to initiate Vancomycin/Zosyn IV dosing therapy, order appropriate labs and adjust drug dose/frequency. Subjective The patient is a 89 year old male admitted on Nov 27, 2016 at 21:56 with possible HCAP, possible empyema. Objective Height (Feet): 6 Height (Inches): 0.00 Weight (Kilograms): 76.300 Lab Results (24hrs): Laboratory Tests Test 11/28/16 00:53 11/28/16 05:40 Creatinine 1.30 mg/dl 1.20 mg/dl BUN/Creatinine Ratio 22.5 Blood Urea Nitrogen 27 mg/dl White Blood Count 3.86 K/uL Micro Results: None thus far on this admission Recent Pertinent Medications Item Value Date Time Piperacillin Sod/ 120 ml @ 30 mls/hr 11/28/16 0600 Tazobactam Sod Q8H/IV 11/28/16 0600 4.5 gm/Dextrose Vancomycin HCl 530 ml @ 200 mls/hr 11/28/16 0000 1500 mg/Sodium TODAY@0000/IV 11/28/16 0108 Chloride Piperacillin Sod/ 115 ml @ 230 mls/hr 11/28/16 0000 Tazobactam Sod 0000 ONCE/IV 11/28/16 0108 3.375 gm/Dextrose Vancomycin HCl 1 ea 11/27/16 2345 (Consult) UD PRN/N/A Piperacillin Sod/ 1 ea 11/27/16 2345 Tazobactam Sod UD PRN/N/A (Consult) Assessment & Plan [age] male patient admitted with possible HCAP, possible emypema and mental status changes. History of CKD, serum creatinine lower than typical baseline. Based in admitting Scr, expected Vancomycin half-life ~16 hours therefore initiate q20 hrs dosing interval to ensure pulmonary penetration, however, may need to empirically widen dosing interval if SCr moves toward baseline. Will check Vancomycin trough pre steady-state to verify Vancomycin clearance. Loading dose: Vancomycin 1500 mg (~21 mg/kg) IV X 1 dose then: Vancomycin 1150 mg (~ 15 mg/kg) IV every 20 hours. Goal peak level estimate: between 25 - 40 mcg/mL. Goal trough level estimate: between 15 - 20 mcg/mL. (High trough goals for pulmonary indication to ensure penetration) Vancomycin trough level (pre steady-state) has been ordered for: November 30 prior to the 0600 hours dose Pharmacy will continue to follow and will adjust dose/frequency as necessary. Thank you
[2016-11-28 11:45] LABS: THYROID STIMULATING HORMONE 1.85 uIu/ml (0.300-4.500)
[2016-11-28] MEDS: VANCOMYCIN INJ 1,150 MG in SODIUM CHLORIDE 0.9% 250ML 250 ML IV SCH (13:36)
[2016-11-28] MEDS ORDERED: WARFARIN SOD 5 MG TAB PO SCH (16:00)
[2016-11-28] MEDS ORDERED: FUROSEMIDE INJ 40 MG in SYRINGE 0 ML IV ONE (16:00)
[2016-11-28] MEDS: POTASSIUM CHLORIDE 20 MEQ TABCR PO SCH ×2 (16:39→20:39)
[2016-11-28] MEDS: FINASTERIDE 5 MG TAB PO SCH (20:37)
[2016-11-28] MEDS: ATORVASTATIN 20 MG TAB PO SCH (20:38)
--- NOTE | 2016-11-28 21:04 | Progress Note ---
Subjective Date of Service: Nov 28, 2016. Subjective Pt evaluation today including: conversation w/ patient, conversation w/ family (son at bedside), physical exam, chart review, lab review, review of studies ( CT chest from [facility]), review of inpatient medication list Pain: nothing voiced by patient PO Intake: very poor Voiding: robles catheter in place tele stable overnight much of the history was obtained from the son patient DID wake up to tell me about his home, what his work was over the years , etc and he did know he was at [facility] son reports his father has been losing weight for several months; unknown amount was living independently in [place] up until early October In October was admitted to [facility] for CHF d/c home within a few days ended up at [facility] for 1 week had thoracentesis of the right lung while there he also had hepatic encephalopathy d/c to [facility] there for a few days then readmitted here last pm he has only been on oxygen since October 2016 son and his siblings are contemplating hospice they are not sure how aggressive to be with his care given his worsening status records reviewed from [facility] - CTA chest -- no PE b/l pleural effusions worse on left right effusion is loculated vs hydropneumothorax pulmonary edema b/l Problem List Medical Problems: (1) Atrial fibrillation with RVR Status: Acute (2) Elevated troponin Status: Acute (3) Heart failure Status: Acute (4) Influenza Status: Acute Review of Systems patient too sleepy to given reliable ROS Objective Vital Signs Date Time Temp Pulse Resp B/P Pulse Ox O2 Delivery O2 Flow Rate FiO2 11/28/16 19:10 36.7 82 18 116/65 100 Nasal Cannula 3.0 11/28/16 16:00 Nasal Cannula 3.0 11/28/16 16:00 94 20 96 Nasal Cannula 3.0 11/28/16 15:38 36.3 80 20 101/58 91 Nasal Cannula 3.0 11/28/16 12:00 92 Nasal Cannula 3.0 11/28/16 11:20 98 20 98 Nasal Cannula 3.0 11/28/16 11:12 37.0 97 19 103/65 97 Nasal Cannula 3.0 11/28/16 08:00 92 Nasal Cannula 4.0 11/28/16 07:18 103 20 93 Nasal Cannula 3.0 11/28/16 07:17 36.8 100 16 130/78 98 Nasal Cannula 5.0 11/28/16 04:18 92 Nasal Cannula 4.0 11/28/16 03:22 36.9 84 20 129/74 97 Nasal Cannula 5.0 11/28/16 00:00 92 Nasal Cannula 4.0 11/27/16 23:06 36.6 83 20 136/72 92 Nasal Cannula 2.0 Physical Exam General Appearance: no apparent distress, + cachetic, + thin ENT: pharynx normal Neck: + JVD (8cm) Respiratory/Chest: no respiratory distress, no accessory muscle use, + decreased breath sounds (left base), + crackles (dense, right base) Cardiovascular: no murmur, + tachycardia, + irregularly irregular Abdomen: normal bowel sounds, non tender, soft, no organomegaly Extremities: no pedal edema Neurologic/Psychiatric: + abnormal cerebellar tests (asterixis present), + pertinent finding (sleepy; but once awake is a/o x 2) Skin: + pertinent finding (severe stasis changes b/l legs ) Laboratory Results Last 24 Hours Test 11/28/16 00:02 11/28/16 00:16 11/28/16 00:40 11/28/16 00:53 Bedside Glucose 53 mg/dl 53 mg/dl 106 mg/dl Creatinine 1.30 mg/dl Est Creatinine Clear Calc Drug Dose 40.4 ml/min Estimated GFR () 56.5 Estimated GFR (Non- 48.7 Test 11/28/16 03:06 11/28/16 05:40 11/28/16 06:06 11/28/16 06:34 Bedside Glucose 78 mg/dl 59 mg/dl 104 mg/dl White Blood Count 3.86 K/uL Red Blood Count 3.15 M/uL Hemoglobin 8.8 g/dL Hematocrit 28.1 % Mean Corpuscular Volume 89.2 fL Mean Corpuscular Hemoglobin 27.9 pg Mean Corpuscular Hemoglobin Concent 31.3 g/dl RDW Standard Deviation 65.4 fL RDW Coefficient of Variation 21.0 % Platelet Count 230 K/uL Mean Platelet Volume 8.3 fL Prothrombin Time 25.6 SECONDS Prothromb Time International Ratio 2.3 Sodium Level 145 mmol/L Potassium Level 3.7 mmol/L Chloride Level 103 mmol/L Carbon Dioxide Level 37 mmol/L Anion Gap 5.0 mmol/L Blood Urea Nitrogen 27 mg/dl Creatinine 1.20 mg/dl Est Creatinine Clear Calc Drug Dose 45.9 ml/min Estimated GFR () 62.2 Estimated GFR (Non- 53.7 BUN/Creatinine Ratio 22.5 Random Glucose 52 mg/dl Calcium Level 8.4 mg/dl Magnesium Level 2.4 mg/dl Total Bilirubin 0.6 mg/dl Direct Bilirubin 0.2 mg/dl Aspartate Amino Transf (AST/SGOT) 13 U/L Alanine Aminotransferase (ALT/SGPT) 12 U/L Alkaline Phosphatase 67 U/L Troponin I 0.025 ng/ml Total Protein 6.1 gm/dl Albumin 2.5 gm/dl Thyroid Stimulating Hormone (TSH) 1.850 uIu/ml Test 11/28/16 10:55 11/28/16 11:29 11/28/16 16:17 11/28/16 20:26 Ammonia 27.0 umol/L Bedside Glucose 160 mg/dl 201 mg/dl 239 mg/dl Assessment and Plan 89yo male with: 1. syncope - etiology uncertain, but infectious etiology (pulmonary) possible. Has severe pulmonary HTN and acute/chronic diastolic CHF and hypoxia could have contributed. Extreme weakness from deconditioning also possible. Uncontrolled a. fib also possible. Tele stable since admission. No evidence of ACS. 2. acute/chronic diastolic CHF - 2 liter diuresis with lasix overnight. Still w/ JVD, rales, etc. Give another lasix dose this afternoon and re-eval in AM. 3. b/l pleural effusions - s/p thoracentesis on right at [facility] within the last 2 weeks. Will attempt to gain more information about the fluid studies, cytologies, etc from that tap. Suspect some element of CHF causing this. Cannot rule out right-sided empyema based on CT findings but he is not having right sided pain, fever, leukocytosis, etc. This may simply be a residual hydropneumothorax. Will likely involve pulmonary and/or CT surgery for their opinion. Family unsure how aggressive to be w/ his care in light of his rapidly declining status. continue diuresis in meantime. hold coumadin in preparation for any thoracentesis, etc. 4. encephalopathy - hepatic vs metabolic vs other. check ammonia level. treat for possible empyema. 5. a. fib - rates acceptable; hold coumadin in light of fall risk, poor nutrition, higher risk of bleeding, and chance he may need procedure 6. anemia - chronic, with modest worsening since last check. Repeat CBC in am for stability. 7. severe protein calorie malnutrition - ongoing issue. Concerning for underlying malignancy. No w/u in light of advanced age and other issues. 8. chronic respiratory failure - likely multifactorial - severe pulmonary HTN, CHF, pleural effusions, etc. Sats stable on current O2 amount. 9. weight loss, cachexia - concerning for underlying malignancy or some other advanced disease. 10. CKD stage 3 - creatinine at baseline. BMP in am for stability. 11. recent hepatic encephalopathy - 2nd to right heart failure? repeat ammonia level today lactulose daily complex patient doing poorly overall son updated records and CT chest reviewed total time about 60 minutes Continued [facility] stay due to: inadequate po fluid intake, ambulation difficulties , multiple IV medications needed Discharge planning: uncertain
[2016-11-29] VITALS (9 sets, daily range): BP systolic 97–115; BP diastolic 62–71; PULSE 69–89; TEMP 36.3–37.2; O2SAT 89–99
[2016-11-29] MEDS: INSULIN ASPART 100 UNITS/ML 3 ML PEN SC SCH ×4 (00:43→17:34)
[2016-11-29] MEDS: PIPERACILL/TAZOBAC IV 4.5 GM in DEXTROSE 5% 100ML 100 ML IV SCH ×3 (06:04→21:01)
[2016-11-29 06:52] LABS: BASO % 0.8 %; BASO ABS # 0.03 K/uL (0-0.2); EOS % 6.4 %; HEMATOCRIT 27.5 % (42-52); IG% 0.3 %; LYMPH % 8.4 %; LYMPH ABS # 0.33 K/uL (1.2-3.4); MEAN CELL VOLUME 90.8 fL (80-100); MEAN CORPUSCULAR HEMOGLOBIN 28.1 pg (25-34); MEAN CORPUSCULAR HGB CONC 30.9 g/dl (32-36); MEAN PLATELET VOLUME 8.5 fL (7.4-10.4); MONO % 15.1 %; PLATELET COUNT 211 K/uL (130-400); RED BLOOD COUNT 3.03 M/uL (4.7-6.1); WHITE BLOOD COUNT 3.92 K/uL (4.8-10.8)
[2016-11-29 07:08] LABS: INR 2.3 (0.9-1.1); PROTHROMBIN TIME (PATIENT) 25.6 SECONDS (9.0-12.0)
[2016-11-29 07:22] LABS: BUN/CREATININE RATIO 17.2 (10-20); CALCIUM 8.1 mg/dl (8.5-10.1); CREATININE 1.3 mg/dl (0.60-1.40); POTASSIUM 4.1 mmol/L (3.5-5.1)
[2016-11-29] MEDS: ALBUT/IPRATROP 3MG/0.5MG NEB 3 ML VIAL INH SCH ×5 (07:35→20:00)
[2016-11-29] MEDS ORDERED: FUROSEMIDE INJ 40 MG in SYRINGE 0 ML IV ONE (07:40)
[2016-11-29 08:39] LABS: ANISOCYTOSIS PRESENT; COMPLETE YES; OVALOCYTES 1+; POLYCHROMASIA 1+
[2016-11-29] MEDS: MAGNESIUM OXIDE 400 MG TAB PO SCH ×2 (08:46→20:54)
[2016-11-29] MEDS: POTASSIUM CHLORIDE 20 MEQ TABCR PO SCH ×2 (08:46→20:54)
[2016-11-29] MEDS: DOCUSATE SODIUM 100 MG CAP PO SCH ×2 (08:46→20:14)
[2016-11-29] MEDS: DILTIAZEM HCL 180 MG CAPCR PO SCH (08:47)
[2016-11-29] MEDS: RANITIDINE HCL 150 MG TAB PO SCH (08:47)
[2016-11-29] MEDS: ISOSORBIDE MONONITRATE 30 MG TABCR PO SCH (08:47)
[2016-11-29] MEDS: METOPROLOL SUCC 25MG EXT REL TAB PO SCH (08:47)
[2016-11-29] MEDS: LACTULOSE SYRUP 30 GM/45 ML UDP PO SCH ×2 (08:48→20:55)
[2016-11-29] MEDS: TAMSULOSIN HCL 0.4 MG CAP PO SCH (08:48)
[2016-11-29] MEDS ORDERED: PHYTONADIONE 5 MG TAB PO STA (09:28)
[2016-11-29] MEDS ORDERED: PHYTONADIONE PED 1 MG/0.5ML AMP/SYRG IV STA (10:04)
[2016-11-29] MEDS ORDERED: SODIUM CHLORIDE 0.9% IV SCH (10:30)
[2016-11-29] MEDS ORDERED: PHYTONADIONE IV SCH (10:30)
[2016-11-29] MEDS: VANCOMYCIN INJ 1,150 MG in SODIUM CHLORIDE 0.9% 250ML 250 ML IV SCH (10:48)
[2016-11-29] MEDS ORDERED: LIDOCAINE HCL 1% 20 ML VIAL ONE (14:23)
[2016-11-29 14:34] LABS: INR 1.8 (0.9-1.1); PROTHROMBIN TIME (PATIENT) 20.3 SECONDS (9.0-12.0)
--- NOTE | 2016-11-29 15:31 | DIAGNOSTIC IMAGING REPORT ---
SINGLE VIEW CHEST CLINICAL HISTORY: Pleurx catheter placement. FINDINGS: An AP, portable, upright chest radiograph is compared to study dated 11/02/2016 and correlated with chest CT dated 06/27/2014. The examination is degraded by portable technique and patient rotation. The patient is status post midline sternotomy. The heart is enlarged and there is atherosclerotic calcification of the thoracic aorta. The trachea is midline. There is pulmonary vascular congestion with interstitial edema. A pleural drain has been placed at the right lung base. The volume of pleural fluid at the right lung base has decreased from previous. There is a small to moderate pneumothorax now seen at the right lung base. A left pleural effusion is identified and there is left basilar consolidation. Biapical scarring is observed. The skeletal structures are osteopenic. Advanced degenerative changes noted in the right shoulder and throughout the thoracic spine. Advanced atherosclerotic calcification is noted in the upper extremity arteries. IMPRESSION: 1. A pleural drain has been placed at the right lung base. The volume of pleural fluid at the right lung base has significantly decreased. 2. There is a small to moderate right basilar pneumothorax status post catheter placement. The trachea is midline. 3. Left pleural effusion with left basilar consolidation. This likely represents atelectasis. Clinical correlation will be required. 4. Cardiomegaly with evidence of congestive failure and interstitial edema. Electronically signed by: Denny Ferrari M.D. 11/29/2016 3:30 PM Dictated Date/Time: 11/29/2016 3:27 PM
--- NOTE | 2016-11-29 16:09 | SURGICAL CONSULTATION ---
DATE OF CONSULTATION: 11/29/2016 REASON FOR CONSULTATION: Large bilateral pleural effusions. HISTORY OF PRESENT ILLNESS: Mr. Dumont is a very nice 89-year-old male who has been in and out of the hospital for the last several weeks with respiratory issues found to have bilateral pleural effusions and has been tapped at [facility]. These apparently are exudate and there is some question about whether or not these may represent lymphoma. The patient had a syncopal episode on 11/27/2016 and was evaluated at [facility] and sent to [facility]. He is becoming more and more confused, had some functional decline. He is 89 and has recently been changed to do not resuscitate. He readily admits that he is quite short of breath especially with any type of exertion and despite the fact that he is confused. I have been asked to comment on this from a thoracic surgery standpoint. PAST MEDICAL HISTORY: 1. Deteriorating neurologic/cognitive function. 2. Chronic hypoxic respiratory failure. 3. Diastolic dysfunction. 4. Coronary artery disease. 5. Episodes of congestive heart failure. 6. Renal insufficiency. 7. Benign prostatic hypertrophy. 8. Insulin-dependent diabetes mellitus. 9. Atrial fibrillation. 10. Hyperlipidemia. PAST SURGICAL HISTORY: Bilateral thoracentesis. MEDICATIONS: 1. Coumadin. 2. Atorvastatin. 3. Diltiazem. 4. Flomax. 5. Zantac. 6. Lactulose. 7. Magnesium oxide. 8. Toprol-XL. 9. DuoNeb. 10. Lantus insulin. 11. Finasteride. 12. Lasix. 13. NovoLog insulin. 14. Colace. ALLERGIES: No known drug allergies. 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 He lives with his daughter and his other daughter lives next door to him. His son is an contract attorney in [place] and was present at bedside to help with obtaining the history. REVIEW OF SYSTEMS: The patient denies fevers and sweat but apparently, he has lost some weight. His appetite has been worse. He has marked dyspnea which is worsening over the last several weeks. He had no productive cough. No fevers. He has had apparently no peripheral edema. He denies vomiting or nausea, did have a syncopal episode as described, and it was very difficult to awaken him. He has had no wound breakdown. He has no obvious visual or auditory symptoms. He has had some bleeding and bruising. He has had some problems with rash. He has had problem with balance. PHYSICAL EXAMINATION: GENERAL: This is a thin, almost cachectic elderly male who stands 5 feet tall and weighs 160 pounds. HEENT: His extraocular movements are intact. Pupils are equal, round and reactive. He has no nasolabial flattening. His tongue is midline. He has an upper denture plate, but I see no obvious oropharyngeal lesions. HEART: He has a few teeth left in the anterior aspect of his mandible. There is no obvious abscess. NECK: Thin but supple. I really do not detect much in the way of lymphadenopathy or in neck vein distention. He has no carotid bruits. LUNGS: Decreased breath sounds in both lung tate, worse on the left than the right. HEART: He has an irregularly irregular rhythm of his heart. ABDOMEN: Soft and really has no tenderness now. It does not appear that he has ascites. EXTREMITIES: Upon evaluation of the lower extremities, I really do not see any edema. He has got no joint effusions. I can palpate posterior tibialis pulses faintly. NEUROLOGIC: He is moving everything, but he is quite confused. DATA REVIEW: CT scan from 11/27/2016 from [facility] he has marked pleural effusions. He has a small pneumothorax in the right with a large amount of fluid. ASSESSMENT AND PLAN: Bilateral exudative effusions, questionable due to lymphoma. I had a long talk with the patient and Dr. Moran as well as the patient's son. I elected to place a PleurX catheter in this patient in the right pleural cavity. We will reverse his Coumadin with some intravenous vitamin K and recheck an INR and I will put a right PleurX catheter in him later today. EMILY
[2016-11-29 16:14] LABS: PLEURAL FLUID APPEARANCE CLOUDY; PLEURAL FLUID COLOR AMBER; PLEURAL FLUID SOURCE RIGHT LUNG; PLEURAL FLUID WBC (A) 157 /uL
[2016-11-29 16:16] LABS: PLEURAL FLUID MONONUC RELAT 91.7 %; PLEURAL FLUID POLYNUC 8.3 %
[2016-11-29 16:25] LABS: PLEURAL FLUID TOTAL PROTEIN 1.3 g/dl
[2016-11-29] MEDS: BOOST GLUCOSE CONTROL PO SCH (17:33)
--- NOTE | 2016-11-29 19:02 | OPERATIVE REPORT ---
DATE OF OPERATION: 11/29/2016 PREOPERATIVE DIAGNOSES: 1. Right hydropneumothorax. 2. Large left pleural effusion. POSTOPERATIVE DIAGNOSES: Same. PROCEDURE: Insertion of right PleurX catheter. SURGEON: Dr. Holman. HOUSE BUILDER: DIPTI Dewitt ANESTHESIA: Local. SPECIFICS OF PROCEDURE: Mr. Dumont is an 89-year-old male with multiple issues who presented with shortness of breath which has gotten worse and worse over the last several weeks. He has been in and out of the hospital for the last month. He underwent a thoracentesis at [facility] and it appears this is an exudate. There is also a question about whether or not this may be from a lymphoma. At any rate we had a long discussion about this and the patient's family including his son and 3 daughters. We elected to proceed with insertion of a PleurX catheter. He tolerated well. We drained 1150 mL of a tea colored fluid. DESCRIPTION OF PROCEDURE: The patient was laid in the left lateral decubitus position, right chest prepped, draped in usual sterile fashion. Approximately, the mid axillary line skin wheel was raised with a 25-guage needle and 1% Xylocaine after an ultrasound had been used to localize the window. A 10 cm anterior to this, another skin wheal was raised 25-guage needle with 1% Xylocaine. 1 cm incisions were made at each. A larger needle was used to anesthetize the deeper tissues in the posterior incision going above the rib. After the muscles and pleura and periosteum had been anesthetized, free flowing fluid was obtained and a guidewire was inserted through the needle and needle removed. A tunneler was attached to the PleurX catheter and dragged from the anterior to the posterior incision and the tunneler removed. A peel away introducer sheath with the inner cannula was slid over the guidewire posteriorly and the inner cannula and guidewire removed and the PleurX catheter was inserted through the introducer sheath and introducer sheath peeled away. Two separate 3-0 silk sutures were used to close the posterior incision and a 3-0 silk suture was used to anchor the catheter to the patient's skin anteriorly. 1450 mL of an orange-tinged serous fluid was drained. He developed some reexpansion pain so we stopped. We will simply drain him again tomorrow. He tolerated it very well. A chest x-ray is pending at this time. Appropriate labs were sent. I attest to the content of the Intraoperative Record and any orders documented therein. Any exceptions are noted below. EMILY
[2016-11-29] MEDS: FINASTERIDE 5 MG TAB PO SCH (20:30)
[2016-11-29] MEDS: ATORVASTATIN 20 MG TAB PO SCH (20:54)
[2016-11-29] MEDS: INSULIN GLARGINE SOLOSTAR 100 UNITS/ML 3 ML PEN SC SCH (21:04)
[2016-11-30] VITALS (10 sets, daily range): BP systolic 100–137; BP diastolic 57–76; PULSE 63–102; TEMP 36.7–37; O2SAT 93–100
--- NOTE | 2016-11-30 01:05 | Progress Note ---
Subjective Date of Service: Nov 29, 2016. Subjective Pt evaluation today including: conversation w/ patient, conversation w/ family (3 children at bedside), physical exam, chart review, lab review, review of studies (cxr), conversation w/ hr business partner consultant (thoracic surgery), review of inpatient medication list Pain: denies PO Intake: fair Voiding: robles catheter in place tele with rate controlled a. fib overnight family at bedside report he has been lucid without any confusion today denies cough or dyspnea at rest but has dyspnea with activity Problem List Medical Problems: (1) Atrial fibrillation with RVR Status: Acute (2) Elevated troponin Status: Acute (3) Heart failure Status: Acute (4) Influenza Status: Acute Review of Systems Constitutional: No chills, No fever Respiratory: + cough, + dyspnea on exertion Cardiac: + orthopnea, No chest pain Abdomen: No pain Objective Vital Signs Date Time Temp Pulse Resp B/P Pulse Ox O2 Delivery O2 Flow Rate FiO2 11/29/16 20:00 Nasal Cannula 3.0 11/29/16 19:38 36.3 89 16 108/64 95 Nasal Cannula 3.0 11/29/16 16:00 Nasal Cannula 3.0 11/29/16 15:44 36.4 87 18 102/63 99 Nasal Cannula 2.0 11/29/16 15:29 77 12 92 Nasal Cannula 3.0 11/29/16 12:18 36.8 85 20 101/62 96 11/29/16 12:00 Nasal Cannula 3.0 11/29/16 11:18 74 12 91 Nasal Cannula 3.0 11/29/16 08:03 36.9 87 19 109/63 90 Nasal Cannula 3.0 11/29/16 08:00 Nasal Cannula 3.0 11/29/16 07:35 87 18 89 Nasal Cannula 3.0 11/29/16 04:00 Nasal Cannula 3.0 11/29/16 02:58 36.8 69 22 115/71 99 Nasal Cannula 3.0 Physical Exam General Appearance: no apparent distress, + cachetic, + thin ENT: pharynx normal Neck: + JVD (3/4 way up neck) Respiratory/Chest: no respiratory distress, no accessory muscle use, + decreased breath sounds (left base), + rales (right base) Cardiovascular: no gallop, no murmur, + irregularly irregular Abdomen: normal bowel sounds, non tender, soft, no organomegaly Extremities: no pedal edema Neurologic/Psychiatric: alert, oriented x 3 Skin: + pertinent finding (severe stasis changes b/l shins) Laboratory Results Last 24 Hours Test 11/29/16 06:04 11/29/16 06:30 11/29/16 11:40 11/29/16 13:54 Bedside Glucose 156 mg/dl 196 mg/dl White Blood Count 3.92 K/uL Red Blood Count 3.03 M/uL Hemoglobin 8.5 g/dL Hematocrit 27.5 % Mean Corpuscular Volume 90.8 fL Mean Corpuscular Hemoglobin 28.1 pg Mean Corpuscular Hemoglobin Concent 30.9 g/dl Platelet Count 211 K/uL Mean Platelet Volume 8.5 fL Neutrophils (%) (Auto) 69.0 % Lymphocytes (%) (Auto) 8.4 % Monocytes (%) (Auto) 15.1 % Eosinophils (%) (Auto) 6.4 % Basophils (%) (Auto) 0.8 % Neutrophils # (Auto) 2.71 K/uL Lymphocytes # (Auto) 0.33 K/uL Monocytes # (Auto) 0.59 K/uL Eosinophils # (Auto) 0.25 K/uL Basophils # (Auto) 0.03 K/uL RDW Standard Deviation 68.8 fL RDW Coefficient of Variation 21.1 % Immature Granulocyte % (Auto) 0.3 % Immature Granulocyte # (Auto) 0.01 K/uL Polychromasia 1+ Anisocytosis PRESENT Ovalocytes 1+ Prothrombin Time 25.6 SECONDS 20.3 SECONDS Prothromb Time International Ratio 2.3 1.8 Sodium Level 145 mmol/L Potassium Level 4.1 mmol/L Chloride Level 103 mmol/L Carbon Dioxide Level 37 mmol/L Anion Gap 5.0 mmol/L Blood Urea Nitrogen 22 mg/dl Creatinine 1.30 mg/dl Est Creatinine Clear Calc Drug Dose 40.2 ml/min Estimated GFR () 56.5 Estimated GFR (Non- 48.7 BUN/Creatinine Ratio 17.2 Random Glucose 139 mg/dl Calcium Level 8.1 mg/dl Test 11/29/16 14:50 11/29/16 15:36 11/29/16 16:19 11/29/16 20:40 Pleural Fluid pH 7.33 Lactate Dehydrogenase 150 U/L Bedside Glucose 151 mg/dl 167 mg/dl Test 11/30/16 00:01 Bedside Glucose 150 mg/dl Assessment and Plan 89yo male with: 1. syncope - etiology uncertain, but infectious etiology (pulmonary) suspected. Has severe pulmonary HTN and acute/chronic diastolic CHF and hypoxia could have contributed. Extreme weakness from deconditioning also possible. Uncontrolled a. fib also possible. Tele stable since admission. No evidence of ACS. 2. acute/chronic diastolic CHF - will give another dose of IV lasix today; follow UOP and recheck BMP in am. 3. b/l pleural effusions with concern of empyema on right - s/p thoracentesis on right at [facility] within the last 2 weeks. Cytology from that tap showed abundance of lymphocytes (by report) and lymphoma could not be ruled out. Fluid was apparently exudative. Consulted Dr. Holman today who recommended pleurX catheter. PleurX placed; initial gram stain with MANY GRAM NEGATIVE RODS. Will continue zosyn/vanco IV and narrow coverage once culture returns. 4. encephalopathy - appears resolved. 5. a. fib - rates acceptable; holding coumadin for pleurX placement. 6. anemia - chronic, with modest worsening since last check. Repeat CBC stable. 7. severe protein calorie malnutrition - ongoing issue. Concerning for underlying malignancy. No w/u in light of advanced age and other issues. Cytologies from pleural fluid might shed light. 8. chronic respiratory failure - likely multifactorial - severe pulmonary HTN, CHF, pleural effusions, etc. Sats stable on current O2 amount. 9. weight loss, cachexia - concerning for underlying malignancy or some other advanced disease. 10. CKD stage 3 - creatinine at baseline. BMP in am for stability. 11. recent hepatic encephalopathy - 2nd to right heart failure? no signs of such while hospitalized. most recent ammonia level normal. 12. T2DM - resumed lantus 5 units HS with novolog with meals. PT, OT family extensively updated at bedside today time about 35 minutes Continued [facility] stay due to: inadequate po fluid intake, ambulation difficulties , multiple IV medications needed Discharge planning: uncertain
[2016-11-30] MEDS: PIPERACILL/TAZOBAC IV 4.5 GM in DEXTROSE 5% 100ML 100 ML IV SCH ×3 (05:13→20:29)
[2016-11-30] MEDS ORDERED: VANCOMYCIN TROUGH ONE (05:30)
[2016-11-30] MEDS: VANCOMYCIN INJ 1,150 MG in SODIUM CHLORIDE 0.9% 250ML 250 ML IV SCH (05:35)
[2016-11-30] MEDS: INSULIN ASPART 100 UNITS/ML 3 ML PEN SC SCH ×4 (06:00→17:41)
[2016-11-30 06:40] LABS: INR 1.3 (0.9-1.1); PROTHROMBIN TIME (PATIENT) 14.2 SECONDS (9.0-12.0)
[2016-11-30] MEDS: ALBUT/IPRATROP 3MG/0.5MG NEB 3 ML VIAL INH SCH ×4 (07:04→19:05)
--- NOTE | 2016-11-30 07:06 | DIAGNOSTIC IMAGING REPORT ---
SINGLE VIEW CHEST CLINICAL HISTORY: Pneumothorax status post Pleurx catheter placement. FINDINGS: An AP, portable, upright chest radiograph is compared to study dated 11/29/2016 and correlated with chest CT dated 06/27/2014. The examination is degraded by portable technique and patient rotation. The patient is status post midline sternotomy. The heart is enlarged and there is atherosclerotic calcification of the thoracic aorta. The trachea is midline. There is pulmonary vascular congestion with interstitial edema. A pleural drain at the right lung base is unchanged in position. There is a small residual right pleural effusion which has modestly increased in size from yesterday. There is a small to moderate pneumothorax now seen at the right lung base. A left pleural effusion is unchanged and there is left basilar consolidation. Biapical scarring is observed. The skeletal structures are osteopenic. Advanced degenerative changes noted in the right shoulder and throughout the thoracic spine. Advanced atherosclerotic calcification is noted in the upper extremity arteries. IMPRESSION: 1. A pleural drain at the right lung base is unchanged in position. There is a small residual pleural effusion. 2. Unchanged appearance of a small to moderate right basilar pneumothorax. The trachea remains midline. 3. Left pleural effusion with left basilar consolidation. This likely represents atelectasis. Clinical correlation will be required. 4. Cardiomegaly with evidence of congestive failure and interstitial edema. Electronically signed by: Denny Ferrari M.D. 11/30/2016 7:04 AM Dictated Date/Time: 11/30/2016 7:03 AM
[2016-11-30 07:10] LABS: BUN/CREATININE RATIO 14.8 (10-20); CALCIUM 8.3 mg/dl (8.5-10.1); CREATININE 1.3 mg/dl (0.60-1.40); MAGNESIUM 2.3 mg/dl (1.8-2.4); POTASSIUM 4.3 mmol/L (3.5-5.1)
[2016-11-30] MEDS: LACTULOSE SYRUP 30 GM/45 ML UDP PO SCH ×2 (09:32→20:29)
[2016-11-30] MEDS: DOCUSATE SODIUM 100 MG CAP PO SCH ×3 (09:33→20:29)
--- NOTE | 2016-11-30 10:05 | DIAGNOSTIC IMAGING REPORT ---
CHEST ONE VIEW PORTABLE CLINICAL HISTORY: pleural effusion COMPARISON STUDY: 11/30/2016 FINDINGS: There are postsurgical changes of midline sternotomy. The heart remains mildly enlarged. There is radiographic evidence of pulmonary vascular congestion/fluid overload. There is a left pleural effusion. There is a right basilar chest tube. There is a right basilar pneumothorax, slightly smaller than on the prior study with a maximal pleural separation of 3.9 mm. There is a small amount of right pleural fluid/thickening present.[ IMPRESSION: 1. Interval decrease in the size of the right basilar pneumothorax 2. No change in the position right-sided pleural drain 3. Bilateral pleural effusions with associated left basilar atelectasis/consolidation 4. Cardiomegaly with radiographic evidence of congestive failure/interstitial edema Electronically signed by: Florencio Martin M.D. 11/30/2016 10:04 AM Dictated Date/Time: 11/30/2016 10:02 AM
[2016-11-30] MEDS: BOOST GLUCOSE CONTROL PO SCH ×2 (10:17→17:41)
[2016-11-30] MEDS: MAGNESIUM OXIDE 400 MG TAB PO SCH ×2 (10:19→20:29)
[2016-11-30] MEDS: POTASSIUM CHLORIDE 20 MEQ TABCR PO SCH ×2 (10:20→20:29)
[2016-11-30] MEDS: METOPROLOL SUCC 25MG EXT REL TAB PO SCH (10:20)
[2016-11-30] MEDS: RANITIDINE HCL 150 MG TAB PO SCH (10:20)
[2016-11-30] MEDS: TAMSULOSIN HCL 0.4 MG CAP PO SCH (10:20)
[2016-11-30] MEDS: DILTIAZEM HCL 180 MG CAPCR PO SCH (10:23)
[2016-11-30] MEDS: ISOSORBIDE MONONITRATE 30 MG TABCR PO SCH (10:24)
--- NOTE | 2016-11-30 10:29 | Pharmacy Progress Note ---
Pharmacy Antibiotic Prog Note Date of Service: Nov 30, 2016. Subjective: The patient is currently receiving the following antimicrobial therapy for treatment of b/l pleural effusion with concern for empyema: * Vancomycin 1150 mg IV every 20 hours * Zosyn 4.5 g IV every 8 hours The patient is currently on day # 4 of IV therapy. Objective: Height (Feet): 6 Height (Inches): 0.00 Weight (Kilograms): 73.400 Levels: Item Value Date Time Vancomycin Level Trough 16.7 mcg/ml 11/30/16 0523 Lab Results (24hrs): Laboratory Tests Test 11/30/16 05:23 BUN/Creatinine Ratio 14.8 Blood Urea Nitrogen 19 mg/dl Creatinine 1.30 mg/dl Micro Results: Item Value Date Time C.difficile Toxin B Gene (PCR) - Final Complete 11/28/16 1800 Stool No C. difficile toxin B gene detected Acid Fast Stain Received 11/29/16 0000 Pleural Fluid (Thoracentesis) Right Pending Fungal Smear - Final Resulted 11/29/16 0000 Pleural Fluid (Thoracentesis) Right SPEC #: [id number] DARRION: 11/29/16-UNK STATUS: RES REQ #: [id number] RECD: 11/29/16-1525 [facility] DR: Silvano Miller,DIPTI SOURCE: PLEURAL FL ENTR: 11/29/16-[address]: Magda Qurioga DO SPDESC: RIGHT Yaniv Whyte MD Siuta, Jonathan R., MD ORDERED: AER/DONNA CULTSMR COMMENTS: Specimen Comment Tube #2 Has Specimen Been Obtained/Collected? Y Procedure Result Verified Site GRAM STAIN Final 11/30/16-0750 RESULT MANY WBCs SEEN NO ORGANISMS SEEN CORRECTED REPORT Report corrected on 11/30/16 at 0744 by SHAWNA. NO ORGANISMS SEEN previously reported as MANY GRAM NEGATIVE BACILLI. Phoned corrected report to LISA SUNG on 11/30/16 at 0744 by Jolanta Ramirez. Results were verbalized back to SHAWNA. OR AER/DONNA CULT Preliminary 11/30/16-1017 NO GROWTH TO DATE. Assessment & Plan: Assessment 89 yr old male with b/l pleural effusions, concern for empyema, s/p PleurX catheter placement on 11/29. Preliminary pleural fluid culture reported NGTD. Risk factors for resistant organisms: * [facility] resident * recent admission to [facility] 11/02-11/09 for CHF, influenza A and recent admission to [facility] s/p thoracentesis * treated with Levaquin x 10 days for bronchopneumonia (11/02 admission) Plan Vancomycin + Zosyn for treatment of possible empyema. Vancomycin * Trough level of 16.7 mcg/mL drawn this am is therapeutic. * Goal trough level estimate for empyema: between 15 - 20 mcg/mL. * Continue current dose of 1150 mg (15 mg/kg) IV every 20 hours. * Repeat trough level has been ordered for: . Zosyn * Continue 4.5 g IV every 8 hours for CrCl greater than 20 mL/min. Pharmacy will continue to follow and will adjust dose/frequency as necessary. Thank you
--- NOTE | 2016-11-30 11:11 | SURGERY PROGRESS NOTE ---
DATE: 11/30/2016 DATE: 11/30/2016. SUBJECTIVE: Mr. Dumont was seen today. He is remarkably more awake and alert than he was yesterday. We placed the PleurX catheter in him yesterday. He is much more lucid. He is much better since we drained more than a liter of fluid off last night. He had another 500 this morning; however, there is still fluid in their. For that reason, I went and drained another 350 mL and got some air and his trapped lung is better with the space being smaller. He has very little fluid on the right at this point. Also his A-a gradient is improved. He also sounds better. It is very interesting in that our initial Gram stain showed many gram negative rods and this has changed today. Apparently there were no organisms seen. This is consistent with our findings. This fluid is NOT an exudate. This is a transudate with a pH of 7.33, however the LDH is only 91 and glucose is 147, which would argue against this being an empyema. The pathology is pending. 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 It is my hope hat this will continue to improve. We are going to institute a MIST-2 protocol to see if we can get this lung up a bit better.
--- NOTE | 2016-11-30 19:46 | Hospitalist Progress Note ---
Hospitalist Progress Note Date of Service Nov 30, 2016. Subjective Pt evaluation today including: conversation w/ patient, conversation w/ family , physical exam, chart review, lab review, review of studies, conversation w/ sap enterprise portal consultant, review of inpatient medication list I spoke with Dr. Piedra earlier today regarding this patient in that he has had a professional relationship with him for years. The family and patient are prepared to return home now after being in hospitals and rehabs for the past month. The patients daughter is discussing basically a hospice situation, but with ability to treat "minor" things that could be addressed at home like infection (UTI, pneumonia) but nothing aggressive. It appears this concept is new to this family and the daughter has many questions and frankly is worried about doing the right thing for her dad. She is not sure if she is able to bathe her dad and would like information on agencies that would do that or at least teach her how that can be done in a home setting. Mr. Dumont is in good spirits today and is lucid in conversation, but I do understand that he can go days without waking. He has times of confusion. I am fortunate to be seeing him at this time. He is a pleasant man. Additional Comments: A 10 system review was performed and all were negative. Positives were placed in the subjective section. Objective Vital Signs Date Time Temp Pulse Resp B/P Pulse Ox O2 Delivery O2 Flow Rate FiO2 11/30/16 16:00 Nasal Cannula 3.0 11/30/16 15:51 36.7 71 22 100/62 100 Nasal Cannula 3.0 11/30/16 15:36 95 12 98 Nasal Cannula 3.0 11/30/16 12:00 Nasal Cannula 3.0 11/30/16 11:52 75 12 95 Nasal Cannula 3.0 11/30/16 11:00 36.8 77 18 115/75 100 Nasal Cannula 3.0 11/30/16 08:10 37.0 74 20 117/76 98 Nasal Cannula 3.0 11/30/16 08:00 Nasal Cannula 3.0 11/30/16 07:04 77 12 98 Nasal Cannula 3.0 11/30/16 04:00 36.8 102 20 110/67 94 Nasal Cannula 3.0 11/30/16 04:00 Nasal Cannula 3.0 11/30/16 00:00 36.9 75 20 101/63 97 Nasal Cannula 3.0 11/30/16 00:00 Nasal Cannula 3.0 11/29/16 20:00 Nasal Cannula 3.0 11/29/16 19:38 36.3 89 16 108/64 95 Nasal Cannula 3.0 Physical Exam Notes: GEN: Awake, alert. Not in acute distress HEENT: Tm's intact, no inflammation, EOMI, PERRLA, MMM Neck: Soft, supple Lungs: decreased breath sounds at the bases b/l. crackles mostly on the right side. Heart: REG, nrl S1S2 without murmurs, rubs or gallops Abdomen: Soft, NT, ND, + BS EXT: No C/C/E NEURO: CN's II-XII grossly intact, non-focal Skin: warm, dry, no rashes. multiple bruises. PSYCH: pleasant, cooperative. Laboratory Results Last 24 Hours Test 11/29/16 20:40 11/30/16 00:01 11/30/16 05:23 11/30/16 06:32 Bedside Glucose 167 mg/dl 150 mg/dl 120 mg/dl Prothrombin Time 14.2 SECONDS Prothromb Time International Ratio 1.3 Sodium Level 146 mmol/L Potassium Level 4.3 mmol/L Chloride Level 103 mmol/L Carbon Dioxide Level 38 mmol/L Anion Gap 5.0 mmol/L Blood Urea Nitrogen 19 mg/dl Creatinine 1.30 mg/dl Est Creatinine Clear Calc Drug Dose 40.8 ml/min Estimated GFR () 56.5 Estimated GFR (Non- 48.7 BUN/Creatinine Ratio 14.8 Random Glucose 119 mg/dl Calcium Level 8.3 mg/dl Magnesium Level 2.3 mg/dl Vancomycin Level Trough 16.7 mcg/ml Test 11/30/16 11:08 11/30/16 15:54 Bedside Glucose 187 mg/dl 186 mg/dl Assessment and Plan 1) acute/chronic diastolic CHF - focus is now to get patient home as quickly and safely as possible. 2) Pleural effusions with right sided Pleurx placed. With todays information, we are leaning against this as an empyema. 3) encephalopathy - My evaluation today argues this is resolved. 4) A. fib - warfarin on hold due to pleurX. Now I argue that we do not need to return to using full anticoagulation. 5) Anemia - chronic 6) Chronic respiratory failure - multifactorial. Will need oxygen and nebs at home. 7) CKD stage 3 Focus is now on going home. I will ask interactive digital media specialist to talk with daughter and/or patient about what services they are able to provide. We can start planning for discharge, I know he will need a hospital bed, other equipment if needed or identified I will happily write for. I am working through the next 3 days, it would be ideal if arrangements can be mobilized so that there is continuity for transition to home.
[2016-11-30] MEDS: FINASTERIDE 5 MG TAB PO SCH (20:29)
[2016-11-30] MEDS: ATORVASTATIN 20 MG TAB PO SCH (20:29)
[2016-11-30] MEDS: INSULIN GLARGINE SOLOSTAR 100 UNITS/ML 3 ML PEN SC SCH (20:30)
[2016-12-01] VITALS (8 sets, daily range): BP systolic 92–117; BP diastolic 56–76; PULSE 67–101; TEMP 36.6–36.8; O2SAT 97–100
[2016-12-01] MEDS: VANCOMYCIN INJ 1,150 MG in SODIUM CHLORIDE 0.9% 250ML 250 ML IV SCH ×2 (02:15→20:40)
[2016-12-01] MEDS: PIPERACILL/TAZOBAC IV 4.5 GM in DEXTROSE 5% 100ML 100 ML IV SCH ×3 (06:35→20:40)
[2016-12-01] MEDS: INSULIN ASPART 100 UNITS/ML 3 ML PEN SC SCH ×5 (06:45→20:43)
[2016-12-01] MEDS: ALBUT/IPRATROP 3MG/0.5MG NEB 3 ML VIAL INH SCH ×4 (06:57→20:00)
[2016-12-01 07:04] LABS: INR 1.2 (0.9-1.1); PROTHROMBIN TIME (PATIENT) 13.4 SECONDS (9.0-12.0)
--- NOTE | 2016-12-01 07:59 | SURGERY PROGRESS NOTE ---
DATE: 12/01/2016 Mr. Dumont was seen today. The family is going to take him home and manage this pleural effusion. He is much better since we drained him. His family is very happy that he had a very quiet night. He has been struggling from a respiratory standpoint and I think the relief from draining his right pleural effusion has helped quite a bit. We drained 750 mL today. His x-ray shows he does have a trapped lung that appears to be getting better. My hope is his lung will continue to expand. If it does not, he may have this PleurX in for an extended period of time. I had a long discussion with the patient's son and daughter about how we are going to do this today. He does have better aeration in his right base than he did before the catheter was placed.
[2016-12-01] MEDS: BOOST GLUCOSE CONTROL PO SCH ×2 (08:15→17:22)
[2016-12-01] MEDS: DOCUSATE SODIUM 100 MG CAP PO SCH ×2 (08:21→20:23)
[2016-12-01] MEDS: ISOSORBIDE MONONITRATE 30 MG TABCR PO SCH (08:21)
[2016-12-01] MEDS: DILTIAZEM HCL 180 MG CAPCR PO SCH (08:21)
[2016-12-01] MEDS: POTASSIUM CHLORIDE 20 MEQ TABCR PO SCH ×2 (08:22→20:24)
[2016-12-01] MEDS: RANITIDINE HCL 150 MG TAB PO SCH (08:22)
[2016-12-01] MEDS: TAMSULOSIN HCL 0.4 MG CAP PO SCH (08:22)
[2016-12-01] MEDS: METOPROLOL SUCC 25MG EXT REL TAB PO SCH (08:22)
[2016-12-01] MEDS: MAGNESIUM OXIDE 400 MG TAB PO SCH ×2 (08:22→20:24)
[2016-12-01] MEDS: LACTULOSE SYRUP 30 GM/45 ML UDP PO SCH ×2 (08:22→20:23)
[2016-12-01] MEDS: ACETAMINOPHEN 325 MG TAB PO PRN (08:25)
--- NOTE | 2016-12-01 08:31 | DIAGNOSTIC IMAGING REPORT ---
CHEST ONE VIEW PORTABLE CLINICAL HISTORY: pleural effusion dyspnea COMPARISON STUDY: 11/30/2016 FINDINGS: Slightly progressive parenchymal infiltrative changes bilaterally. No significant pneumothorax. Pleural fluid appears to have filled the potential space of the right base. There is a right basilar drainage catheter. IMPRESSION: Right basilar drainage catheter with pleural fluid filling the potential space site of the previously described in the thorax. Congestive failure slightly progressive from the prior exam Electronically signed by: Bora Osullivan M.D. 12/01/2016 8:30 AM Dictated Date/Time: 12/01/2016 8:13 AM
[2016-12-01] MEDS ORDERED: NURSING VERBAL MED ORDER ONE ×2 (11:15→20:00)
[2016-12-01] MEDS ORDERED: ALUMINUM/MAGNESIUM/SIMETH (MAALOX MAX) 30 ML UDC PO PRN (11:30)
[2016-12-01] MEDS ORDERED: CHLORASEPTIC 1.4% SOLN 180 ML BTL MT PRN (11:30)
--- NOTE | 2016-12-01 12:52 | Palliative Care Consultation ---
Consultation Date of Consultation: Dec 01, 2016. Requesting Physician: Dr. Rod Attending Physician: Dr. Rod Reason for Consultation: Goals of care History of Present Illness This 89 year old male patient presented to [facility] four days ago from [facility] with c/o empyema. Per record, the patient was hospitalized here at [facility] from 11/02-11/10 with influenza and pneumonia. He was discharged to [facility] for rehab until he had a syncopal episode in which the son said it took him 15 minutes to regain full consciousness. He was sent to [place] ED, CT of the chest showed bilateral pleural effusions and possible empyema. He was sent here for further evaluation. Dr. Holman saw the patient, placed a right sided pleur-x catheter two days ago, and drained 1450ml of orange-tinged serous fluid. The fluid was sent for pathology which is still pending. Patient also has a history of diastolic heart failure, CAD, CKD, and other things listed below. His family states that his functional status has been declining, he hasn' t been eating or drinking much, and his overall condition is worsening. They are interested in taking the patient home on hospice. Palliative care consulted to establish goals of care and discuss hospice. I met with the patient, his son Bora, and daughter/POA, Michelle in room 457-2. The patient was awake and alert, oriented to person, place and time but not really to the situation. Patient stated that he wants to be cared for at home and to try to stay out of the hospital. Family has a pretty good understanding of patient's illness and know that his prognosis may be poor. Prior to his hospitalization in October the patient was fairly independent with his care and was able to ambulate with a walker. He does have either a living will or advance directive that his daughter is going to locate and bring a copy of. The patient would not want aggressive medical care if he has end-stage illness. However, the family and patient would like to see if he can improve at all in the next couple days after the pleur-x was placed. If patient is able to tolerate therapy and seems to be improving, they want to have home health. If he does not improve or does not tolerate therapy well, they would like to go with hospice. They are calling agencies to set up private pay caregivers so that someone will be with the patient 04/04. I discussed a POLST form and left it in the room as the family would like to discuss it before filling it out. Patient was a little drowsy during conversation and fell asleep frequently. He states he is comfortable at this time. His pain is a 0/10, however right before I came into the room he was c/o pain at the pleur-x insertion site. He then denied any pain or discomfort. Past Medical/Surgical History Medical History: CAD Diastolic heart failure CKD BPH GERD HLD DM Chronic hypoxic respiratory failure Atrial fibrillation Pleural effusions Surgical History: Bilateral thoracenteses Bilateral carotid endarterectomies Social History Smoking Status: Never Smoker History of Alcohol Use: No Drug Use: none Marital Status: Occupation Status: retired Review of Systems Constitutional: + problem reported (decreased appetite), + weakness ENT: + problem reported (mouth pain, difficulty chewing) Respiratory: + dyspnea on exertion, No dyspnea at rest Cardiac: No chest pain, No edema Abdomen: No nausea, No pain, No vomiting Male : No problem reported (has Jiménez catheter) Psychiatric: No anxiety Allergies Coded Allergies: No Known Allergies (Verified , 11/02/16) Medications Current Inpatient Medications Medications (Trade) Dose Ordered Sig/Vickey Route Start Time Stop Time Status Last Admin Dose Admin Atorvastatin Calcium (Lipitor Tab) 20 mg HS PO 11/28/16 21:00 12/28/16 20:59 11/30/16 20:29 20 MG Diltiazem HCl (Cardizem Cd Cap) 180 mg QAM PO 11/28/16 09:00 12/28/16 08:59 12/01/16 08:21 180 MG Docusate Sodium (coLACE CAP) 100 mg BID PO 11/28/16 09:00 12/28/16 08:59 12/01/16 08:21 100 MG Finasteride (Proscar Tab) 5 mg HS PO 11/28/16 21:00 12/28/16 20:59 11/30/16 20:29 5 MG Furosemide (Lasix Tab) 40 mg QAM PO 11/28/16 09:00 12/28/16 08:59 Future Hold 11/28/16 08:36 40 MG Insulin Glargine (Lantus Solostar Pen) 10 unit BID SC 11/28/16 09:00 12/28/16 08:59 Future Hold Isosorbide Mononitrate (Imdur Ext Rel Tab) 30 mg QAM PO 11/28/16 09:00 12/28/16 08:59 12/01/16 08:21 30 MG Magnesium Oxide (Mag-Ox Tab) 400 mg BID PO 11/28/16 09:00 12/28/16 08:59 12/01/16 08:22 400 MG Metoprolol Succinate (Toprol Xl Tab) 25 mg DAILY PO 11/28/16 09:00 12/28/16 08:59 12/01/16 08:22 25 MG Ranitidine HCl (zANTac TAB) 150 mg DAILY PO 11/28/16 09:00 12/28/16 08:59 12/01/16 08:22 150 MG Tamsulosin HCl (Flomax Cap) 0.4 mg DAILY PO 11/28/16 09:00 12/28/16 08:59 12/01/16 08:22 0.4 MG Tramadol HCl (Ultram Tab) 50 mg Q8H PRN PO 11/27/16 23:30 12/27/16 23:29 Albuterol Sulfate 2.5 mg 2.5 mg Q4H PRN INH 11/27/16 23:30 12/27/16 23:29 Piperacillin Sod/ Tazobactam Sod/ Dextrose (Zosyn Iv/D5 100ml) 120 ml @ 30 mls/hr Q8H IV 11/28/16 06:00 12/05/16 05:59 12/01/16 06:35 30 MLS/HR Acetaminophen (Tylenol Tab) 650 mg Q4H PRN PO 11/27/16 23:30 12/27/16 23:29 12/01/16 08:25 650 MG Magnesium Hydroxide (Milk Of Magnesia Susp) 30 ml Q12H PRN PO 11/27/16 23:30 12/27/16 23:29 Ondansetron HCl (Zofran Inj) 4 mg Q6H PRN IV 11/27/16 23:30 12/27/16 23:29 Morphine Sulfate (MoRPHine SULFATE INJ) 2 mg Q30M PRN IV 11/27/16 23:30 12/11/16 23:29 Polyethylene (Miralax Powder Packet) 17 gm DAILY PRN PO 11/27/16 23:30 12/27/16 23:29 Insulin Aspart (novoLOG ASPART) SLIDING SCALE G... Q6 SC 11/28/16 00:00 12/28/16 00:00 11/30/16 12:35 1 UNITS Albuterol/ Ipratropium (Duoneb) 3 ml QIDR INH 11/28/16 08:00 12/28/16 07:59 12/01/16 06:57 3 ML Vancomycin HCl (Consult) 1 ea UD PRN N/A 11/27/16 23:45 12/27/16 23:44 Piperacillin Sod/ Tazobactam Sod (Consult) 1 ea UD PRN N/A 11/27/16 23:45 12/27/16 23:44 Glucose (Glucose 40% Gel) 15-30 GRAMS 15 GRAMS... UD PRN PO 11/27/16 23:45 12/27/16 23:44 Glucose (Glucose Chew Tab) 4-8 Tablets 4 Tabl... UD PRN PO 11/27/16 23:45 12/27/16 23:44 Dextrose (Dextrose 50% 50ML Syringe) 25-50ML OF 50% DW IV FOR... UD PRN IV 11/27/16 23:45 12/27/16 23:44 11/28/16 06:14 25 ML Glucagon (Glucagon Inj) 1 mg UD PRN SQ 11/27/16 23:45 12/27/16 23:44 Lactulose (Chronulac Syrup) 30 gm BID PO 11/28/16 09:00 12/28/16 08:59 12/01/16 08:22 30 GM Warfarin Sodium 5 mg 5 mg DAILY@1600 PO 11/28/16 16:00 12/28/16 15:59 Future Hold Vancomycin HCl/ Sodium Chloride (Vancomycin Inj/ Nss 250ml) 273 ml @ 125 mls/hr Q20H IV 11/28/16 14:00 12/05/16 00:59 12/01/16 02:15 125 MLS/HR Potassium Chloride (Klor-Con Tab) 20 meq BID PO 11/28/16 16:00 12/28/16 15:59 12/01/16 08:22 20 MEQ Insulin Glargine (Lantus Solostar Pen) 5 unit HS SC 11/29/16 21:00 12/29/16 20:59 11/30/16 20:30 5 UNIT Enteral Nutritional Formula (Boost Glucose Control) 1 can BIDM PO 11/29/16 16:45 12/29/16 16:44 12/01/16 08:15 1 CAN Phenol (Chloraseptic 1.4% [place]) 1 sprays Q2H PRN MT 12/01/16 11:30 12/31/16 11:29 Al Hydrox/Mg Hydrox/Simethicone (Maalox Max Susp) 15 ml Q2H PRN PO 12/01/16 11:30 12/31/16 11:29 Physical Exam Date Time Temp Pulse Resp B/P Pulse Ox O2 Delivery O2 Flow Rate FiO2 12/01/16 10:12 36.8 87 18 117/76 97 Nasal Cannula 2.5 12/01/16 09:25 36.6 99 20 98 3.0 12/01/16 09:00 36.6 99 20 108/71 98 Nasal Cannula 3.0 12/01/16 08:00 100 Nasal Cannula 3.0 12/01/16 06:57 101 12 100 Nasal Cannula 3.0 12/01/16 04:34 Nasal Cannula 3.0 12/01/16 04:15 36.8 80 117/73 97 Nasal Cannula 3.0 12/01/16 00:17 Nasal Cannula 3.0 11/30/16 23:53 36.8 92 18 137/75 93 Nasal Cannula 3.0 11/30/16 20:58 Nasal Cannula 3.0 11/30/16 19:37 36.7 63 18 112/57 100 Nasal Cannula 3.0 11/30/16 16:00 Nasal Cannula 3.0 11/30/16 15:51 36.7 71 22 100/62 100 Nasal Cannula 3.0 11/30/16 15:36 95 12 98 Nasal Cannula 3.0 11/30/16 12:00 Nasal Cannula 3.0 11/30/16 11:52 75 12 95 Nasal Cannula 3.0 General Appearance: no apparent distress, + thin, + pertinent finding ( chronically ill appearing) Neck: no JVD Respiratory: no respiratory distress, no accessory muscle use, + decreased breath sounds (RLL diminished), + pertinent finding (nasal cannula) Cardiovascular: regular rate, rhythm, no edema, no murmur, + normal peripheral pulses (weak pedal pulses) Abdomen: normal bowel sounds, non tender, soft Musculoskeletal: pertinent finding (deconditioned) Neurologic/Psychiatric: alert (somewhat tired/drowsy. fell asleep several times during conversation), oriented x 3 (some forgetfulness) Skin: + pertinent finding (dark discoloration of skin on ankles/shins ) Laboratory Results Last 24 Hours Test 11/30/16 15:54 11/30/16 20:26 12/01/16 00:07 12/01/16 06:24 Bedside Glucose 186 mg/dl 179 mg/dl 149 mg/dl Prothrombin Time 13.4 SECONDS Prothromb Time International Ratio 1.2 Test 12/01/16 06:44 Bedside Glucose 124 mg/dl Assessment & Plan Palliative Performance Scale: 40 % (mainly in bed, needs considerable assistance, decreased appetite) Problem list: Weakness/ambulatory dysfunction Pleural effusions s/p right pleur-x catheter placement. Empyema less likely Anemia Chronic respiratory failure Goals of care (Z51.5) Palliative care plan: Discussed with patient, family and Dr. Rod. -Goal is for patient to go home and he will have caregivers and family to provide 24/7 care. -Depending on if there is any improvement in functional status in the next couple days, either home with home health and in-home therapy and eventually transitioning to hospice vs. home with hospice now. I fully explained hospice and what they offer; the family is leaning in that direction. They are going to talk to the physical therapist today and see how the patient is doing. -POLST form to be done once family has been able to discuss. -Has Tramadol 50mg PO Q8h PRN but he has not used any doses. -To have oxygen and neb treatments at home. Thank you kindly for this consult. I will follow as needed.
--- NOTE | 2016-12-01 18:05 | Hospitalist Progress Note ---
Hospitalist Progress Note Date of Service Dec 01, 2016. Subjective Pt evaluation today including: conversation w/ patient, conversation w/ family , physical exam, chart review, lab review, review of studies, review of inpatient medication list Patient had drainage from PluerX cath today which caused some moderate discomfort as, I presume, the trapped lung pulls on the pleura in attempt to expand. The patient and family are hesitant to use narcotic pain medication in fear of sedation or confusion. Though that is a reasonable concern, he does breath better with the fluid drained and I explained that we could pre-dose with pain medication to make the drainage less painful. They will discuss and let me know. He has thought of stopping the drainage process due to pain, but I would think his breathing would worsen dramatically and in short order without. I suspect the family is hoping for some further improvement to take the patient home and use nursing services. Unfortunately, I feel he is at his best currently and I do not anticipate any further improvement in condition or physical abilities. Additional Comments: + pleuritic pain s/p PleurX drainage. + pain in the roof of mouth where dentures had caused local irritation. + chronic SOB, but this has been much improved since fluid is being daily removed from right lung. All other ROS from a 10 system questioning were negative. Objective Vital Signs Date Time Temp Pulse Resp B/P Pulse Ox O2 Delivery O2 Flow Rate FiO2 12/01/16 16:02 36.7 84 18 92/56 97 93/56 103/66 12/01/16 16:00 Nasal Cannula 3.0 12/01/16 15:31 67 16 98 Nasal Cannula 2.0 12/01/16 10:12 36.8 87 18 117/76 97 Nasal Cannula 2.5 12/01/16 09:25 36.6 99 20 98 3.0 12/01/16 09:00 36.6 99 20 108/71 98 Nasal Cannula 3.0 12/01/16 08:00 100 Nasal Cannula 3.0 12/01/16 06:57 101 12 100 Nasal Cannula 3.0 12/01/16 04:34 Nasal Cannula 3.0 12/01/16 04:15 36.8 80 117/73 97 Nasal Cannula 3.0 12/01/16 00:17 Nasal Cannula 3.0 11/30/16 23:53 36.8 92 18 137/75 93 Nasal Cannula 3.0 11/30/16 20:58 Nasal Cannula 3.0 11/30/16 19:37 36.7 63 18 112/57 100 Nasal Cannula 3.0 Physical Exam Notes: GEN: Awake, alert. In mild distress from pain. HEENT: Tm's intact, no inflammation, EOMI, PERRLA, MMM Neck: Soft, supple Lungs: decreased breath sounds at the bases b/l. minimal b/l exp wheezes. Heart: IRREG, nrl S1S2 without murmurs, rubs or gallops Abdomen: Soft, NT, ND, + BS EXT: No C/C/E NEURO: CN's II-XII grossly intact, non-focal Skin: warm, dry, no rashes Laboratory Results Last 24 Hours Test 11/30/16 20:26 12/01/16 00:07 12/01/16 06:24 12/01/16 06:44 Bedside Glucose 179 mg/dl 149 mg/dl 124 mg/dl Prothrombin Time 13.4 SECONDS Prothromb Time International Ratio 1.2 Test 12/01/16 11:34 12/01/16 16:34 Bedside Glucose 183 mg/dl 176 mg/dl Assessment and Plan 1) acute/chronic diastolic CHF - suspect patient is compensated to the degree that we are able to do given his overall conditions. 2) Pleural effusions with right sided Pleurx - draining daily. 3) Encephalopathy - Resolved. 4) A. fib - warfarin on hold due to pleurX. I plan no further anticoagulation. 5) Anemia - chronic and stable. 6) Chronic respiratory failure - multifactorial. Will need oxygen and nebs at home. 7) CKD stage 3 Daughter was given information today and spoke with physical therapy, palliative care, and social service. I will talk with the patient and daughter tomorrow and see what direction they plan to go.
[2016-12-01] MEDS: ATORVASTATIN 20 MG TAB PO SCH (20:25)
[2016-12-01] MEDS: FINASTERIDE 5 MG TAB PO SCH (20:25)
[2016-12-01] MEDS: INSULIN GLARGINE SOLOSTAR 100 UNITS/ML 3 ML PEN SC SCH (20:46)
[2016-12-02] VITALS: O2SAT 98
[2016-12-02 00:06] VITALS: BP 118/79; PULSE 82; TEMP 36.6; O2SAT 90
[2016-12-02] MEDS: ACETAMINOPHEN 325 MG TAB PO PRN ×2 (00:37→05:12)
[2016-12-02] MEDS ORDERED: NURSING VERBAL MED ORDER ONE ×3 (02:00→17:15)
[2016-12-02] MEDS: PIPERACILL/TAZOBAC IV 4.5 GM in DEXTROSE 5% 100ML 100 ML IV SCH (05:12)
[2016-12-02 06:44] LABS: BASO % 1.7 %; BASO ABS # 0.07 K/uL (0-0.2); EOS % 7.1 %; HEMATOCRIT 29.7 % (42-52); IG% 0.5 %; LYMPH % 12.5 %; LYMPH ABS # 0.51 K/uL (1.2-3.4); MEAN CELL VOLUME 93.7 fL (80-100); MEAN CORPUSCULAR HEMOGLOBIN 27.4 pg (25-34); MEAN CORPUSCULAR HGB CONC 29.3 g/dl (32-36); MEAN PLATELET VOLUME 9.1 fL (7.4-10.4); MONO % 14.9 %; NEUT % 63.3 %; PLATELET COUNT 190 K/uL (130-400); RED BLOOD COUNT 3.17 M/uL (4.7-6.1); WHITE BLOOD COUNT 4.09 K/uL (4.8-10.8)
[2016-12-02 07:16] LABS: BUN/CREATININE RATIO 15.5 (10-20); CALCIUM 8.3 mg/dl (8.5-10.1); CREATININE 1.1 mg/dl (0.60-1.40); POTASSIUM 4.8 mmol/L (3.5-5.1)
[2016-12-02] MEDS: ALBUT/IPRATROP 3MG/0.5MG NEB 3 ML VIAL INH SCH (07:41)
[2016-12-02 08:03] VITALS: BP 114/76; PULSE 74; TEMP 36.6; O2SAT 91
[2016-12-02 08:19] LABS: ANISOCYTOSIS PRESENT; COMPLETE YES; OVALOCYTES 1+; POIKILOCYTOSIS PRESENT; POLYCHROMASIA 1+
[2016-12-02] MEDS: INSULIN ASPART 100 UNITS/ML 3 ML PEN SC SCH ×3 (08:38→16:30)
[2016-12-02] MEDS: BOOST GLUCOSE CONTROL PO SCH ×2 (08:38→08:53)
[2016-12-02] MEDS: MAGNESIUM OXIDE 400 MG TAB PO SCH (08:47)
[2016-12-02] MEDS: TRAMADOL HCL 50 MG TAB PO PRN ×2 (08:47→18:45)
[2016-12-02] MEDS: TAMSULOSIN HCL 0.4 MG CAP PO SCH (08:48)
[2016-12-02] MEDS: POTASSIUM CHLORIDE 20 MEQ TABCR PO SCH (08:48)
[2016-12-02] MEDS: METOPROLOL SUCC 25MG EXT REL TAB PO SCH (08:49)
[2016-12-02] MEDS: DOCUSATE SODIUM 100 MG CAP PO SCH (08:49)
[2016-12-02] MEDS: ISOSORBIDE MONONITRATE 30 MG TABCR PO SCH (08:49)
[2016-12-02] MEDS: RANITIDINE HCL 150 MG TAB PO SCH (08:49)
[2016-12-02] MEDS: DILTIAZEM HCL 180 MG CAPCR PO SCH (08:50)
[2016-12-02] MEDS: LACTULOSE SYRUP 30 GM/45 ML UDP PO SCH (08:53)
--- NOTE | 2016-12-02 11:22 | DIAGNOSTIC IMAGING REPORT ---
CHEST ONE VIEW PORTABLE HISTORY: pleural effusion COMPARISON: Chest 12/01/2016. FINDINGS: Right basilar drainage catheter is unchanged in position. Slight decrease in size in the small right pleural effusion. The small left pleural effusion persists. No pneumothorax. The heart remains enlarged. There are postoperative changes. Pulmonary edema pattern has slightly improved. IMPRESSION: 1. Small right pleural effusion has slightly decreased in size. The right basilar pleural drainage catheter is again noted. 2. Slight improvement in the pulmonary edema pattern. 3. Small left pleural effusion persist. Electronically signed by: Luis A Bhandari M.D. 12/02/2016 11:21 AM Dictated Date/Time: 12/02/2016 11:19 AM
--- NOTE | 2016-12-02 11:38 | Palliative Care Progress Note ---
Palliative Care Progress Note Date of Service Dec 02, 2016. Subjective Pt evaluation today including: conversation w/ patient, conversation w/ family , physical exam (family requested for patient to not have physical exam at this time for his comfort), conversation w/ digital marketing consultant Pain: denies PO Intake: minimal today Voiding: robles catheter in place -Had a bad night of agitation and not much sleep -More lethargic and disoriented today. Very lethargic and unable to stay awake for conversation or ROS while I was in the room. -Had a long discussion with patient's daughter/POA, Michelle, and patient's son, Bora. Given the patients overall decline they have made the decision to pursue comfort measures only. See plan below. Review of Systems unable to obtain. Objective Vital Signs Date Time Temp Pulse Resp B/P Pulse Ox O2 Delivery O2 Flow Rate FiO2 12/02/16 08:03 36.6 74 18 114/76 91 2.0 12/02/16 08:00 Room Air 12/02/16 00:06 36.6 82 18 118/79 90 2.0 12/02/16 00:00 98 Nasal Cannula 3.0 12/01/16 16:02 36.7 84 18 92/56 97 93/56 103/66 12/01/16 16:00 Nasal Cannula 3.0 12/01/16 15:31 67 16 98 Nasal Cannula 2.0 Physical Exam General Appearance: no apparent distress, + thin, + pertinent finding ( chronically ill appearing) Neck: no JVD Respiratory/Chest: no respiratory distress, no accessory muscle use, + pertinent finding (nasal cannula) Cardiovascular: no edema, + pertinent finding (regular rate noted in documented VS) Abdomen: + pertinent finding (did not assess abdomen) Neurologic/Psychiatric: + disoriented, + pertinent finding (lethargic) Laboratory Results Last 24 Hours Test 12/01/16 11:34 12/01/16 16:34 12/01/16 20:32 12/02/16 06:23 Bedside Glucose 183 mg/dl 176 mg/dl 128 mg/dl White Blood Count 4.09 K/uL Red Blood Count 3.17 M/uL Hemoglobin 8.7 g/dL Hematocrit 29.7 % Mean Corpuscular Volume 93.7 fL Mean Corpuscular Hemoglobin 27.4 pg Mean Corpuscular Hemoglobin Concent 29.3 g/dl Platelet Count 190 K/uL Mean Platelet Volume 9.1 fL Neutrophils (%) (Auto) 63.3 % Lymphocytes (%) (Auto) 12.5 % Monocytes (%) (Auto) 14.9 % Eosinophils (%) (Auto) 7.1 % Basophils (%) (Auto) 1.7 % Neutrophils # (Auto) 2.59 K/uL Lymphocytes # (Auto) 0.51 K/uL Monocytes # (Auto) 0.61 K/uL Eosinophils # (Auto) 0.29 K/uL Basophils # (Auto) 0.07 K/uL RDW Standard Deviation 69.8 fL RDW Coefficient of Variation 20.6 % Immature Granulocyte % (Auto) 0.5 % Immature Granulocyte # (Auto) 0.02 K/uL Polychromasia 1+ Poikilocytosis PRESENT Anisocytosis PRESENT Ovalocytes 1+ Sodium Level 143 mmol/L Potassium Level 4.8 mmol/L Chloride Level 102 mmol/L Carbon Dioxide Level 38 mmol/L Anion Gap 3.0 mmol/L Blood Urea Nitrogen 17 mg/dl Creatinine 1.10 mg/dl Est Creatinine Clear Calc Drug Dose 49.9 ml/min Estimated GFR () 69.1 Estimated GFR (Non- 59.6 BUN/Creatinine Ratio 15.5 Random Glucose 130 mg/dl Calcium Level 8.3 mg/dl Test 12/02/16 07:29 Bedside Glucose 134 mg/dl Assessment and Plan Problem list: Weakness/ambulatory dysfunction Lethargy/altered mental status Pleural effusions s/p right pleur-x catheter placement. Empyema less likely Anemia Chronic respiratory failure Comfort measures only Goals of care (Z51.5) Palliative care plan: Discussed with patient's daughter/SANGEETAA, Michelle, patient's son, Bora, and Dr. Rod. -Comfort measures only: family is okay with continuing to drain pleur-x catheter for comfort with Dr. Holman's recommendations/orders. -Continue checking blood sugars and giving insulin for now as long as patient is awake and taking PO. -Discontinue IV zosyn and vancomycin. -Discontinue Lipitor. -Start Haldol 1mg PO Q6h PRN agitation. -Discontinue current order for morphine and start Roxanol 5mg PO Q3h PRN pain or SOB. -Family requested to continue Proscar. -Discharge planning uncertain. If patient continues to rapidly decline, may not be stable for transfer to home. If patient is more awake tomorrow or stable for transfer, goal will be to go home with hospice. Palliative Performance Scale: 20 % Discharge planning: uncertain
[2016-12-02] MEDS ORDERED: HALOPERIDOL 1 MG TAB PO PRN (11:45)
--- NOTE | 2016-12-02 12:10 | SURGERY PROGRESS NOTE ---
DATE: 12/02/2016 SUBJECTIVE: Mr. Dumont was seen today. He is lethargic today. He is really not waking up. He was drained for 600 mL of fluid this morning. His x-ray actually looks a bit better. He does have pain when we drained him. So his daughter has asked if we could refrain from making that hurt. At any rate, I think from a symptom standpoint, he is definitely better with the Pleurx catheter. He does not have an empyema. Right now the goal is to get him home with hospice.
[2016-12-02] MEDS: MoRPHine SULFATE 5 MG/0.25 ML UDP PO PRN (15:41)
[2016-12-02] MEDS ORDERED: VANCOMYCIN TROUGH ONE (17:30)
--- NOTE | 2016-12-02 20:09 | Hospitalist Progress Note ---
Hospitalist Progress Note Date of Service Dec 02, 2016. Subjective Pt evaluation today including: conversation w/ family, physical exam, chart review, lab review, review of studies, review of inpatient medication list Patient had agitation through the previous night and since has been very weak and somnolent. The family decided to treat for comfort measures. Additional Comments: Deferred due to somnolent state. Objective Vital Signs Date Time Temp Pulse Resp B/P Pulse Ox O2 Delivery O2 Flow Rate FiO2 12/02/16 16:39 Nasal Cannula 3.0 12/02/16 08:03 36.6 74 18 114/76 91 2.0 12/02/16 08:00 Room Air 12/02/16 00:06 36.6 82 18 118/79 90 2.0 12/02/16 00:00 98 Nasal Cannula 3.0 Physical Exam Notes: Lungs: Few scattered rhonchi Heart: REG, nrl S1S2 no murmur. Abdomen: Soft, NT, ND, + BS EXT: No C/C/E Skin: warm, dry, no rashes Laboratory Results Last 24 Hours Test 12/01/16 20:32 12/02/16 06:23 12/02/16 07:29 Bedside Glucose 128 mg/dl 134 mg/dl White Blood Count 4.09 K/uL Red Blood Count 3.17 M/uL Hemoglobin 8.7 g/dL Hematocrit 29.7 % Mean Corpuscular Volume 93.7 fL Mean Corpuscular Hemoglobin 27.4 pg Mean Corpuscular Hemoglobin Concent 29.3 g/dl Platelet Count 190 K/uL Mean Platelet Volume 9.1 fL Neutrophils (%) (Auto) 63.3 % Lymphocytes (%) (Auto) 12.5 % Monocytes (%) (Auto) 14.9 % Eosinophils (%) (Auto) 7.1 % Basophils (%) (Auto) 1.7 % Neutrophils # (Auto) 2.59 K/uL Lymphocytes # (Auto) 0.51 K/uL Monocytes # (Auto) 0.61 K/uL Eosinophils # (Auto) 0.29 K/uL Basophils # (Auto) 0.07 K/uL RDW Standard Deviation 69.8 fL RDW Coefficient of Variation 20.6 % Immature Granulocyte % (Auto) 0.5 % Immature Granulocyte # (Auto) 0.02 K/uL Polychromasia 1+ Poikilocytosis PRESENT Anisocytosis PRESENT Ovalocytes 1+ Sodium Level 143 mmol/L Potassium Level 4.8 mmol/L Chloride Level 102 mmol/L Carbon Dioxide Level 38 mmol/L Anion Gap 3.0 mmol/L Blood Urea Nitrogen 17 mg/dl Creatinine 1.10 mg/dl Est Creatinine Clear Calc Drug Dose 49.9 ml/min Estimated GFR () 69.1 Estimated GFR (Non- 59.6 BUN/Creatinine Ratio 15.5 Random Glucose 130 mg/dl Calcium Level 8.3 mg/dl Assessment and Plan Comfort care for patient with end stage CAD with acute/chronic diastolic CHF - Palliative care ordered Haldol and Roxanol prn - meds that do not serve as comfort measure were d/c'd - Stopped blood draws and checking sugars - May continue robles unless becomes problematic - continue daily PleurX drainage unless patient/family refuse due to pain as this does provide comfort from breathing standpoint.
[2016-12-02] MEDS: FINASTERIDE 5 MG TAB PO SCH (21:42)
[2016-12-03] MEDS: MoRPHine SULFATE 5 MG/0.25 ML UDP PO PRN ×2 (05:35→09:11)
[2016-12-03] MEDS: RANITIDINE HCL 150 MG TAB PO SCH (08:57)
[2016-12-03] MEDS: ISOSORBIDE MONONITRATE 30 MG TABCR PO SCH (08:57)
[2016-12-03] MEDS: METOPROLOL SUCC 25MG EXT REL TAB PO SCH (08:57)
[2016-12-03] MEDS: DILTIAZEM HCL 180 MG CAPCR PO SCH (08:58)
[2016-12-03] MEDS: TAMSULOSIN HCL 0.4 MG CAP PO SCH (08:59)
[2016-12-03 09:00] VITALS: BP 123/78; PULSE 116
--- NOTE | 2016-12-03 12:53 | SURGERY PROGRESS NOTE ---
DATE: 12/03/2016 DATE: 12/03/2016. Mr. Dumont is a bit more alert today. He is still on 3 liters of O2. I had a long talk with the patient's daughter this morning. He was drained for 450 mL today. The family has decided to make him comfort measures only. I think we should continue draining the PleurX as it does help his breathing. At this point, I would not do anything different.
[2016-12-03 14:23] LABS: NEO FLOW LYMPH/LEUK STND SEE NEO MISC
--- NOTE | 2016-12-03 20:03 | Hospitalist Progress Note ---
Hospitalist Progress Note Date of Service Dec 03, 2016. Subjective Pt evaluation today including: physical exam, chart review, lab review, review of studies, review of inpatient medication list Patient is confused today, but was awake when I visited. Does not appear to have discomfort at this time. Additional Comments: unobtainable. Objective Vital Signs Date Time Temp Pulse Resp B/P Pulse Ox O2 Delivery O2 Flow Rate FiO2 12/03/16 09:00 116 123/78 12/03/16 08:00 Room Air 12/03/16 00:00 Nasal Cannula 3.0 Physical Exam Notes: Lungs: + coarse sounds Heart: Reg Abd: Soft Ext: no edema Neuro: confused, moving all 4 Laboratory Results Last 24 Hours Test 12/02/16 20:11 Bedside Glucose 128 mg/dl Assessment and Plan Comfort care for patient with end stage CAD with acute/chronic diastolic CHF - Palliative care to continue.
[2016-12-03] MEDS: FINASTERIDE 5 MG TAB PO SCH (22:35)
[2016-12-04] MEDS: MoRPHine SULFATE 5 MG/0.25 ML UDP PO PRN ×2 (05:19→18:12)
[2016-12-04] MEDS: METOPROLOL SUCC 25MG EXT REL TAB PO SCH (08:00)
[2016-12-04] MEDS: RANITIDINE HCL 150 MG TAB PO SCH (08:00)
[2016-12-04] MEDS: ISOSORBIDE MONONITRATE 30 MG TABCR PO SCH (08:00)
[2016-12-04] MEDS: DILTIAZEM HCL 180 MG CAPCR PO SCH (08:00)
[2016-12-04] MEDS: TAMSULOSIN HCL 0.4 MG CAP PO SCH (08:00)
--- NOTE | 2016-12-04 09:03 | SURGERY PROGRESS NOTE ---
DATE: 12/04/2016 DATE: 12/04/2016. Mr. Dumont was seen today and I had a long discussion with the patient and his son and daughter. He is confused. The nurses only drained a small amount of fluid from his tube. I looked at the PleurX catheter and does not appear to be any problems, but apparently only 75 mL or so were drained. I hooked him back up and drained another 600 mL. His A-a gradient has not increased. He is on 2-3 liters with good saturations. He appears comfortable from a pulmonary standpoint, although quite confused. I am going to order an x-ray on Mr. Dumont. 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 It took me a while to drain this fluid but it remains clear. I am going to check a chest x-ray on him today.
[2016-12-04] MEDS ORDERED: LORAZEPAM INJ 0.5 MG in SYRINGE 0.75 ML IV ONE (09:15)
[2016-12-04] MEDS ORDERED: DIAZEPAM 5MG TAB PO PRN (09:15)
[2016-12-04] MEDS ORDERED: DIAZEPAM INJ 5 MG/ML 2 ML CARP IV ONE (09:15)
--- NOTE | 2016-12-04 10:39 | Hospitalist Progress Note ---
Hospitalist Progress Note Date of Service Dec 04, 2016. Subjective Pt evaluation today including: conversation w/ patient, conversation w/ family , physical exam, chart review, lab review, review of studies, review of inpatient medication list Patient had 600ml drained from PleurX cath today. Patient noted some agitation following. The patient was not reporting pain and did not seem in pain, but seemed anxious. I ordered a single IV dose of Ativan to see if this would benefit. I also ordered po Valium for prn use. In the outpatient setting liquid valium could be part of his comfort regime if we see positive results. Additional Comments: Unable to assess due to confusion. Objective Vital Signs Date Time Temp Pulse Resp B/P Pulse Ox O2 Delivery O2 Flow Rate FiO2 12/04/16 09:00 Nasal Cannula 3.0 12/04/16 00:00 Nasal Cannula 3.0 12/03/16 16:00 Nasal Cannula 3.0 Physical Exam Notes: GEN: Awake anxious and confused, but not agitated. Neck: Soft, supple Lungs: coarse sounds b/l Heart: REG, nrl S1S2 Abdomen: Soft, NT, ND, + BS EXT: No C/C/E NEURO: Not assessed. Skin: warm, dry, no rashes PSYCH: Not combative or abusive. Just anxious. Assessment and Plan Comfort care for patient with end stage CAD with acute/chronic diastolic CHF - Palliative care to continue. - added benzo today with hopes to provide relaxation without being overly sedate. Will monitor for benefit. - Simplifying meds to make transition to home hospice care easier for family.
--- NOTE | 2016-12-04 11:26 | DIAGNOSTIC IMAGING REPORT ---
SINGLE VIEW CHEST CLINICAL HISTORY: Pleural effusion. FINDINGS: An AP, portable, upright chest radiograph is compared to study dated 12/02/2016 and correlated with chest CT dated 06/27/2014. The examination is degraded by portable technique and patient rotation. The patient is status post midline sternotomy. The heart is enlarged and there is atherosclerotic calcification of the thoracic aorta. The trachea is midline. Pulmonary vascular congestion and interstitial edema persist. A pleural drain is again noted at the right lung base. Bilateral pleural effusions are unchanged from 12/02/2016 with bibasilar consolidation. Fluid is noted along the right-sided fissures. Biapical scarring is observed. No pneumothorax is clearly seen. The skeletal structures are osteopenic. Advanced degenerative changes noted in the right shoulder and throughout the thoracic spine. Advanced atherosclerotic calcification is noted in the upper extremity arteries. IMPRESSION: 1. Cardiomegaly with evidence of congestive failure and interstitial edema. This is unchanged to minimally improved from 12/02/2016. 2. A pleural drain at the right lung base is unchanged in position. Bilateral pleural effusions with associated bibasilar consolidation is unchanged. 3. No pneumothorax is identified. Electronically signed by: Denny Ferrari M.D. 12/04/2016 11:25 AM Dictated Date/Time: 12/04/2016 11:22 AM
[2016-12-04] MEDS ORDERED: LORAZEPAM INJ 1 MG in SYRINGE 0.5 ML IV STA (14:52)
[2016-12-04] MEDS: MoRPHine SULFATE 4 MG/ML 1 ML CARP\\VIAL IV PRN (19:10)
[2016-12-04] MEDS: MoRPHine SULFATE 10 MG/0.5 ML UDP PO SCH (21:04)
[2016-12-05] MEDS: MoRPHine SULFATE 10 MG/0.5 ML UDP PO SCH ×6 (00:25→15:00)
[2016-12-05] MEDS: MoRPHine SULFATE 4 MG/ML 1 ML CARP\\VIAL IV PRN ×3 (00:54→09:13)
[2016-12-05] MEDS ORDERED: MoRPHine SULF/NSS 250MG/250ML 250 ML IV PRN (09:30)
[2016-12-05] MEDS ORDERED: NURSING VERBAL MED ORDER ONE (13:15)
--- NOTE | 2016-12-05 15:19 | SURGERY PROGRESS NOTE ---
DATE: 12/05/2016 SUBJECTIVE: Mr. Dumont was seen today. He appears comfortable, has required sedation. He is now on IV morphine. Mr. Dumont may well be at end of life. I think the Pleurx catheter can be helpful just for his breathing and I would continue draining it on a daily basis. I would not cause any pain with this. I had a long discussion with the patient's family about this. EMILY
--- NOTE | 2016-12-05 18:39 | Hospitalist Progress Note ---
Hospitalist Progress Note Date of Service Dec 05, 2016. Subjective Pt evaluation today including: conversation w/ family, physical exam, chart review, lab review, review of studies, review of inpatient medication list Patient is sleeping, comfortably. Morphine gtt is at 3mg/hr. The family reports that he is "at peace". Additional Comments: unobtainable. Objective Vital Signs Date Time Temp Pulse Resp B/P Pulse Ox O2 Delivery O2 Flow Rate FiO2 12/05/16 08:00 Nasal Cannula 3.0 12/05/16 00:00 Nasal Cannula 3.0 Physical Exam Notes: Lungs: coarse sounds, shallow breaths. Heart: Reg Skin: warm and dry. Neuro: unresponsive Assessment and Plan Comfort care for patient with end stage CAD with acute/chronic diastolic CHF - Keep inpatient (or could transition to inpatient palliative care) - Morphine gtt - Can use prn IV Morphine if there would an acute rapid agitation.
--- NOTE | 2016-12-06 09:26 | Hospitalist Progress Note ---
Hospitalist Progress Note Date of Service Dec 06, 2016. Subjective Pt evaluation today including: conversation w/ family, physical exam, chart review, lab review, review of studies, review of inpatient medication list Nursing reports patient sleeping without agitation overnight. He is now sleeping without any sign of discomfort or agitation. He looks peaceful. His daughter from [place] is in the room this am (this is the first I had met her). I updated her on the plan and answered questions. She appreciates all that the hospital has done for her father and the family. Additional Comments: Not obtainable due to unresponsiveness. Objective Vital Signs Date Time Temp Pulse Resp B/P Pulse Ox O2 Delivery O2 Flow Rate FiO2 12/06/16 01:00 Nasal Cannula 3.0 12/05/16 16:00 Nasal Cannula 3.0 Physical Exam Notes: Gen: resting peacefully Lungs : course sounds b/l, shallow breaths Heart: REG Ext: No cyanosis. Assessment and Plan Comfort care for patient with end stage CAD with acute/chronic diastolic CHF - Keep inpatient (or could transition to inpatient palliative care if this is option) - Morphine gtt - Can use prn IV Morphine if there would an acute rapid agitation. - I updated Nurse Navigator and Palliative Care regarding the adjustment in plan. - At end of shift today I will sign out patient to colleague who will take over care.
--- NOTE | 2016-12-06 16:45 | Palliative Care Progress Note ---
Palliative Care Progress Note Date of Service Dec 06, 2016. Subjective Received notification by Dr. Rod that he started a morphine gtt on patient for comfort. Went to patient's room to evaluate. He is obtunded/somnolent, completely unresponsive. Morphine gtt at 3mg/hr. No family at bedside. Respirations easy and unlabored, shallow. JVD noted, heart rate normal. Continuing WOOL SACKER, patient has hours to days. Please contact me if there are any further palliative care needs. It was my pleasure to take care of this nice patient and family.
[2016-12-06 20:00] VITALS: O2SAT 98
[2016-12-07] VITALS: O2SAT 98
--- NOTE | 2016-12-07 10:26 | Progress Note ---
Subjective Date of Service: Dec 07, 2016. Subjective Pt evaluation today including: conversation w/ patient, physical exam, chart review, review of inpatient medication list Seeing patient to continue with nurse, comfortable, in comfort measures, no any uncomfortable, Problem List Medical Problems: (1) Atrial fibrillation with RVR Status: Acute (2) Elevated troponin Status: Acute (3) Heart failure Status: Acute (4) Influenza Status: Acute Review of Systems Constitutional: + problem reported (not able to obtain because of unresponsive) Objective Vital Signs Date Time Temp Pulse Resp B/P Pulse Ox O2 Delivery O2 Flow Rate FiO2 12/07/16 08:20 Nasal Cannula 3.0 12/07/16 00:00 98 Nasal Cannula 3.0 12/06/16 20:00 98 Nasal Cannula 3.0 Physical Exam General Appearance: + thin, + pertinent finding (total uncomfortable) Respiratory/Chest: + decreased breath sounds Cardiovascular: + tachycardia Abdomen: soft Extremities: + pertinent finding (no edema) Neurologic/Psychiatric: + pertinent finding (unresponsive) Skin: + pertinent finding (warm) Assessment and Plan Comfort care for 89 yo patient with end stage CAD with acute/chronic diastolic CHF - cont keep inpatient (or could transition to inpatient palliative care if this is option) - Continue Morphine gtt - Can use prn IV Morphine if there would an acute rapid agitation. - I discussed with nursing staff, I believe patient is active dying, will continue inpatient hospice care Discharge planning: uncertain
[2016-12-08 01:40] VITALS: O2SAT 98
--- NOTE | 2016-12-09 07:40 | Death Summary ---
Summary of Admission Date Nov 27, 2016 at 21:56 Date & Time of Dec 08, 2016. 0450 Cause of resp failure Secondary Diagnoses chf Hospital Course 89 yo patient with end stage CAD with acute/chronic diastolic CHF, Comfort care has been keep inpatient comfortable has been on Continue Morphine gtt on Date: 12/08/16 04: Pt ceased to breath at this time, apical absent, pupil non reactive to light.MD notified. 2 RN to pronounce, Shipyard Laborer notified. certificate signed
== END 2016-12-08 06:15 | disposition expired | DRG 186 ==
LOC: ENRESERVDT → ENRESERVTM → C.2T 21:56 → C.MS4W 12-01 09:38
PROVIDERS: ADMIT Internal Medicine; ATTEND Hospitalist
PROC: 0WH93YZ Insertion of Other Device into Right Pleural Cavity, Percutaneous Approach (ICD-10-PCS; principal; 2016-11-29)
DX: J90 Pleural effusion, not elsewhere classified (principal); I50.33 Acute on chronic diastolic (congestive) heart failure; G93.40 Encephalopathy, unspecified; J96.10 Chronic respiratory failure, unspecified whether with hypoxia or hypercapnia; E43 Unspecified severe protein-calorie malnutrition; J94.8 Other specified pleural conditions; Z51.5 Encounter for palliative care; I25.10 Atherosclerotic heart disease of native coronary artery without angina pectoris; N18.3 Chronic kidney disease, stage 3 (moderate); N40.0 Benign prostatic hyperplasia without lower urinary tract symptoms; K21.9 Gastro-esophageal reflux disease without esophagitis; E78.5 Hyperlipidemia, unspecified; I48.91 Unspecified atrial fibrillation; Z66 Do not resuscitate; E11.21 Type 2 diabetes mellitus with diabetic nephropathy; J11.1 Influenza due to unidentified influenza virus with other respiratory manifestations; D64.9 Anemia, unspecified; I27.2 Other secondary pulmonary hypertension; Z79.01 Long term (current) use of anticoagulants